=== PATIENT | female | born 1960 | race Caucasian/White ===

== ENCOUNTER 2018-01-04 03:57 | Inpatient (IN) | payer MEDICARE ==
[2018-01-04] MEDS ORDERED: Cefepime 2 GM VIAL ONE (05:24)
[2018-01-04] MEDS ORDERED: Acetaminophen 325 MG TAB ONE (05:35)
[2018-01-04 05:46] LABS: Actual Bicarbonate (HCO3a) 20.8 mEq/L (22-26); Base Excess (BEa) 2.3 mEq/L (0 (+/-) 2.5); CO2 Tension 30.5 mmHg (35.0-45.0); Hematocrit-ABG 38.6 % (36.0-47.0); Hemoglobin (Hb) 12.5 g/dL (12.0-16.0); O2 Tension (PaO2) 59.6 mmHg (80.0-100.0); pH, Arterial 7.45 (7.35-7.45)
[2018-01-04 05:47] LABS: Analyzer IN Cardio ER; Calcium, Ionized 1.1 mmol/L (1.12-1.30); Puncture Site RRA
[2018-01-04 05:48] LABS: ALV-art Gradient 99.395 (0-20)
[2018-01-04] MEDS ORDERED: Acetaminophen 325 MG TAB PO PRN (07:31)
[2018-01-04] MEDS ORDERED: Artificial Tears 18 DROP/0.9 ML EA EYE PRN (07:31)
[2018-01-04] MEDS ORDERED: Zolpidem Tartrate 5 MG TAB PO PRN (07:31)
[2018-01-04] MEDS ORDERED: Senokot 8.6 MG TAB PO PRN (07:31)
[2018-01-04] MEDS ORDERED: Sodium Chloride 0.65% Nasal 44 ML BOT EA NARE PRN (07:31)
[2018-01-04] MEDS ORDERED: hydrALAZINE 20 MG/ML VIAL SLOW IVP PRN (07:31)
[2018-01-04] MEDS ORDERED: Diabetic Tussin 200 MG/10 ML UDCUP PO PRN (07:31)
[2018-01-04] MEDS ORDERED: Loratadine 10 MG TAB PO PRN (07:31)
[2018-01-04] MEDS ORDERED: Mag-Al 1200 mg/1200 mg/30 ML UDCUP PO PRN (07:31)
[2018-01-04] MEDS ORDERED: Milk Of Magnesia 30 ML UDCUP PO PRN (07:31)
[2018-01-04] MEDS ORDERED: Chloraseptic Spray 180 ml Bottle PO PRN (07:31)
[2018-01-04] MEDS ORDERED: Eucerin (Mineral Oil/Petrolatum,White) 30 gm Jar TOP PRN (07:31)
[2018-01-04] MEDS ORDERED: Loperamide HCl 2 MG CAP PO PRN (07:31)
[2018-01-04 07:47] VITALS: BMI 2885.1
[2018-01-04] MEDS: Saccharomyces boulardii 250 MG CAP PO SCH (08:23)
[2018-01-04] MEDS: Enoxaparin Sodium 40 MG/0.4 ML SYRINGE SC SCH (08:24)
--- NOTE | 2018-01-04 09:27 | ULT ---
PRELIMINARY REPORT/[facility]/EMERGENTY AFTER-HOURS PROCEDURE US Abdomen Limited, Right Upper Quadrant EXAM DATE/TIME: Exam ordered 01/04/2018 5:22 AM CLINICAL HISTORY: 57 years old, female; Pain; Abdominal pain; Epigastric TECHNIQUE: Real-time ultrasound of the right upper quadrant with image documentation. COMPARISON: No relevant prior studies available. FINDINGS: Liver: Normal. No mass. No intrahepatic bile duct dilation. Gallbladder: There is no gallbladder wall thickening. A negative sonographic Marie sign is reported. Nonspecific gallbladder distention is present. Common bile duct: CBD measures approximate 4 mm in diameter. No stones. No dilation. Pancreas: Unremarkable as visualized. Right kidney: RIGHT kidney measures 10.4 x 4.5 x 4.5 cm. No stones. No hydronephrosis. IMPRESSION: Unremarkable RIGHT upper quadrant ultrasound. Thank you for allowing us to participate in the care of your patient. Dictated and Authenticated by: Jabier Hand MD 01/04/2018 5:54 AM Central Time ([place] & [place]) FINAL REPORT EMERGENCY AFTER HOURS RIGHT UPPER QUADRANT ULTRASOUND: Date: 01/04/18 Time: 0528 hours FINDINGS: No gallstones or ductal dilatation, or other acute process. IMPRESSION: Unremarkable right upper quadrant ultrasound. Report in agreement with preliminary report given on-call by [facility]. POS: OFF
[2018-01-04] MEDS: HYDROcodone/Acetaminophen 5/325 mg Tablet PO PRN ×3 (11:05→23:27)
[2018-01-04] MEDS: NS 0.9% w/ 20 MEQ KCL 1,000 ML/1,000 ML BAG IV SCH ×2 (11:41→18:44)
--- NOTE | 2018-01-04 11:57 | HP ---
PRIMARY CARE PHYSICIAN: Jo Ann Hamilton M.D. REASON FOR ADMISSION: Sepsis, pneumonia. HISTORY OF PRESENT ILLNESS: A 57-year-old female who has underlying history of COPD who initially went to [facility] for evaluation of nausea , vomiting and abdominal pain on the left side. She was also having high grade fever with chills. All symptoms started yesterday afternoon. Patient was feeling very weak. She was also having cough productive of greenish sputum with tinged amount of blood. She denies any recent travel or sick exposures. She denies any flu-like illness. She denies any upper respiratory infection. Patient also started feeling shortness of breath and she was having increasing amount of fever and that is why she decided to go to local emergency room in [place]. At [facility], patient had CT of the abdomen and pelvis which showed left lower lobe consolidation as well as gallbladder distention. Subsequently, patient had right upper quadrant ultrasound which was normal. The patient was afebrile with temperature of 102. She was tachycardic and hypotensive. She was meeting sepsis criteria. At [facility], patient was given levofloxacin, azithromycin, DuoNeb therapy, morphine, Toradol , and Phenergan. Subsequently, patient was transferred to our hospital for further evaluation and treatment. In our emergency room, patient has received cefepime without any side effect. The patient was persistently tachycardic and that is why she was admitted to telemetry floor. When I saw this patient, at that time, patient was afebrile, but tachycardic. Subsequently, patient had fever up to 100.5. Her pulse was also going to 140s whenever she was exerting herself. The patient reports that she does have home oxygen, but she is not using oxygen all the time. She continued to smoke about 1 pack per day. She denies any other alcohol abuse. PAST MEDICAL HISTORY: COPD and tobacco abuse disorder. PAST PSYCHIATRIC HISTORY: Anxiety and depression. PAST SURGICAL HISTORY: . SOCIAL HISTORY: Patient is smoking about 1 pack per day. She lives at home with her family. No history of alcohol abuse. She denies any other illicit drug abuse. EMERGENCY ROOM COURSE: Patient is given morphine 4 mg, Toradol 30 mg, Phenergan 25 mg, IV fluids, DuoNeb therapy, azithromycin and levofloxacin. The patient has received cefepime in our emergency room. ALLERGY: Penicillin CURRENT HOME MEDICATION: Prozac, Breo Ellipta, celebrex FAMILY HISTORY: No strong family history of premature coronary artery disease, stroke or cancer. REVIEW OF SYSTEMS: The following complete review of systems was negative, unless otherwise mentioned in the HPI or below: Constitutional: Weight loss or gain, ability to conduct usual activities. Skin: Rash, itching. Eyes: Double vision, pain. ENT/Mouth: Nose bleeding, neck stiffness, pain, tenderness. Cardiovascular: Palpitations, dyspnea on exertion, orthopnea. Respiratory: Shortness of breath, wheezing, cough, hemoptysis, fever or night sweats. Gastrointestinal: Poor appetite, abdominal pain, heartburn, nausea, vomiting, constipation, or diarrhea. Genitourinary: Urgency, frequency, dysuria, nocturia. Musculoskeletal: Pain, swelling. Neurologic/Psychiatric: Anxiety, depression. Allergy/Immunologic: Skin rash, bleeding tendency. Please see my HPI for pertinent positive and negative. All other review of systems reviewed and negative except as mentioned in the HPI. PHYSICAL EXAMINATION: VITAL SIGNS: On arrival, temperature 100.5, pulse 114, respiratory rate 20, saturation 96% on 2 liters nasal cannula, blood pressure 116/58, weight 102 pounds. GENERAL: Patient is currently alert, awake, febrile, tachycardic. No obvious acute distress. HEAD: Normocephalic, atraumatic. EYES: Pupils round, reactive to light. Extraocular muscle intact. ENT: Oropharynx within normal limits. Moist mucous membranes. No oral lesions , no pharyngeal erythema, no exudate. NECK: Supple, no JVD, no thyromegaly, no carotid bruit. LUNGS: Bibasilar rales noted predominantly on the left side. End expiratory wheezing heard. No accessory muscles of respiration in use. CARDIAC: S1 and S2 regular, tachycardia, no murmur, no gallop, no rub. ABDOMEN: Soft, bowel sounds present, nontender, nondistended. No organomegaly , no mass, no suprapubic tenderness, no Marie sign, no organomegaly. BACK: Examination unremarkable, no CVA tenderness. EXTREMITIES: Upper extremity, passive movement of all joints are normal. Lower extremities, no edema. Good peripheral pulsation, no calf tenderness. SKIN: No skin rash. HEMATOLOGICAL SYSTEM: No lymphadenopathy. PSYCHIATRIC: Normal affect. NEUROLOGIC: The patient is alert and oriented x3. Cranial nerves II-XII intact. Grossly nonfocal examination. She moves all 4 limbs. IMAGING DATA AND SIGNIFICANT LABORATORY DATA: EKG showing sinus tachycardia. Right upper quadrant ultrasound is normal. CT abdomen and pelvis showing dense consolidation in left lower lobe with pleural fluid. Moderate distention of gallbladder with intrahepatic biliary ductal dilatation. CBC: WBC 8.4, hemoglobin 14.3, platelet 311 with bandemia. ABG: PH 7.45, CO2 30.5, bicarbonate 20.8, oxygen 59.6, saturation 93.5 on oxygen. BMP: Sodium 134, potassium 3.4, chloride 98, carbon dioxide 23, anion gap 16, BUN 12, creatinine 0.72, glucose 107, calcium 9.1, lactic acid 2.6. LFT: AST 21, ALT 15, alkaline phosphatase 86, albumin 4.1, BNP 97.9 and lipase 5. ASSESSMENT AND PLAN/IMPRESSION: 1. Sepsis secondary to community-acquired pneumonia. Patient will be treated with cefepime and levofloxacin. We will follow up on culture result. We will continue with IV fluid. We will monitor closely on telemetry floor. This patient has high-grade fever, tachycardia, bandemia and lactic acidosis and she also has associated hypoxemia secondary to pneumonia. 2. Community-acquired pneumonia, left basilar consolidation with hypoxemia. The patient is treated with cefepime 2 grams IV q.12 hourly, levofloxacin 750 mg IV daily, DuoNeb q.6 hourly, Mucinex 600 mg twice daily. The patient will be given IV fluid and we will monitor on telemetry floor. We will monitor her oxygen saturation daily basis. 3. Lactic acidosis, likely due to sepsis and repeat lactic acid level is normal. 4. Hyponatremia, hypokalemia. Patient will be given NS with potassium chloride 825 mL per hour and we will repeat BMP tomorrow. 5. Chronic obstructive pulmonary disease exacerbation, likely due to underlying pneumonia. She will be treated with DuoNeb therapy every 6 hourly and as needed basis along with Dulera 2 puffs inhalation b.i.d. 6. Tobacco abuse disorder. Smoking cessation counseling given. We will offer nicotine patch if needed. 7. Gastroesophageal reflux disease. We will treat with Protonix 40 mg p.o. daily. 8. Deep venous thrombosis prophylaxis, Lovenox 40 mg subcu daily. 9. Gastrointestinal prophylaxis, Protonix 40 mg p.o. daily. CODE STATUS: The patient is FULL CODE. The patient is making her decision by herself. She does not have any surrogate decision maker. Disposition plan based on clinical course. We are expecting patient's stay in hospital more than 2 midnights. Plan of care discussed with the patient in detail. LUISA
[2018-01-04] MEDS: Promethazine HCl 25 MG/ML VIAL IM/IV PRN (13:42)
[2018-01-04] MEDS: Cefepime 2 GM in Sodium Chloride 0.9% 100 ML IVPB SCH (18:45)
[2018-01-04] MEDS: Mometasone/Formoterol 120 PUFF INHALER INH SCH ×2 (18:59→19:00)
[2018-01-04] MEDS: Montelukast Sodium 10 mg Tablet PO SCH (19:50)
[2018-01-04] MEDS: guaiFENesin ER 600 MG TAB PO SCH (19:50)
[2018-01-04 23:46] LABS: Bilirubin Negative (Negative); Blood, Urine Negative (Negative); Clarity CLEAR (Clear); Glucose, Urine (Dipstick) Negative (Negative); Leukocyte Negative (Negative); Nitrite Negative (Negative); Protein, Urine (Dipstick) Negative (Neg-Trace); Specific Gravity, Urine 1.013 (1.002-1.036); Urobilinogen 0.2 mg/dL (0.2-1.0); pH, Urine 5.5 (5.0-9.0)
[2018-01-04 23:49] LABS: Bacteria/HPF None Seen HPF (None Seen); Hyaline Casts/LPF 0-3 HYALINE CAST LPF (0-3 Hyaline); Pathc Cast-AUWi Flag 0.29 (0-2.49); RBC/HPF 0-3 HPF (0-3); Squamous Epithelial 0-3 HPF (0-3); WBC/HPF 0-3 HPF (0-3)
[2018-01-05] MEDS: Ipratropium Bromide 2.5 ml Neb NEB SCH ×4 (00:57→19:29)
[2018-01-05] MEDS: Cefepime 2 GM in Sodium Chloride 0.9% 100 ML IVPB SCH ×2 (05:05→17:35)
[2018-01-05] MEDS: NS 0.9% w/ 20 MEQ KCL 1,000 ML/1,000 ML BAG IV SCH ×3 (05:05→17:35)
[2018-01-05] MEDS: HYDROcodone/Acetaminophen 5/325 mg Tablet PO PRN ×5 (05:06→23:46)
[2018-01-05 05:23] LABS: ALT (SGPT) 10 U/L (8-55); AST (SGOT) 16 U/L (5-34); Alkaline Phosphatase 63 U/L (40-150); Anion Gap 9 mmol/L (10-20); BUN (Urea Nitrogen) 12 mg/dL (9.8-20.1); Bilirubin, Total 0.5 mg/dL (0.2-1.2); Calc. Creatinine Clearance 72 mL/min (70-130); Calcium 8.2 mg/dL (7.8-10.44); Carbon Dioxide 18 mmol/L (22-29); Chloride 110 mmol/L (98-107); Estimated GFR-MDRD Greater than 90; Glucose 61 mg/dL (70-105); Potassium 3.7 mmol/L (3.5-5.1); Sodium 133 mmol/L (136-145)
[2018-01-05 05:33] LABS: Band 38 % (5-11); Hemoglobin 13.3 g/dL (12.0-16.0); Lymphocytes 18 % (21-51); MDiff Complete? YES; Mean Corpuscular Hemoglobin 32.7 pg (27.0-31.0); Mean Corpuscular Volume 96.2 fl (81.0-99.0); Mean Platelet Volume 6.5 fL (7.4-10.4); Metamyelocyte 3 % (0-0); Monocytes 3 % (0-10); Neutrophil 38 % (42-75); Platelet Count 203 thou/uL (130-400); RBC Distribution Width 11.4 % (11.5-14.5); Red Blood Cell (RBC) Count 4.06 mill/uL (4.20-5.40); Toxic Granulation SLIGHT; Vacuoles SLIGHT; White Blood Cell (WBC) Count 7.3 thou/uL (4.8-10.8)
[2018-01-05] MEDS: Mometasone/Formoterol 120 PUFF INHALER INH SCH ×4 (07:28→19:32)
[2018-01-05] MEDS: Enoxaparin Sodium 40 MG/0.4 ML SYRINGE SC SCH (08:58)
[2018-01-05] MEDS: Saccharomyces boulardii 250 MG CAP PO SCH (08:59)
[2018-01-05] MEDS: DULoxetine 60 MG CAP PO SCH (08:59)
[2018-01-05] MEDS: CeleCOXIB 100 MG CAP PO SCH (08:59)
[2018-01-05] MEDS: guaiFENesin ER 600 MG TAB PO SCH ×2 (08:59→19:37)
[2018-01-05] MEDS: PARoxetine 20 MG TAB PO SCH (08:59)
[2018-01-05] MEDS ORDERED: Prevnar 13-Val Conj/PF 0.5 ML SYRINGE IM ONE (09:00)
--- NOTE | 2018-01-05 10:23 | PDOC.PN ---
- Subjective Encounter Start Date: 01/05/18 Encounter Start Time: 07:20 -: old records requested/rev Patient seen and examined. No new complaints. No overnight events no fever today, feels better, has pleuritic chest pain - Objective Resuscitation Status: Resuscitation Status FULL:Full Resuscitation MAR Reviewed: Yes Vital Signs & Weight: Vital Signs (12 hours) Temp Pulse Resp BP BP Pulse Ox 01/05/18 07:26 102 H 18 92 L 01/05/18 07:09 98.3 F 104 H 16 117/55 L 92 L 01/05/18 04:00 98.3 F 101 H 17 120/56 L 94 L 01/05/18 00:57 100 16 95 01/04/18 23:34 99.8 F H 118 H 18 129/63 93 L Weight Weight 107 lb I&O: 01/04/18 01/05/18 01/06/18 06:59 06:59 06:59 Intake Total 1670 Output Total 100 Balance 1570 Result Diagrams: 01/05/18 04:54 01/05/18 04:54 EKG Reviewed by me: Yes (nsr) Phys Exam - Physical Examination Constitutional: NAD HEENT: PERRLA, moist MMs, sclera anicteric Neck: no JVD, supple Respiratory: no wheezing, no rhonchi left base rales Cardiovascular: RRR, no significant murmur, no rub Gastrointestinal: soft, non-tender, no distention, positive bowel sounds Musculoskeletal: no edema, pulses present Neurological: non-focal, normal sensation, moves all 4 limbs Lymphatic: no nodes Psychiatric: normal affect, A&O x 3 Skin: no rash, normal turgor Dx/Plan (1) COPD exacerbation Code(s): J44.1 - CHRONIC OBSTRUCTIVE PULMONARY DISEASE W (ACUTE) EXACERBATION Status: Acute (2) Community acquired bacterial pneumonia Code(s): J15.9 - UNSPECIFIED BACTERIAL PNEUMONIA Status: Acute (3) Hypoxia Code(s): R09.02 - HYPOXEMIA Status: Acute (4) Lactic acidosis Code(s): E87.2 - ACIDOSIS Status: Acute (5) Sepsis Code(s): A41.9 - SEPSIS, UNSPECIFIED ORGANISM Status: Acute (6) Anxiety and depression Code(s): F41.9 - ANXIETY DISORDER, UNSPECIFIED; F32.9 - MAJOR DEPRESSIVE DISORDER, SINGLE EPISODE, UNSPECIFIED Status: Chronic (7) GERD (gastroesophageal reflux disease) Code(s): K21.9 - GASTRO-ESOPHAGEAL REFLUX DISEASE WITHOUT ESOPHAGITIS Status: Chronic (8) Tobacco abuse Code(s): Z72.0 - TOBACCO USE Status: Chronic - Plan cont current plan of care, plan discussed w/ family, continue antibiotics, respiratory therapy * continue cefepime and levaquin * continue respiratory therapy * pt is improving * will dc tele * transfer to medical * expecting discharge on wednesday * medication reviewed as below * symptomatic treatment * discussed with * counselled to avoid smoking. Review of Systems - Review of Systems Constitutional: negative: fever, chills, sweats, weakness, malaise, other Eyes: negative: Pain, Vision Change, Conjunctivae Inflammation, Eyelid Inflammation, Redness, Other ENT: negative: Ear Pain, Ear Discharge, Nose Pain, Nose Discharge, Nose Congestion, Mouth Pain, Mouth Swelling, Throat Pain, Throat Swelling, Other Respiratory: Cough, Hemoptysis, SOB with Excertion, Pleuritic Pain, Sputum. negative: Dry, Shortness of Breath, Wheezing Cardiovascular: negative: chest pain, palpitations, orthopnea, paroxysmal nocturnal dyspnea, edema, light headedness, other Gastrointestinal: negative: Nausea, Vomiting, Abdominal Pain, Diarrhea, Constipation, Melena, Hematochezia, Other Genitourinary: negative: Dysuria, Frequency, Incontinence, Hematuria, Retention , Other Musculoskeletal: negative: Neck Pain, Shoulder Pain, Arm Pain, Back Pain, Hand Pain, Leg Pain, Foot Pain, Other Skin: negative: Rash, Lesions, Jace, Bruising, Other - Medications/Allergies Allergies/Adverse Reactions: Allergies Allergy/AdvReac Type Severity Reaction Status Date / Time methylprednisolone sodium Allergy Verified 06/06/13 17:03 succinate [From Solu-Medrol] ondansetron HCl [From Zofran] Allergy Verified 06/06/13 17:03 Penicillins Allergy Verified 06/06/13 17:02 Medications: Current Medications Acetaminophen (Tylenol) 650 mg PO Q4H PRN PRN Reason: Headache/Fever or Pain Last Admin: 01/04/18 23:28 Dose: 650 mg Hydrocodone Bitart/Acetaminophen ([place] 5/325) 1 tab PO Q4H PRN PRN Reason: Moderate Pain (4-6) Last Admin: 01/05/18 09:17 Dose: 1 tab Al Hydroxide/Mg Hydroxide (Maalox) 30 ml PO Q6H PRN PRN Reason: Heartburn or Indigestion Albuterol/Ipratropium (Duoneb) 3 ml NEB [id number] PRN PRN Reason: SOB &/or Wheezing Last Admin: 01/04/18 18:56 Dose: 3 ml Artificial Tears (Tears Naturale) 0 drop EA EYE PRN PRN PRN Reason: Dry Eyes Celecoxib (Celebrex) 200 mg PO DAILY [facility] Last Admin: 01/05/18 08:59 Dose: Not Given Duloxetine HCl (Cymbalta) 60 mg PO DAILY [facility] Last Admin: 01/05/18 08:59 Dose: 60 mg Enoxaparin Sodium (Lovenox) 40 mg SC 0900 [facility] Last Admin: 01/05/18 08:58 Dose: 40 mg Guaifenesin (Robitussin Sf) 200 mg PO Q4H PRN PRN Reason: Cough Guaifenesin (Mucinex) 600 mg PO Q12HR [facility] Last Admin: 01/05/18 08:59 Dose: 600 mg Hydralazine HCl (Apresoline) 10 mg SLOW IVP Q4H PRN PRN Reason: Systolic BP > 180 Cefepime HCl 2 gm/ Sodium (Chloride) 100 mls @ 200 mls/hr IVPB 0600,1800 [facility] Last Admin: 01/05/18 05:05 Dose: 100 mls Levofloxacin 750 mg/ Device 150 mls @ 100 mls/hr IVPB Q24HR [facility] Last Admin: 01/05/18 08:58 Dose: 150 mls Potassium Chloride/Sodium Chloride (Ns 0.9% W/ 20 Meq Kcl) 1,000 ml in 1,000 mls @ 125 mls/hr IV .Q8H [facility] Last Admin: 01/05/18 05:05 Dose: 1,000 mls Ipratropium [place] (Atrovent) 3 ml NEB [id number] [facility] Last Admin: 01/05/18 07:26 Dose: 3 ml Loperamide HCl (Imodium) 2 mg PO PRN PRN PRN Reason: Diarrhea/Loose Stools Loratadine (Claritin) 10 mg PO DAILYPRN PRN PRN Reason: Sinus Symptoms Magnesium Hydroxide (Milk Of Magnesium) 30 ml PO DAILYPRN PRN PRN Reason: Constipation Mineral Oil/White Petrolatum (Eucerin Cream) 0 gm TOP BIDPRN PRN PRN Reason: Dry Skin Mometasone Furoate/Formoterol Fumar (Dulera 200 Mcg/5 Mcg Inhaler) 2 puff INH BID-RT [facility] Last Admin: 01/05/18 07:29 Dose: Not Given Mometasone Furoate/Formoterol Fumar (Dulera 200 Mcg/5 Mcg Inhaler) 2 puff INH BID-RT [facility] Last Admin: 01/05/18 07:28 Dose: 2 puff Montelukast Sodium (Singulair) 10 mg PO HS [facility] Last Admin: 01/04/18 19:50 Dose: 10 mg Pantoprazole Sodium (Protonix) 40 mg PO DAILY [facility] Last Admin: 01/05/18 08:59 Dose: 40 mg Paroxetine HCl (Paxil) 40 mg PO DAILY [facility] Last Admin: 01/05/18 08:59 Dose: Not Given Phenol (Chloraseptic [place] 180 Ml Bot) 0 ml PO PRN PRN PRN Reason: Sore Throat Promethazine HCl (Phenergan) 12.5 mg IM/IV Q6H PRN PRN Reason: Nausea/Vomiting Last Admin: 01/04/18 13:42 Dose: 12.5 mg Saccharomyces Boulardii (Florastor) 250 mg PO DAILY [facility] Last Admin: 01/05/18 08:59 Dose: 250 mg Senna (Senokot) 2 tab PO HSPRN PRN PRN Reason: Constipation Sodium Chloride ([place] Nasal [place] 0.65%) 0 ml EA NARE QIDPRN PRN PRN Reason: Nasal Congestion Sodium Chloride (Flush - Normal Saline) 10 ml IVF Q12HR [facility] Last Admin: 01/05/18 08:57 Dose: 10 ml Sodium Chloride (Flush - Normal Saline) 10 ml IVF PRN PRN PRN Reason: Saline Flush Zolpidem Tartrate (Ambien) 5 mg PO HSPRN PRN PRN Reason: Insomnia
[2018-01-05] MEDS: Montelukast Sodium 10 mg Tablet PO SCH (19:37)
[2018-01-06] MEDS: Ipratropium Bromide 2.5 ml Neb NEB SCH ×4 (00:31→19:05)
[2018-01-06] MEDS: NS 0.9% w/ 20 MEQ KCL 1,000 ML/1,000 ML BAG IV SCH ×3 (02:01→19:04)
[2018-01-06] MEDS: Cefepime 2 GM in Sodium Chloride 0.9% 100 ML IVPB SCH ×2 (06:57→18:20)
[2018-01-06] MEDS: HYDROcodone/Acetaminophen 5/325 mg Tablet PO PRN ×2 (06:57→11:46)
[2018-01-06] MEDS: Mometasone/Formoterol 120 PUFF INHALER INH SCH ×2 (07:14→20:09)
[2018-01-06] MEDS: guaiFENesin ER 600 MG TAB PO SCH ×2 (08:18→20:04)
[2018-01-06] MEDS: Saccharomyces boulardii 250 MG CAP PO SCH (08:18)
[2018-01-06] MEDS: DULoxetine 60 MG CAP PO SCH (08:18)
[2018-01-06] MEDS: CeleCOXIB 100 MG CAP PO SCH (08:18)
[2018-01-06] MEDS: PARoxetine 20 MG TAB PO SCH ×2 (08:19→08:22)
[2018-01-06] MEDS: Enoxaparin Sodium 40 MG/0.4 ML SYRINGE SC SCH (08:19)
--- NOTE | 2018-01-06 10:53 | PDOC.PN ---
- Subjective Encounter Start Date: 01/06/18 Encounter Start Time: 09:10 Patient seen and examined. No new complaints. No overnight events - Objective Resuscitation Status: Resuscitation Status FULL:Full Resuscitation MAR Reviewed: Yes Vital Signs & Weight: Vital Signs (12 hours) Temp Pulse Resp BP BP Pulse Ox 01/06/18 07:28 97.9 F 106 H 20 103/48 L 91 L 01/06/18 07:23 98.6 F 93 16 01/06/18 07:14 93 16 01/06/18 07:09 93 L 01/06/18 07:04 93 16 01/06/18 05:57 98.6 F 95 16 106/66 93 L 01/06/18 01:40 98.3 F 94 18 93/60 92 L 01/06/18 00:31 91 16 93 L 01/06/18 00:15 97.9 F 83 18 99/63 93 L Weight Weight 107 lb I&O: 01/05/18 01/06/18 01/07/18 06:59 06:59 06:59 Intake Total 1670 2600 Output Total 100 Balance 1570 2600 Result Diagrams: 01/05/18 04:54 01/05/18 04:54 Phys Exam - Physical Examination Constitutional: NAD HEENT: PERRLA, moist MMs, sclera anicteric Neck: no JVD, supple Respiratory: no wheezing, no rales, no rhonchi Cardiovascular: RRR, no significant murmur, no rub Gastrointestinal: soft, non-tender, no distention, positive bowel sounds Musculoskeletal: no edema, pulses present Neurological: non-focal, normal sensation, moves all 4 limbs Psychiatric: normal affect, A&O x 3 Skin: no rash, normal turgor Dx/Plan (1) COPD exacerbation Code(s): J44.1 - CHRONIC OBSTRUCTIVE PULMONARY DISEASE W (ACUTE) EXACERBATION Status: Acute (2) Community acquired bacterial pneumonia Code(s): J15.9 - UNSPECIFIED BACTERIAL PNEUMONIA Status: Acute (3) Hypoxia Code(s): R09.02 - HYPOXEMIA Status: Acute (4) Lactic acidosis Code(s): E87.2 - ACIDOSIS Status: Acute (5) Sepsis Code(s): A41.9 - SEPSIS, UNSPECIFIED ORGANISM Status: Acute (6) Anxiety and depression Code(s): F41.9 - ANXIETY DISORDER, UNSPECIFIED; F32.9 - MAJOR DEPRESSIVE DISORDER, SINGLE EPISODE, UNSPECIFIED Status: Chronic (7) GERD (gastroesophageal reflux disease) Code(s): K21.9 - GASTRO-ESOPHAGEAL REFLUX DISEASE WITHOUT ESOPHAGITIS Status: Chronic (8) Tobacco abuse Code(s): Z72.0 - TOBACCO USE Status: Chronic - Plan cont current plan of care, continue antibiotics, respiratory therapy * continue cefepime and levaquin today * expecting discharge tomorrow * medication reviewed as below * symptomatic treatment * improving. Review of Systems - Review of Systems Constitutional: negative: fever, chills, sweats, weakness, malaise, other Eyes: negative: Pain, Vision Change, Conjunctivae Inflammation, Eyelid Inflammation, Redness, Other ENT: negative: Ear Pain, Ear Discharge, Nose Pain, Nose Discharge, Nose Congestion, Mouth Pain, Mouth Swelling, Throat Pain, Throat Swelling, Other Respiratory: Cough, Pleuritic Pain, Sputum. negative: Dry, Shortness of Breath , Hemoptysis, SOB with Excertion, Wheezing Cardiovascular: negative: chest pain, palpitations, orthopnea, paroxysmal nocturnal dyspnea, edema, light headedness, other Gastrointestinal: negative: Nausea, Vomiting, Abdominal Pain, Diarrhea, Constipation, Melena, Hematochezia, Other Genitourinary: negative: Dysuria, Frequency, Incontinence, Hematuria, Retention , Other Musculoskeletal: negative: Neck Pain, Shoulder Pain, Arm Pain, Back Pain, Hand Pain, Leg Pain, Foot Pain, Other Skin: negative: Rash, Lesions, Jace, Bruising, Other - Medications/Allergies Allergies/Adverse Reactions: Allergies Allergy/AdvReac Type Severity Reaction Status Date / Time methylprednisolone sodium Allergy Verified 06/06/13 17:03 succinate [From Solu-Medrol] ondansetron HCl [From Zofran] Allergy Verified 06/06/13 17:03 Penicillins Allergy Verified 06/06/13 17:02 Medications: Current Medications Acetaminophen (Tylenol) 650 mg PO Q4H PRN PRN Reason: Headache/Fever or Pain Last Admin: 01/04/18 23:28 Dose: 650 mg Hydrocodone Bitart/Acetaminophen ([place] 5/325) 1 tab PO Q4H PRN PRN Reason: Moderate Pain (4-6) Last Admin: 01/06/18 06:57 Dose: 1 tab Al Hydroxide/Mg Hydroxide (Maalox) 30 ml PO Q6H PRN PRN Reason: Heartburn or Indigestion Albuterol/Ipratropium (Duoneb) 3 ml NEB [id number] PRN PRN Reason: SOB &/or Wheezing Last Admin: 01/05/18 13:21 Dose: 3 ml Artificial Tears (Tears Naturale) 0 drop EA EYE PRN PRN PRN Reason: Dry Eyes Celecoxib (Celebrex) 200 mg PO DAILY [facility] Last Admin: 01/06/18 08:18 Dose: Not Given Duloxetine HCl (Cymbalta) 60 mg PO DAILY [facility] Last Admin: 01/06/18 08:18 Dose: 60 mg Enoxaparin Sodium (Lovenox) 40 mg SC 0900 [facility] Last Admin: 01/06/18 08:19 Dose: 40 mg Guaifenesin (Robitussin Sf) 200 mg PO Q4H PRN PRN Reason: Cough Guaifenesin (Mucinex) 600 mg PO Q12HR [facility] Last Admin: 01/06/18 08:18 Dose: 600 mg Hydralazine HCl (Apresoline) 10 mg SLOW IVP Q4H PRN PRN Reason: Systolic BP > 180 Cefepime HCl 2 gm/ Sodium (Chloride) 100 mls @ 200 mls/hr IVPB 0600,1800 [facility] Last Admin: 01/06/18 06:57 Dose: 100 mls Levofloxacin 750 mg/ Device 150 mls @ 100 mls/hr IVPB Q24HR [facility] Last Admin: 01/06/18 08:26 Dose: 150 mls Potassium Chloride/Sodium Chloride (Ns 0.9% W/ 20 Meq Kcl) 1,000 ml in 1,000 mls @ 125 mls/hr IV .Q8H [facility] Last Admin: 01/06/18 02:01 Dose: 1,000 mls Ipratropium [place] (Atrovent) 3 ml NEB [id number] [facility] Last Admin: 01/06/18 07:04 Dose: 2.5 ml Loperamide HCl (Imodium) 2 mg PO PRN PRN PRN Reason: Diarrhea/Loose Stools Loratadine (Claritin) 10 mg PO DAILYPRN PRN PRN Reason: Sinus Symptoms Magnesium Hydroxide (Milk Of Magnesium) 30 ml PO DAILYPRN PRN PRN Reason: Constipation Mineral Oil/White Petrolatum (Eucerin Cream) 0 gm TOP BIDPRN PRN PRN Reason: Dry Skin Mometasone Furoate/Formoterol Fumar (Dulera 200 Mcg/5 Mcg Inhaler) 2 puff INH BID-RT [facility] Last Admin: 01/06/18 07:14 Dose: 2 puff Montelukast Sodium (Singulair) 10 mg PO HS [facility] Last Admin: 01/05/18 19:37 Dose: 10 mg Pantoprazole Sodium (Protonix) 40 mg PO DAILY [facility] Last Admin: 01/06/18 08:19 Dose: 40 mg Paroxetine HCl (Paxil) 40 mg PO DAILY [facility] Last Admin: 01/06/18 08:22 Dose: Not Given Phenol (Chloraseptic [place] 180 Ml Bot) 0 ml PO PRN PRN PRN Reason: Sore Throat Promethazine HCl (Phenergan) 12.5 mg IM/IV Q6H PRN PRN Reason: Nausea/Vomiting Last Admin: 01/04/18 13:42 Dose: 12.5 mg Saccharomyces Boulardii (Florastor) 250 mg PO DAILY [facility] Last Admin: 01/06/18 08:18 Dose: 250 mg Senna (Senokot) 2 tab PO HSPRN PRN PRN Reason: Constipation Sodium Chloride ([place] Nasal [place] 0.65%) 0 ml EA NARE QIDPRN PRN PRN Reason: Nasal Congestion Sodium Chloride (Flush - Normal Saline) 10 ml IVF Q12HR [facility] Last Admin: 01/06/18 08:20 Dose: Not Given Sodium Chloride (Flush - Normal Saline) 10 ml IVF PRN PRN PRN Reason: Saline Flush Zolpidem Tartrate (Ambien) 5 mg PO HSPRN PRN PRN Reason: Insomnia
[2018-01-06] MEDS: Promethazine HCl 25 MG/ML VIAL IM/IV PRN (19:04)
[2018-01-06] MEDS: Montelukast Sodium 10 mg Tablet PO SCH (20:04)
[2018-01-07] MEDS: Ipratropium Bromide 2.5 ml Neb NEB SCH ×2 (00:11→07:01)
[2018-01-07] MEDS: Promethazine HCl 25 MG/ML VIAL IM/IV PRN ×2 (00:28→08:29)
[2018-01-07] MEDS: Cefepime 2 GM in Sodium Chloride 0.9% 100 ML IVPB SCH (05:30)
[2018-01-07] MEDS: NS 0.9% w/ 20 MEQ KCL 1,000 ML/1,000 ML BAG IV SCH ×2 (05:30→11:31)
[2018-01-07] MEDS: Mometasone/Formoterol 120 PUFF INHALER INH SCH (06:44)
[2018-01-07] MEDS: PARoxetine 20 MG TAB PO SCH (08:14)
[2018-01-07] MEDS: CeleCOXIB 100 MG CAP PO SCH (08:14)
[2018-01-07] MEDS: DULoxetine 60 MG CAP PO SCH (08:15)
[2018-01-07] MEDS: Enoxaparin Sodium 40 MG/0.4 ML SYRINGE SC SCH ×2 (08:15→08:22)
[2018-01-07] MEDS: guaiFENesin ER 600 MG TAB PO SCH (08:15)
[2018-01-07] MEDS: Saccharomyces boulardii 250 MG CAP PO SCH (08:15)
--- NOTE | 2018-01-07 10:31 | PDOC.PN ---
- Subjective Encounter Start Date: 01/07/18 Encounter Start Time: 07:50 Patient seen and examined pneumonia, today she has nausea and does not feel normal, is not ready to take discharge. No overnight events - Objective Resuscitation Status: Resuscitation Status FULL:Full Resuscitation MAR Reviewed: Yes Vital Signs & Weight: Vital Signs (12 hours) Temp Pulse Resp BP BP Pulse Ox 01/07/18 08:00 98.0 F 105 H 16 01/07/18 07:00 98.0 F 105 H 16 122/74 97 01/07/18 06:45 110 H 18 01/07/18 04:26 98.3 F 103 H 20 125/82 97 01/07/18 00:00 98.0 F 106 H 18 134/83 98 Weight Weight 107 lb I&O: 01/06/18 01/07/18 01/08/18 06:59 06:59 06:59 Intake Total 2600 3520 Balance 2600 3520 Result Diagrams: 01/05/18 04:54 01/05/18 04:54 Phys Exam - Physical Examination Constitutional: NAD HEENT: PERRLA, moist MMs, sclera anicteric Neck: no JVD, supple Respiratory: no wheezing, no rales, no rhonchi reduced air entry Cardiovascular: RRR, no significant murmur, no rub Gastrointestinal: soft, non-tender, no distention, positive bowel sounds Musculoskeletal: no edema, pulses present Neurological: non-focal, normal sensation, moves all 4 limbs Lymphatic: no nodes Psychiatric: normal affect, A&O x 3 Skin: no rash, normal turgor Dx/Plan (1) COPD exacerbation Code(s): J44.1 - CHRONIC OBSTRUCTIVE PULMONARY DISEASE W (ACUTE) EXACERBATION Status: Acute (2) Community acquired bacterial pneumonia Code(s): J15.9 - UNSPECIFIED BACTERIAL PNEUMONIA Status: Acute (3) Hypoxia Code(s): R09.02 - HYPOXEMIA Status: Acute (4) Lactic acidosis Code(s): E87.2 - ACIDOSIS Status: Acute (5) Sepsis Code(s): A41.9 - SEPSIS, UNSPECIFIED ORGANISM Status: Acute (6) Anxiety and depression Code(s): F41.9 - ANXIETY DISORDER, UNSPECIFIED; F32.9 - MAJOR DEPRESSIVE DISORDER, SINGLE EPISODE, UNSPECIFIED Status: Chronic (7) GERD (gastroesophageal reflux disease) Code(s): K21.9 - GASTRO-ESOPHAGEAL REFLUX DISEASE WITHOUT ESOPHAGITIS Status: Chronic (8) Tobacco abuse Code(s): Z72.0 - TOBACCO USE Status: Chronic - Plan cont current plan of care, continue antibiotics, respiratory therapy * continue cefepime and levaquin * medication reviewed as below * symptomatic treatment * will monitor one more day per pt and family request. Review of Systems - Review of Systems Constitutional: negative: fever, chills, sweats, weakness, malaise, other Eyes: negative: Pain, Vision Change, Conjunctivae Inflammation, Eyelid Inflammation, Redness, Other ENT: negative: Ear Pain, Ear Discharge, Nose Pain, Nose Discharge, Nose Congestion, Mouth Pain, Mouth Swelling, Throat Pain, Throat Swelling, Other Respiratory: Cough, Sputum. negative: Dry, Shortness of Breath, Hemoptysis, SOB with Excertion, Pleuritic Pain, Wheezing Cardiovascular: negative: chest pain, palpitations, orthopnea, paroxysmal nocturnal dyspnea, edema, light headedness, other Gastrointestinal: Nausea, Vomiting. negative: Abdominal Pain, Diarrhea, Constipation, Melena, Hematochezia, Other Genitourinary: negative: Dysuria, Frequency, Incontinence, Hematuria, Retention , Other Musculoskeletal: negative: Neck Pain, Shoulder Pain, Arm Pain, Back Pain, Hand Pain, Leg Pain, Foot Pain, Other Skin: negative: Rash, Lesions, Jace, Bruising, Other - Medications/Allergies Allergies/Adverse Reactions: Allergies Allergy/AdvReac Type Severity Reaction Status Date / Time methylprednisolone sodium Allergy Verified 06/06/13 17:03 succinate [From Solu-Medrol] ondansetron HCl [From Zofran] Allergy Verified 06/06/13 17:03 Penicillins Allergy Verified 06/06/13 17:02 Medications: Current Medications Acetaminophen (Tylenol) 650 mg PO Q4H PRN PRN Reason: Headache/Fever or Pain Last Admin: 01/04/18 23:28 Dose: 650 mg Hydrocodone Bitart/Acetaminophen ([place] 5/325) 1 tab PO Q4H PRN PRN Reason: Moderate Pain (4-6) Last Admin: 01/06/18 11:46 Dose: 1 tab Al Hydroxide/Mg Hydroxide (Maalox) 30 ml PO Q6H PRN PRN Reason: Heartburn or Indigestion Albuterol/Ipratropium (Duoneb) 3 ml NEB [id number] PRN PRN Reason: SOB &/or Wheezing Last Admin: 01/07/18 06:45 Dose: 3 ml Artificial Tears (Tears Naturale) 0 drop EA EYE PRN PRN PRN Reason: Dry Eyes Celecoxib (Celebrex) 200 mg PO DAILY [facility] Last Admin: 01/07/18 08:14 Dose: Not Given Duloxetine HCl (Cymbalta) 60 mg PO DAILY [facility] Last Admin: 01/07/18 08:15 Dose: 60 mg Enoxaparin Sodium (Lovenox) 40 mg SC 0900 [facility] Last Admin: 01/07/18 08:22 Dose: Not Given Guaifenesin (Robitussin Sf) 200 mg PO Q4H PRN PRN Reason: Cough Last Admin: 01/06/18 20:06 Dose: 200 mg Guaifenesin (Mucinex) 600 mg PO Q12HR [facility] Last Admin: 01/07/18 08:15 Dose: 600 mg Hydralazine HCl (Apresoline) 10 mg SLOW IVP Q4H PRN PRN Reason: Systolic BP > 180 Cefepime HCl 2 gm/ Sodium (Chloride) 100 mls @ 200 mls/hr IVPB 0600,1800 [facility] Last Admin: 01/07/18 05:30 Dose: 100 mls Potassium Chloride/Sodium Chloride (Ns 0.9% W/ 20 Meq Kcl) 1,000 ml in 1,000 mls @ 125 mls/hr IV .Q8H [facility] Last Admin: 01/07/18 05:30 Dose: 1,000 mls Ipratropium [place] (Atrovent) 3 ml NEB [id number] [facility] Last Admin: 01/07/18 07:01 Dose: Not Given Levofloxacin (Levaquin) 750 mg PO 0600 [facility] Last Admin: 01/07/18 05:30 Dose: 750 mg Loperamide HCl (Imodium) 2 mg PO PRN PRN PRN Reason: Diarrhea/Loose Stools Loratadine (Claritin) 10 mg PO DAILYPRN PRN PRN Reason: Sinus Symptoms Magnesium Hydroxide (Milk Of Magnesium) 30 ml PO DAILYPRN PRN PRN Reason: Constipation Mineral Oil/White Petrolatum (Eucerin Cream) 0 gm TOP BIDPRN PRN PRN Reason: Dry Skin Mometasone Furoate/Formoterol Fumar (Dulera 200 Mcg/5 Mcg Inhaler) 2 puff INH BID-RT [facility] Last Admin: 01/07/18 06:44 Dose: 2 puff Montelukast Sodium (Singulair) 10 mg PO HS [facility] Last Admin: 01/06/18 20:04 Dose: 10 mg Pantoprazole Sodium (Protonix) 40 mg PO DAILY [facility] Last Admin: 01/07/18 08:15 Dose: 40 mg Paroxetine HCl (Paxil) 40 mg PO DAILY [facility] Last Admin: 01/07/18 08:14 Dose: Not Given Phenol (Chloraseptic [place] 180 Ml Bot) 0 ml PO PRN PRN PRN Reason: Sore Throat Promethazine HCl (Phenergan) 12.5 mg IM/IV Q6H PRN PRN Reason: Nausea/Vomiting Last Admin: 01/07/18 08:29 Dose: 12.5 mg Saccharomyces Boulardii (Florastor) 250 mg PO DAILY [facility] Last Admin: 01/07/18 08:15 Dose: 250 mg Senna (Senokot) 2 tab PO HSPRN PRN PRN Reason: Constipation Sodium Chloride ([place] Nasal [place] 0.65%) 0 ml EA NARE QIDPRN PRN PRN Reason: Nasal Congestion Sodium Chloride (Flush - Normal Saline) 10 ml IVF Q12HR [facility] Last Admin: 01/07/18 08:16 Dose: Not Given Sodium Chloride (Flush - Normal Saline) 10 ml IVF PRN PRN PRN Reason: Saline Flush Zolpidem Tartrate (Ambien) 5 mg PO HSPRN PRN PRN Reason: Insomnia
[2018-01-07 11:00] VITALS: BP 127/84; TEMP 98.3
--- NOTE | 2018-01-07 11:12 | DIS ---
DATE OF ADMISSION: 01/04/2018 DATE OF DISCHARGE: 01/07/2018 PRIMARY CARE PHYSICIAN: Jo Ann Hamilton M.D. DISCHARGE DISPOSITION: Home. PRIMARY DISCHARGE DIAGNOSES: 1. Sepsis. 2. Community-acquired bacterial pneumonia. 3. Chronic obstructive pulmonary disease exacerbation. 4. Hypoxia. 5. Lactic acidosis. SECONDARY DISCHARGE DIAGNOSES: Chronic obstructive pulmonary disease, anxiety and depression, chroni c respiratory failure, gastroesophageal reflux disease, tobacco abuse disorder. PRIMARY PROCEDURE/OPERATION: None. RADIOLOGICAL INVESTIGATION: Abdominal ultrasound was unremarkable. Chest x-ray showed left lower lo be pneumonia. Abdomen and pelvis CT scan was unremarkable. SIGNIFICANT LABORATORY DATA: WBC 7.3, hemoglobin 13.3, and platelet 203. Sodium 133, potassium 3.7, BUN 12, creatinine 0.63. LFT normal. Urinalysis normal. Blood culture negative. DISCHARGE MEDICATIONS: Celebrex 200 mg p.o. daily, Cymbalta 60 mg p.o. daily, Breo Ellipta one inhal ation daily, Mucinex 600 mg twice daily for 7 days, Levaquin 750 mg p.o. daily for 7 days, Singulair 10 mg p.o. at bedtime, Paxil 40 mg p.o. daily, ranitidine 150 mg p.o. b.i.d., Florastor 250 mg p.o. d aily for 7 days, Incruse Ellipta 1 inhalation daily. CONTRAINDICATIONS: None. CODE STATUS: FULL CODE. INPATIENT CONSULTANTS: None. ALLERGIES: SOLU-MEDROL, ZOFRAN and PENICILLIN. DISCHARGE PLAN: Post hospital, patient will follow up with primary care physician in 1 week. HOSPITAL COURSE: A 57-year-old female who was admitted by mo on 01/04/2018. Please see my HPI for f urther details. This patient initially went to [facility] for left lower quadrant p ain and cough, shortness of breath, fever which was started 1 or 2-day prior to admission. Patient w as diagnosed with left basilar consolidation. She was transferred to our hospital for admission. We treated her with cefepime and levofloxacin while in hospital. Initially, she was meeting sepsis cri teria and that is why she was observed on telemetry floor, but subsequently upon improvement, we andrade sferred her to medical floor. Patient was treated with cefepime and Levaquin while in hospital. Upon discharge, we changed to Leva chucho for another 7 days. We continued the patient's home medication while in hospital. Discharge me dication reconciliation done. Earlier today, she was complaining of nausea and vomiting and she expressed her wish to stay in [facility], but after that she changed her mind and she decided to go home, especially she has graduation ce remony for her kids. All new medication prescription sent to her pharmacy. The patient is seen and examined at bedside to day. Please see my progress note from today for further details.
== END 2018-01-07 11:53 | disposition home or self-care (01) | DRG 871 ==
LOC: ERS 03:57 → 2NO 06:01 → T4-A 01-05 13:05
PROVIDERS: ADMIT Internal Medicine; ATTEND Internal Medicine
DX: A41.9 Sepsis, unspecified organism (principal); J18.9 Pneumonia, unspecified organism; E87.2 Acidosis; J44.1 Chronic obstructive pulmonary disease with (acute) exacerbation; E87.6 Hypokalemia; F17.210 Nicotine dependence, cigarettes, uncomplicated; F32.9 Major depressive disorder, single episode, unspecified; F41.9 Anxiety disorder, unspecified; Z88.0 Allergy status to penicillin; Z79.899 Other long term (current) drug therapy; K21.9 Gastro-esophageal reflux disease without esophagitis; R09.02 Hypoxemia; Z88.8 Allergy status to other drugs, medicaments and biological substances
CPT/HCPCS: 36415; 76705; 80053; 81001; 82805; 85025; 94640; 94760; 96360; 96365; A4216; J0692; J1650; J1956; J2550; J7050; J7620; J7644

== ENCOUNTER 2018-01-08 10:02 | Inpatient (IN) | payer MEDICARE ==
--- NOTE | 2018-01-08 10:52 | RAD ---
CHEST UPRIGHT PORTABLE: Date: 01/08/18 HISTORY: 57-year-old female with history of follow-up pneumonia, increasing lethargy, blood-tinged sputum, and diarrhea. COMPARISON: 01/03/18. FINDINGS: Monitor leads overlie the chest. Heart size within normal limits. There appear to be some progressive bilateral pleural effusions, as well as some bilateral vascular congestion, with some linear and int erstitial parenchymal changes, more prominent in the left lung, evidence for associated left lower lo be pneumonia. IMPRESSION: Progressive bilateral pleural effusions. Persistent left lower lobe pneumonia. Stable heart size. POS: [facility]
[2018-01-08 11:01] LABS: ALT (SGPT) 19 U/L (8-55); AST (SGOT) 49 U/L (5-34); Albumin 3.3 g/dL (3.5-5.0); Alkaline Phosphatase 90 U/L (40-150); Anion Gap 15 mmol/L (10-20); BUN (Urea Nitrogen) Less than 4 mg/dL (9.8-20.1); Bilirubin, Total 0.6 mg/dL (0.2-1.2); Calc. Creatinine Clearance 0 mL/min (70-130); Calcium 8.5 mg/dL (7.8-10.44); Carbon Dioxide 24 mmol/L (22-29); Chloride 98 mmol/L (98-107); Estimated GFR-MDRD Greater than 90; Glucose 98 mg/dL (70-105); Potassium 3.4 mmol/L (3.5-5.1); Protein, Total 6.3 g/dL (6.0-8.3); Sodium 134 mmol/L (136-145)
[2018-01-08 11:24] LABS: Band 4 % (5-11); Eosinophils 1 % (0-10); Hemoglobin 12.9 g/dL (12.0-16.0); Lymphocytes 14 % (21-51); MDiff Complete? YES; Mean Corpuscular HGB CONC 33.2 g/dL (32.0-36.0); Mean Corpuscular Hemoglobin 31.3 pg (27.0-31.0); Mean Corpuscular Volume 94.1 fl (81.0-99.0); Mean Platelet Volume 6.7 fL (7.4-10.4); Metamyelocyte 2 % (0-0); Monocytes 10 % (0-10); Myelocyte 1 % (0-0); Neutrophil 66 % (42-75); PLT Morphology Comment Appears Adequate; Platelet Count 291 thou/uL (130-400); RBC Distribution Width 11.9 % (11.5-14.5); RBC Morphology Normal; Reactive Lymphocytes 2 % (0-10); Red Blood Cell (RBC) Count 4.13 mill/uL (4.20-5.40); White Blood Cell (WBC) Count 9.7 thou/uL (4.8-10.8)
[2018-01-08] MEDS ORDERED: Ondansetron ODT 4 MG TAB PO PRN ×2 (12:17→14:07)
[2018-01-08 12:25] LABS: CKMB 18.3 ng/mL (0-6.6); Troponin I 8.396 ng/mL (< 0.028)
[2018-01-08] MEDS ORDERED: Ondansetron ODT 8 MG TAB ONE (12:51)
[2018-01-08] MEDS ORDERED: Enoxaparin Sodium 60 MG/0.6 ML SYRINGE ONE (12:51)
[2018-01-08] MEDS ORDERED: Diabetic Tussin 200 MG/10 ML UDCUP PO PRN (14:07)
[2018-01-08] MEDS ORDERED: VANCOMYCIN IVPB PRN (14:07)
[2018-01-08] MEDS ORDERED: Mag-Al 1200 mg/1200 mg/30 ML UDCUP PO PRN (14:07)
[2018-01-08] MEDS ORDERED: hydrALAZINE 20 MG/ML VIAL SLOW IVP PRN (14:07)
[2018-01-08] MEDS ORDERED: Artificial Tears 18 DROP/0.9 ML EA EYE PRN (14:07)
[2018-01-08] MEDS ORDERED: Senokot 8.6 MG TAB PO PRN (14:07)
[2018-01-08] MEDS ORDERED: Milk Of Magnesia 30 ML UDCUP PO PRN (14:07)
[2018-01-08] MEDS ORDERED: Eucerin (Mineral Oil/Petrolatum,White) 30 gm Jar TOP PRN (14:07)
[2018-01-08] MEDS ORDERED: Loratadine 10 MG TAB PO PRN (14:07)
[2018-01-08] MEDS ORDERED: Sodium Chloride 0.65% Nasal 44 ML BOT EA NARE PRN (14:07)
[2018-01-08] MEDS ORDERED: Chloraseptic Spray 180 ml Bottle PO PRN (14:07)
[2018-01-08] MEDS ORDERED: Nitroglycerin 0.4 MG TAB (25 Tab Bottle) PO PRN (14:07)
[2018-01-08] MEDS ORDERED: Acetaminophen 325 MG TAB PO PRN (14:07)
[2018-01-08] MEDS ORDERED: Loperamide HCl 2 MG CAP PO PRN (14:07)
--- NOTE | 2018-01-08 14:33 | HP ---
PRIMARY CARE PHYSICIAN: Jo Ann Hamilton MD REASON FOR ADMISSION: [id number] myocardial infarction. HISTORY OF PRESENT ILLNESS: This is a 57-year-old female, who was recently admitted in our hospital on 01/04/2018. At that time, the patient was having increasing shortness of breath, increasing cough with sputum, and she started having high-grade fever at home. All these symptoms started day before admission on 01/04/2018, though she was not feeling well about a week before. She went to [facility] where they did a CT of the abdomen and pelvis, because she was also complaining of abdominal discomfort, which showed left lower lobe consolidation as well as gallbladder distention. Subsequently, patient had right upper quadrant ultrasound, which was normal. In the emergency room, the patient was febrile with a temperature of 102 and she was tachycardic and relatively hypotensive . She was meeting sepsis criteria. She received azithromycin and levofloxacin at [facility], and subsequently, she was transferred to our emergency room and patient was admitted to te lemetry floor. We kept in telemetry floor for 24-48 hours, because initially she was tachycardic and relatively hypo tensive. Patient was treated with cefepime and Levaquin during that admission, and upon improvement, we transferred her to the medical floor where we continued a total of 3 days of IV antibiotic therap y. Patient was clinically feeling better. She was "coughing yellowish green sputum with a tinge amount of blood dose, though she did not have any further fever while in hospital. The patient expressed he r wish to go home yesterday, because she wanted to attend graduation ceremony. Afterward, the patien t was complaining of left arm pain and she had nausea and vomiting. We decided to keep her here in h ospital, but patient changed her mind and she wanted to go home. She has extensive history of smoking and she has chronic respiratory failure and she is using oxygen at home. Patient never had any chest pain at home. She did not smoke after discharge and patient wa s also having some diarrhea today. Patient is feeling weak. She reports that she is not feeling bet ter for many days. Today, in the emergency room, she was afebrile, tachycardic, hypertensive, and sa turating 91% on 2 liter oxygen. Her EKG was showing nonspecific ST-T changes, but when they did her cardiac enzyme, active cardiac enzyme was significantly abnormal. The patient does report that she still gets a tinge amount of blood in the sputum and she also notice d some blood in stool. She denies any vomiting of blood. She denies any palpitation, dizziness, or syncope. ALLERGIES: PENICILLIN, SOLU-MEDROL, ZOFRAN. PAST MEDICAL HISTORY: COPD, chronic respiratory failure, tobacco abuse disorder, recent admission fo r left lower lobe consolidation. PAST PSYCHIATRIC HISTORY: Anxiety and depression. PAST SURGICAL HISTORY: . SOCIAL HISTORY: Patient is smoking about 1 pack per day. She is and lives with her . No history of alcohol abuse. She denies any other illicit drug abuse. CURRENT HOME MEDICATIONS: Ranitidine 150 mg p.o. twice daily, Cymbalta 60 mg daily, Singulair 10 mg p.o. daily, Incruse Ellipta inhalation daily, Breo Ellipta inhalation daily. Patient was given a pre scription for levofloxacin 750 mg p.o. daily during previous admission, Florastor 250 mg was also pre scribed during previous admission, the patient is taking Celebrex 200 mg p.o. daily, Mucinex 600 mg t wice daily, Paxil 40 mg p.o. daily. EMERGENCY ROOM COURSE: The patient has received Lovenox 1 mg per kg, aspirin 325 mg given, Zofran 4 mg given, IV fluid given, DuoNeb therapy given. FAMILY HISTORY: No strong family history of premature coronary artery disease, stroke, or cancer. REVIEW OF SYSTEMS: The following complete review of systems was negative, unless otherwise mentioned in the HPI or below: Constitutional: Weight loss or gain, ability to conduct usual activities. Sk in: Rash, itching. Eyes: Double vision, pain. ENT/Mouth: Nose bleeding, neck stiffness, pain, te nderness. Cardiovascular: Palpitations, dyspnea on exertion, orthopnea. Respiratory: Shortness of breath, wheezing, cough, hemoptysis, fever, or night sweats. Gastrointestinal: Poor appetite, abdo liz pain, heartburn, nausea, vomiting, constipation, or diarrhea. Genitourinary: Urgency, frequen cy, dysuria, nocturia. Musculoskeletal: Pain, swelling. Neurologic/Psychiatric: Anxiety, depressi on. Allergy/Immunologic: Skin rash, bleeding tendency. Please see my HPI for pertinent positive an d negative. All other review of system reviewed and negative except as mentioned in the HPI. PHYSICAL EXAMINATION: VITAL SIGNS: Currently, blood pressure 151/85, pulse 117, respiratory rate 18, temperature 98.5, sat uration 91% on 2 liter oxygen, weight 45.3 kilograms. GENERAL: Patient is currently in pain, lethargic, ill appearing. HEENT: Head: Normocephalic, atraumatic. Eyes: Pupils round and reactive to light. Extraocular mu scle intact. ENT: Oropharynx within normal limits. Moist mucous membranes. No oral lesion, no pha ryngeal erythema, no exudate. NECK: Supple, no JVD, no thyromegaly, no carotid bruit. LUNGS: Bilateral reduced air entry at bases, few scattered rales noted. CARDIAC: S1 and S2, regular, tachycardia, no murmur, no gallop, no rub. ABDOMEN: Patient does have generalized discomfort on palpation, but no peritoneal sign, though whene gretel I am touching her abdomen she reports pain all over. BACK EXAMINATION: Unremarkable, no CVA tenderness. EXTREMITIES: Upper extremities, passive movement of all joints are normal. Lower extremities, no ed maría. Good peripheral pulsation. SKIN: No skin rash. HEMATOLOGICAL SYSTEM: No lymphadenopathy. PSYCHIATRIC: Normal affect. NEUROLOGIC: The patient is alert and oriented x3. Cranial nerves II-XII intact. Motor and sensatio n within normal limits. No focal neurological deficit noted. SIGNIFICANT LABORATORY DATA: EKG showing sinus tachycardia, nonspecific ST-T changes in anterior malou ds. Repeat EKG also showing nonspecific ST-T changes in anterior leads. Chest x-ray showing progres sive bilateral pleural effusion, persistent left lower lobe pneumonia. CBC: WBC 9.7, hemoglobin 12. 9, platelet 291 with bandemia. BMP: Sodium 134, potassium 3.4, chloride 98, carbon dioxide 24, anio n gap 15, BUN less than 4, creatinine 0.54, glucose 98, calcium 8.5. Lactic acid 1.3. LFT: AST 49, ALT 19, alkaline phosphatase 90, albumin 3.3, CK-MB 18.3, troponin 8.396. ASSESSMENT AND PLAN: 1. Acute on chronic respiratory failure with hypoxia. We will check BNP. Patient has bilateral ple ural effusion. She has persistent left lower lobe pneumonia. We will consult tax compliance manager. We apurva l continue oxygen to keep saturation above 92%. 2. Ice-MC-htaclsnwp myocardial infarction. The patient does not have any chest pain, but she has no nspecific ST-T changes on EKG. Cardiology will be consulted. The patient has already received Loven ox 1 mg per kg in the emergency room. Aspirin already received. We will continue aspirin on a daily basis. Lovenox 1 mg per kg subcutaneously twice daily. Echocardiography will be obtained. We will check lipid profile for risk stratification and start Lipitor 40 mg p.o. at bedtime. If blood press ure permits, then we will consider doing nitroglycerin patch. Otherwise, nitroglycerin on p.r.n. bas is. We will do serial cardiac enzymes x3 to see the trend of troponin. 3. Left lower lobe consolidation and pneumonia, persistent. The patient was given cefepime and Leva chucho during previous admission, but at this point the pneumonia has not responded very well. Pulmona ry will be consulted. We will continue Mucinex 600 mg twice daily and we will treat with vancomycin and levofloxacin, DuoNeb therapy q.6 hourly. 4. Protein-calorie malnutrition, moderate. Patient will be given nutritional supplement with Ensure t.i.d. 5. Mild hyponatremia and hypokalemia. Patient will be given potassium chloride 40 mEq p.o. one-time dose and we will check magnesium and phosphorus level tomorrow. 6. Tobacco abuse disorder. Smoking cessation counseling given. Healthy lifestyle measures discusse d with the patient. 7. Bandemia, likely related with a [id number] myocardial infarction and pneumonia. We will re peat CBC tomorrow. 8. Hypoalbuminemia, related with protein-calorie malnutrition. The patient will be given nutritiona l supplementation while in hospital. 9. Deep venous thrombosis prophylaxis. Patient is already on full dose of Lovenox therapy. 10. Gastrointestinal prophylaxis. Pepcid 20 mg IV b.i.d. 11. Code status: The patient is FULL CODE. Patient's is surrogate decision maker. Disposition plan based on clinical course. We are expecting patient's stay in hospital more than 2 m idnights. Plan of care discussed with the patient in detail.
[2018-01-08] MEDS: Vancomycin HCl 1 GM in Premix Bag 1 BAG IVPB SCH (15:27)
[2018-01-08] MEDS: guaiFENesin ER 600 MG TAB PO SCH ×2 (15:28→20:51)
[2018-01-08 16:32] LABS: Magnesium 1.1 mg/dL (1.6-2.6); Phosphorus 2.6 mg/dL (2.3-4.7)
[2018-01-08 16:37] LABS: Bilirubin Negative (Negative); Blood, Urine Trace (Negative); Clarity CLEAR (Clear); Glucose, Urine (Dipstick) Negative (Negative); Leukocyte Negative (Negative); Nitrite Negative (Negative); Protein, Urine (Dipstick) Negative (Neg-Trace); Specific Gravity, Urine 1.009 (1.002-1.036); Urobilinogen 0.2 mg/dL (0.2-1.0); pH, Urine 6.5 (5.0-9.0)
[2018-01-08 16:40] LABS: Bacteria/HPF None Seen HPF (None Seen); Hyaline Casts/LPF 0-3 HYALINE CAST LPF (0-3 Hyaline); Pathc Cast-AUWi Flag 0.14 (0-2.49); RBC/HPF 0-3 HPF (0-3); Squamous Epithelial 0-3 HPF (0-3); WBC/HPF 0-3 HPF (0-3)
[2018-01-08 16:45] LABS: Critical Call Chem Troponin I RESULT DECREASING; Troponin I 8.092 ng/mL (< 0.028)
[2018-01-08] MEDS: Mometasone/Formoterol 120 PUFF INHALER INH SCH (18:33)
--- NOTE | 2018-01-08 19:34 | CON ---
DATE OF CONSULTATION: 01/08/2018 REASON FOR CONSULTATION: Non-STEMI. HISTORY OF PRESENT ILLNESS: Mrs. Villalpando is a pleasant 57-year-old white female who comes to the [facility] for increased shortness of breath. She was admitted to the hospital just a few days ago. She wa s diagnosed with a fever and left lower lobe pneumonia. Her temperature was up to 102. She was star reinaldo on antibiotics and she felt better. She eventually was discharged home as she had her son's grad uation from high school Wednesday evening. She had to come back and she started to develop worsening shortness of breath and was brought in. She had troponins drawn, which were not drawn in her last ad mission and they were elevated at 8, so Cardiology has been consulted for this. She denies any chest pain, tightness or pressures, just shortness of breath. PAST MEDICAL HISTORY: 1. COPD. 2. Chronic respiratory insufficiency. 3. Tobacco abuse. 4. Recent left lower lobe pneumonia. 5. Anxiety depression. PAST SURGICAL HISTORY: . SOCIAL HISTORY: Smokes a pack a day. , lives with her . No alcohol or drug use. OUTPATIENT MEDICATIONS: Include, 1. Ranitidine. 2. Cymbalta. 3. Singulair. 4. Breo Ellipta. 5. Levofloxacin for recent pneumonia. 6. Florastor. 7. Celebrex. 8. Mucinex. 9. Paxil. FAMILY HISTORY: Noncontributory. REVIEW OF SYSTEMS: A 12-point review of systems was done and is all negative unless stated in the hi story of present illness. ALLERGIES: METHYLPREDNISOLONE, ONDANSETRON, PENICILLIN. PHYSICAL EXAMINATION: VITAL SIGNS: Temperature 98.7, pulse 100, respiration rate 19, satting 93% on 2 liters nasal cannula , blood pressure 116/63. GENERAL: Awake, alert, oriented x3, in no distress. HEENT: Normocephalic, atraumatic. NECK: Supple with JVD at about 14 cm of water. LUNGS: Have reduced breath sounds bilaterally with mild crackles bilateral. CARDIOVASCULAR: S1, S2, no S3, distant heart sounds. ABDOMEN: Soft, positive bowel sounds. EXTREMITIES: No edema. SKIN: Warm and dry. LABORATORY WORK: Reviewed. CBC: Normal white count, normal hemoglobin and platelet count. Manager Progressive Care ry with a sodium 134, potassium was 3.4, chloride 98, carbon dioxide 25, anion gap of 15, BUN of less than 4, creatinine 0.54, GFR greater than 90. Lactic acid was 1. Magnesium was 1.1, AST was 49. T roponin initially was 8.3, up to 9.4 and down to 8.0. BNP was 1436. Albumin of 3.3. EKG was reviewed. Chest x-ray reviewed showed bilateral pleural effusions and left lower lobe pneumo riaz. ASSESSMENT AND PLAN: 1. Non-ST elevation myocardial infarction: Most likely the troponin elevation that were seen is a r emnant of whatever troponin elevation had happened during her recent pneumonia admission. I would fa vor this being demand ischemia; however, the level was so high that it be whose us to check for coron kaleb disease. She does have significant risk factors for coronary disease and her smoking history. Lamonte rodriguez will plan on doing a heart catheterization Wednesday. We spoke at length about the risks and benefits of the procedure. Risks including, but not limited to stroke, [place], , bleeding, need for blood t ransfusion, limb loss, organ loss, need for emergency vascular repair and she verbalized understandin g of this and agrees to proceed. Further recommendations results of a heart catheterization. 2. Elevated BNP: Most likely, she is in congestive heart failure. I would not be surprised if her EF is reduced. Echocardiogram is pending. I would continue IV Lasix for now. 3. Left lower lobe pneumonia, on antibiotics. Thank you for allowing us to participate in the care of your patent. We will follow.
[2018-01-08] MEDS: Enoxaparin Sodium 60 MG/0.6 ML SYRINGE SC SCH (20:50)
[2018-01-08] MEDS: Atorvastatin Calcium 40 MG TAB PO SCH (20:50)
[2018-01-08] MEDS: Montelukast Sodium 10 mg Tablet PO SCH (20:50)
[2018-01-08] MEDS: Famotidine/PF 20 mg/2ml Vial SLOW IVP SCH (20:51)
[2018-01-08] MEDS ORDERED: Melatonin 3 MG TAB PO SCH (21:30)
[2018-01-09] MEDS: Vancomycin HCl 1 GM in Premix Bag 1 BAG IVPB SCH ×2 (03:33→15:01)
[2018-01-09 04:54] LABS: ALT (SGPT) 15 U/L (8-55); AST (SGOT) 24 U/L (5-34); Albumin 2.9 g/dL (3.5-5.0); Alkaline Phosphatase 73 U/L (40-150); Anion Gap 13 mmol/L (10-20); BUN (Urea Nitrogen) 4 mg/dL (9.8-20.1); Bilirubin, Total 0.6 mg/dL (0.2-1.2); Calc. Creatinine Clearance 93 mL/min (70-130); Calcium 8.2 mg/dL (7.8-10.44); Carbon Dioxide 28 mmol/L (22-29); Cardiac Risk 7.5 (Less than 4.5); Chloride 99 mmol/L (98-107); Cholesterol 157 mg/dl (< 200 Desired); Estimated GFR-MDRD Greater than 90; Globulin 2.4 g/dL (2.4-3.5); Glucose 104 mg/dL (70-105); HDL Cholesterol 21 mg/dL (>60 Neg Risk); LDL Cholesterol, Calculated 109 mg/dL; Protein, Total 5.3 g/dL (6.0-8.3); Sodium 137 mmol/L (136-145); Triglycerides 134 mg/dL (Less than 150)
[2018-01-09 05:00] LABS: Potassium 2.6 mmol/L (3.5-5.1)
[2018-01-09 06:04] LABS: Band 3 % (5-11); Eosinophils 1 % (0-10); Hemoglobin 11.7 g/dL (12.0-16.0); Lymphocytes 20 % (21-51); MDiff Complete? YES; Mean Corpuscular HGB CONC 34.2 g/dL (32.0-36.0); Mean Corpuscular Hemoglobin 32.7 pg (27.0-31.0); Mean Corpuscular Volume 95.8 fl (81.0-99.0); Mean Platelet Volume 6.8 fL (7.4-10.4); Metamyelocyte 1 % (0-0); Monocytes 21 % (0-10); Myelocyte 1 % (0-0); Neutrophil 47 % (42-75); PLT Morphology Comment Appears Adequate; Platelet Count 292 thou/uL (130-400); RBC Distribution Width 11.8 % (11.5-14.5); RBC Morphology Normal; Reactive Lymphocytes 6 % (0-10); Red Blood Cell (RBC) Count 3.57 mill/uL (4.20-5.40); White Blood Cell (WBC) Count 8.4 thou/uL (4.8-10.8)
[2018-01-09] MEDS: Potassium Chloride 20 MEQ TAB PO SCH ×6 (06:11→20:59)
[2018-01-09] MEDS: Mometasone/Formoterol 120 PUFF INHALER INH SCH ×2 (07:45→18:43)
[2018-01-09] MEDS ORDERED: Non-Formulary Item 1 EACH (Umeclidinium Bromide [Incruse Ellipta] 1 PUFF) IH SCH (09:00)
[2018-01-09] MEDS: Saccharomyces boulardii 250 MG CAP PO SCH (09:10)
[2018-01-09] MEDS: guaiFENesin ER 600 MG TAB PO SCH ×3 (09:10→20:59)
[2018-01-09] MEDS: PARoxetine 20 MG TAB PO SCH ×2 (09:10→09:13)
[2018-01-09] MEDS: DULoxetine 60 MG CAP PO SCH (09:10)
[2018-01-09] MEDS: Aspirin 325 MG TAB PO SCH (09:10)
[2018-01-09] MEDS: Enoxaparin Sodium 60 MG/0.6 ML SYRINGE SC SCH ×2 (09:11→21:00)
[2018-01-09] MEDS ORDERED: Magnesium Sulfate 4 GM in Sodium Chloride 0.9% 250 ML 250 ML IVPB SCH (10:00)
--- NOTE | 2018-01-09 12:47 | PDOC.CTH ---
Cardiology Progress Note - Subjective DOing well. No chest pain. Cough persists. - Objective Vital Signs Temp Pulse Resp BP Pulse Ox 01/09/18 11:19 98.7 F 100 18 129/67 99 01/09/18 10:40 101 H 21 H 93 L 01/09/18 08:01 98.4 F 93 16 100 01/09/18 07:47 97 01/09/18 07:43 95 15 98 01/09/18 07:20 98.4 F 93 16 124/61 100 01/09/18 03:53 98.0 F 84 18 121/68 99 Weight 101 lb 14.4 oz 01/08/18 01/09/18 01/10/18 06:59 06:59 06:59 Intake Total 985 Output Total 1260 300 Balance -275 -300 - Physical Examination General/Neuro: alert & oriented x3, NAD Neck: no JVD present Lungs: unlabored respirations Heart: RRR Abdomen: NT/ND Extremities: other: (no edema.) - Telemetry Telemetry Rhythm: NSR - Labs Result Diagrams: 01/09/18 03:43 01/09/18 03:43 Troponin/CKMB CK-MB (CK-2) 18.3 ng/mL (0-6.6) H* 01/08/18 10:12 Troponin I 8.092 ng/mL (< 0.028) H* 01/08/18 16:11 - Assessment/Plan 1. NSTEMI 2. Pnuemonia 3. New onset ZCM EF at 40-45% with septal hypokineiss. 4. Tobacco use 5. COPD 6. Hypokalemia PLAN: - Will plan on doing [facility] tomorrow. - Replace Niurka
[2018-01-09] MEDS: ALPRAZolam 0.25 MG TAB PO PRN ×2 (13:44→20:59)
[2018-01-09 14:13] LABS: Potassium 3.9 mmol/L (3.5-5.1)
[2018-01-09] MEDS: Famotidine/PF 20 mg/2ml Vial SLOW IVP SCH ×2 (17:44→21:00)
[2018-01-09] MEDS: Budesonide 0.5 MG/2 ML NEB INH SCH (18:43)
[2018-01-09] MEDS ORDERED: Communication Order-Pharmacy FS SCH (18:45)
[2018-01-09] MEDS: Atorvastatin Calcium 40 MG TAB PO SCH (20:59)
[2018-01-09] MEDS: Montelukast Sodium 10 mg Tablet PO SCH (20:59)
[2018-01-10 02:18] LABS: Prothrombin Time 13.4 SEC (12.0-14.7)
[2018-01-10 02:30] LABS: Vancomycin, Trough 8.9 ug/mL
[2018-01-10] MEDS: Vancomycin HCl 1.5 GM in Sodium Chloride 0.9% 250 ML 300 ML IVPB SCH ×2 (03:11→14:59)
--- NOTE | 2018-01-10 03:26 | CON ---
DATE OF CONSULTATION: 01/09/2018 HISTORY OF PRESENT ILLNESS: Ms. Villalpando is a 57-year-old female who recently was hospitalized with tila moore. She was readmitted basically with complaints of just "feeling bad all over." She had an abnormal troponin and has been admitted to the Intermediate Care Unit. I reviewed her chest radiograph, she has a right pleural effusion and improvement of the infiltrate t hat she has. She also has borderline cardiomegaly. She has been readmitted for workup of her above complaints. PAST MEDICAL HISTORY: Remarkable for, 1. COPD. She sees Dr. Silva at the [facility]. 2. History of pneumonia, hospitalized here recently. 3. History of anxiety and depression. 4. History of . 5. Ongoing tobacco use, a pack a day. She is not a drinker. She does not use drugs. FAMILY HISTORY: Negative for lung disease in early age. MEDICATIONS PRIOR TO ADMISSION: She is on Zantac, Cymbalta, Singulair, , Mucinex, Celebrex and Paxil. REVIEW OF SYSTEMS: Ten points otherwise negative. PHYSICAL EXAMINATION: GENERAL: She is in no distress. She is lying flat in bed. VITAL SIGNS: She is afebrile, heart rate is 100, respiratory rate is 18, oximetry is 99, blood press ure 129/67. HEENT: Pupils equal. Sclerae is anicteric. NECK: Supple. LUNGS: Clear. HEART: Regular rhythm. S1 and S2 are normal. ABDOMEN: Soft and nontender. EXTREMITIES: No clubbing, cyanosis, or edema. LABORATORY DATA: White count 8.4, hemoglobin 11.7, platelets 292. Sodium 137, potassium 2.6, chlori de 99, bicarbonate 28, BUN 4, creatinine 0.49, glucose 104. Troponin was 9 yesterday, 8 today. BNP is 1436. IMPRESSION: I suspect coronary artery disease with cardiomyopathy. She is tentatively on the schedule for heart catheterization tomorrow. Her chronic obstructive pulmo nary disease should be quantitated at some point. the formulary here, so she will be treated with nebulizer treatments during the day and budeson vaibhav twice a day. This is a 50-minute consult and greater than 50% of the time was spent in the unit coordinating care.
[2018-01-10] MEDS: PARoxetine 20 MG TAB PO SCH (05:57)
[2018-01-10] MEDS: Famotidine/PF 20 mg/2ml Vial SLOW IVP SCH ×2 (05:58→20:18)
[2018-01-10] MEDS: guaiFENesin ER 600 MG TAB PO SCH ×3 (05:58→20:17)
[2018-01-10] MEDS: Aspirin 325 MG TAB PO SCH (05:58)
[2018-01-10] MEDS: DULoxetine 60 MG CAP PO SCH (05:58)
[2018-01-10] MEDS: Saccharomyces boulardii 250 MG CAP PO SCH (05:58)
[2018-01-10] MEDS ORDERED: Sodium Chloride 0.9% 1,000 ML IV SCH ×2 (06:00→12:00)
[2018-01-10] MEDS: Budesonide 0.5 MG/2 ML NEB INH SCH ×2 (07:12→21:03)
[2018-01-10] MEDS: Mometasone/Formoterol 120 PUFF INHALER INH SCH ×2 (07:12→21:01)
[2018-01-10] MEDS ORDERED: Iopamidol 370 76% 100 ML VIAL ONE (07:26)
[2018-01-10] MEDS ORDERED: Lidocaine 1% (PF) 30 ML VIAL ONE (08:59)
[2018-01-10] MEDS ORDERED: Midazolam HCl 2 mg/2 ml Vial ONE (09:17)
[2018-01-10] MEDS ORDERED: Fentanyl 100 MCG/2 ML VIAL ONE (09:17)
--- NOTE | 2018-01-10 11:30 | PRG ---
DATE OF SERVICE: 01/10/2018 Ms. Villalpando underwent cardiac catheterization today. I am told that she had clean coronaries. PHYSICAL EXAMINATION: VITAL SIGNS: Vital signs are stable. Heart rate is 88 this morning. She is afebrile, respiratory r ate is 18, oximetry is 96. Blood pressure 107/70. LUNGS: Clear. HEART: Regular rhythm. ABDOMEN: Soft. IMPRESSION: 1. Recent pneumonia. 2. Chronic obstructive pulmonary disease, clinically stable with ongoing tobacco use up until this a dmission. 3. Anxiety and depression. 4. Systolic cardiomyopathy. She can be transferred out of the Intermediate Care Unit once she is cleared from cardiac catheteriza tion standpoint. She will resume her home obstructive lung disease meds. She was given counseling a bout smoking cessation. We will sign off.
[2018-01-10] MEDS ORDERED: traMADol HCl 50 MG TAB PO PRN (11:52)
[2018-01-10] MEDS ORDERED: Acetaminophen/Codeine 30-300mg Tablet PO PRN (11:52)
[2018-01-10] MEDS: ALPRAZolam 0.25 MG TAB PO PRN (20:17)
[2018-01-10] MEDS: Montelukast Sodium 10 mg Tablet PO SCH (20:17)
[2018-01-10] MEDS: Atorvastatin Calcium 40 MG TAB PO SCH (20:17)
[2018-01-11] MEDS: Vancomycin HCl 1.5 GM in Sodium Chloride 0.9% 250 ML 300 ML IVPB SCH (02:33)
[2018-01-11] MEDS: Mometasone/Formoterol 120 PUFF INHALER INH SCH (06:23)
[2018-01-11] MEDS: Budesonide 0.5 MG/2 ML NEB INH SCH (06:23)
[2018-01-11 08:05] VITALS: TEMP 98.9
[2018-01-11] MEDS: ALPRAZolam 0.25 MG TAB PO PRN (08:38)
[2018-01-11] MEDS: Aspirin 325 MG TAB PO SCH (08:40)
[2018-01-11] MEDS: PARoxetine 20 MG TAB PO SCH (08:40)
[2018-01-11] MEDS: guaiFENesin ER 600 MG TAB PO SCH (08:40)
[2018-01-11] MEDS: Saccharomyces boulardii 250 MG CAP PO SCH (08:40)
[2018-01-11] MEDS: DULoxetine 60 MG CAP PO SCH (08:40)
[2018-01-11] MEDS: Famotidine/PF 20 mg/2ml Vial SLOW IVP SCH (08:43)
[2018-01-11 12:33] VITALS: BP 101/54
--- NOTE | 2018-01-11 13:06 | PDOC.CTH ---
Cardiology Progress Note - Subjective She is doing well. Feels much better. - Objective Vital Signs Temp Pulse Pulse Pulse Resp BP BP 01/11/18 11:00 98.9 F 98 16 01/11/18 08:59 103 H 109 H 99/55 L 103/52 L 01/11/18 08:00 98.9 F 94 24 H 01/11/18 07:15 98.9 F 94 24 H 01/11/18 06:25 100 14 01/11/18 05:39 01/11/18 03:52 98.7 F 108 H 16 BP Pulse Ox 01/11/18 11:00 101/54 L 97 01/11/18 08:59 01/11/18 08:00 94 L 01/11/18 07:15 102/54 L 94 L 01/11/18 06:25 01/11/18 05:39 95 01/11/18 03:52 112/55 L 93 L Weight 100 lb 1.6 oz 01/10/18 01/11/18 01/12/18 06:59 06:59 06:59 Intake Total 800 540 Output Total 750 700 Balance 50 -160 - Physical Examination General/Neuro: alert & oriented x3, NAD Neck: no JVD present Lungs: CTA, unlabored respirations Heart: RRR Abdomen: NT/ND Extremities: other: (no edema) - Telemetry Telemetry Rhythm: NSR - Labs Result Diagrams: 01/09/18 03:43 01/09/18 13:52 Troponin/CKMB CK-MB (CK-2) 18.3 ng/mL (0-6.6) H* 01/08/18 10:12 Troponin I 8.092 ng/mL (< 0.028) H* 01/08/18 16:11 - Assessment/Plan 1. NSTEMI, demand ischemia, normal cors. 2. Pnuemonia 3. Normal EF on LHC. 4. Tobacco use 5. COPD 6. Hypokalemia PLAN: - Normal coronaries. troponin elevation from demand ischemia. - No new recs form cardiac perspective.
--- NOTE | 2018-01-11 14:07 | PDOC.PN ---
- Subjective Encounter Start Date: 01/09/18 Encounter Start Time: 10:05 -: old records requested/rev Pt seen and examined, chart reviewed in its entirety, this is my first visit with this patient Admitted for fever, recent CAP, NSTEMI with trop of 8 peaked at 9 overnight, back to 8. no CP. no increased IRIS, persistent cough. no N/V/D/C, no hemoptysis all systems reveiwed and neg x as above - Objective Resuscitation Status: Resuscitation Status FULL:Full Resuscitation MAR Reviewed: Yes Vital Signs & Weight: Vital Signs (12 hours) Temp Pulse Pulse Pulse Resp BP BP 01/11/18 11:00 98.9 F 98 16 01/11/18 08:59 103 H 109 H 99/55 L 103/52 L 01/11/18 08:00 98.9 F 94 24 H 01/11/18 07:15 98.9 F 94 24 H 01/11/18 06:25 100 14 01/11/18 05:39 01/11/18 03:52 98.7 F 108 H 16 BP Pulse Ox 01/11/18 11:00 101/54 L 97 01/11/18 08:59 01/11/18 08:00 94 L 01/11/18 07:15 102/54 L 94 L 01/11/18 06:25 01/11/18 05:39 95 01/11/18 03:52 112/55 L 93 L Weight Weight 100 lb 1.6 oz I&O: 01/10/18 01/11/18 01/12/18 06:59 06:59 06:59 Intake Total 800 540 Output Total 750 700 Balance 50 -160 Result Diagrams: 01/09/18 03:43 01/09/18 13:52 Radiology Reviewed by me: Yes EKG Reviewed by me: Yes Phys Exam - Physical Examination Constitutional: NAD HEENT: PERRLA, moist MMs, sclera anicteric, oral pharynx no lesions Neck: no nodes, no JVD Respiratory: no wheezing bibasilar rales, L>R, no prolonged expiration Cardiovascular: RRR, no significant murmur, no rub Gastrointestinal: soft, non-tender, no distention, positive bowel sounds Musculoskeletal: no edema, pulses present Neurological: non-focal, normal sensation, moves all 4 limbs Lymphatic: no nodes Psychiatric: normal affect, A&O x 3 Skin: no rash, normal turgor, cap refill <2 seconds Dx/Plan (1) COPD exacerbation Code(s): J44.1 - CHRONIC OBSTRUCTIVE PULMONARY DISEASE W (ACUTE) EXACERBATION Status: Acute Comment: Nebs and steroids to continue. (2) Community acquired bacterial pneumonia Code(s): J15.9 - UNSPECIFIED BACTERIAL PNEUMONIA Status: Acute Comment: CAP , present on admit, levoflox (3) Demand ischemia Code(s): I24.8 - OTHER FORMS OF ACUTE ISCHEMIC HEART DISEASE Status: Acute Comment: dount NSTEMI, but echo showeed EF of 40-50 with septal and I-L hypokinesis. Cath in AM (4) Hypoxia Code(s): R09.02 - HYPOXEMIA Status: Acute (5) Sepsis Code(s): A41.9 - SEPSIS, UNSPECIFIED ORGANISM Status: Acute Qualifiers: Sepsis type: sepsis due to unspecified organism Qualified Code(s): A41.9 - Sepsis, unspecified organism (6) Anxiety and depression Code(s): F41.9 - ANXIETY DISORDER, UNSPECIFIED; F32.9 - MAJOR DEPRESSIVE DISORDER, SINGLE EPISODE, UNSPECIFIED Status: Chronic (7) GERD (gastroesophageal reflux disease) Code(s): K21.9 - GASTRO-ESOPHAGEAL REFLUX DISEASE WITHOUT ESOPHAGITIS Status: Chronic Qualifiers: Esophagitis presence: without esophagitis Qualified Code(s): K21.9 - Gastro -esophageal reflux disease without esophagitis (8) Tobacco abuse Code(s): Z72.0 - TOBACCO USE Status: Chronic - Plan cont current plan of care, plan discussed w/ family, continue antibiotics, respiratory therapy * .
--- NOTE | 2018-01-11 14:12 | PDOC.PN ---
- Subjective Encounter Start Date: 01/10/18 Encounter Start Time: 14:10 Pt to [facility], no CAD, normal LVEF and function. Discussed with Dr albrecht, agrees its demand ischemia form pna. No F/C, breathing better,ariadna abx and nebs Transfer to floor all systems reviewed and neg as above - Objective Resuscitation Status: Resuscitation Status FULL:Full Resuscitation MAR Reviewed: Yes Vital Signs & Weight: Vital Signs (12 hours) Temp Pulse Pulse Pulse Resp BP BP 01/11/18 11:00 98.9 F 98 16 01/11/18 08:59 103 H 109 H 99/55 L 103/52 L 01/11/18 08:00 98.9 F 94 24 H 01/11/18 07:15 98.9 F 94 24 H 01/11/18 06:25 100 14 01/11/18 05:39 01/11/18 03:52 98.7 F 108 H 16 BP Pulse Ox 01/11/18 11:00 101/54 L 97 01/11/18 08:59 01/11/18 08:00 94 L 01/11/18 07:15 102/54 L 94 L 01/11/18 06:25 01/11/18 05:39 95 01/11/18 03:52 112/55 L 93 L Weight Weight 100 lb 1.6 oz I&O: 01/10/18 01/11/18 01/12/18 06:59 06:59 06:59 Intake Total 800 540 Output Total 750 700 Balance 50 -160 Result Diagrams: 01/09/18 03:43 01/09/18 13:52 Radiology Reviewed by me: Yes EKG Reviewed by me: Yes Phys Exam - Physical Examination Constitutional: NAD HEENT: PERRLA, moist MMs, sclera anicteric, oral pharynx no lesions Neck: no nodes, no JVD, supple, full ROM Respiratory: no wheezing, no rales, no rhonchi, clear to auscultation bilateral Cardiovascular: RRR, no significant murmur, no rub Gastrointestinal: soft, non-tender, no distention, positive bowel sounds Musculoskeletal: no edema, pulses present Neurological: non-focal, normal sensation, moves all 4 limbs Lymphatic: no nodes Psychiatric: normal affect, A&O x 3 Skin: no rash, normal turgor, cap refill <2 seconds Dx/Plan (1) COPD exacerbation Code(s): J44.1 - CHRONIC OBSTRUCTIVE PULMONARY DISEASE W (ACUTE) EXACERBATION Status: Acute Comment: Nebs and steroids to continue. (2) Community acquired bacterial pneumonia Code(s): J15.9 - UNSPECIFIED BACTERIAL PNEUMONIA Status: Acute Comment: CAP , present on admit, levoflox (3) Demand ischemia Code(s): I24.8 - OTHER FORMS OF ACUTE ISCHEMIC HEART DISEASE Status: Acute Comment: Cath normal, no CAD. demand ischemia confirmed (4) Hypoxia Code(s): R09.02 - HYPOXEMIA Status: Resolved (5) Sepsis Code(s): A41.9 - SEPSIS, UNSPECIFIED ORGANISM Status: Acute Qualifiers: Sepsis type: sepsis due to unspecified organism Qualified Code(s): A41.9 - Sepsis, unspecified organism (6) Anxiety and depression Code(s): F41.9 - ANXIETY DISORDER, UNSPECIFIED; F32.9 - MAJOR DEPRESSIVE DISORDER, SINGLE EPISODE, UNSPECIFIED Status: Chronic (7) GERD (gastroesophageal reflux disease) Code(s): K21.9 - GASTRO-ESOPHAGEAL REFLUX DISEASE WITHOUT ESOPHAGITIS Status: Chronic Qualifiers: Esophagitis presence: without esophagitis Qualified Code(s): K21.9 - Gastro -esophageal reflux disease without esophagitis (8) Tobacco abuse Code(s): Z72.0 - TOBACCO USE Status: Chronic - Plan cont current plan of care, plan discussed w/ family, continue antibiotics, PT/OT , respiratory therapy, out of bed/ambulate * .
--- NOTE | 2018-01-11 14:42 | DIS ---
DATE OF ADMISSION: 01/08/2018 DATE OF DISCHARGE: 01/11/2018 PRIMARY CARE PHYSICIAN: Listed as Jo Ann Hamilton MD DISCHARGE DIAGNOSES: 1. Community-acquired pneumonia. 2. Demand ischemia, non-ST elevation myocardial infarction has been ruled out. 3. Normal cardiac function, no evidence of congestive heart failure, systolic or diastolic. 4. Tobacco abuse, ongoing. 5. Chronic obstructive pulmonary disease with acute exacerbation. 6. Chronic hypercapnic respiratory failure. CONSULTATIONS: 1. Cardiology, Dr. Ck Mike. 2. Pulmonary Critical Care, Dr. Bill Giron. PROCEDURES: 1. Echocardiogram 01/08/2018 showed EF of 40%-45% and septal and inferior lateral wall hypokinesis a nd grade 1-3 diastolic dysfunction. 2. Left heart catheterization 01/08/2018 showed EF normal at 50%, no regional wall abnormalities and no coronary artery disease. No evidence of diastolic dysfunction. HISTORY AND PHYSICAL: Ms. Villalpando is a 57-year-old female, recently admitted here for left lower lobe community-acquired pneumonia. She was admitted 01/04/2018 with temperature of 102 and was subsequent ly treated for community-acquired pneumonia and discharged on Levaquin. She was on telemetry for 24- 48 hours because of tachycardic and relative hypotension, improved and was sent home after 3 days of antibiotics. She returned back to the emergency department on the day of admission and was clinicall y feeling better. She was continuing to cough up yellowish and green sputum at home with a small juan m unt of blood tinging. No further fevers. She presented back to Emergency Department the day after h er discharge for weakness. She was also having some diarrhea, satting 91%, but requiring [address]-T changes. Workup further in the Emergency Department revealed a troponin of 8 and we were subsequently called f or admit. HOSPITAL COURSE: The patient was seen and examined by Dr. Garcia. BNP was ordered and she was note d to have a persistent left lower lobe pneumonia on chest x-ray. Pulmonary was consulted. Due to th e elevated troponin, Cardiology was consulted, though the patient had no other symptoms. Overnight 01/08/2018 to 01/09/2018, the patient was clinically starting to improve. She was still tadeo ving quite a bit of cough, but had no chest pain. Echocardiogram was done that showed septal and inf erior lateral wall hypokinesis and EF of 40%-45%. I also was concerned for the coronary artery disea se, so the patient was prepped for heart catheterization in the morning. She was continued on antibi otics. Labs have normalized. She was starting to feel somewhat better. By 01/10/2018, she was feeling better. She underwent left heart catheterization that showed 0% coron kaleb artery disease. She had normal LV function including systolic and diastolic function and normal valves. Discussed today at length with Dr. Mike. He felt she did not have a non-ST elevation LA, but instead was due to demand ischemia. He recommended we watch her overnight and if she was stable in the morning, could go home. The patient did well overnight until 01/11/2018. No fevers or chills. No cough or sputum production . No chest pain and no difficulty breathing. She had no arrhythmias and was stable for discharge. PHYSICAL EXAMINATION: The patient was seen and examined on the day of discharge. Discharge plan and disposition were discussed with the patient and her family [id number] at the bedside. DISCHARGE MEDICATIONS: 1. Celebrex 200 mg p.o. daily. 2. Cymbalta 60 mg daily. 3. Fluticasone/vilanterol 1 blister inhaled daily. 4. Guaifenesin ER 600 mg p.o. b.i.d. 5. DuoNeb 3 mL q.6 hours scheduled and q.2 hours p.r.n. 6. Levaquin 750 mg p.o. daily for 5 more days. 7. Singulair 10 mg p.o. at bedtime. 8. Paxil 40 mg daily. 9. Zantac 150 mg p.o. b.i.d. 10. Florastor 250 mg daily. 11. Incruse Ellipta 62.5 mg blister inhaled daily. FOLLOWUP APPOINTMENTS: 1. Primary care physician in a week. 2. Pulmonary as scheduled. 3. Dr. Mike in 2-3 weeks. DISCHARGE CONDITION: Stable. DISPOSITION: Will be discharged via private vehicle. DISCHARGE DIET: Heart healthy recommended. DISCHARGE ACTIVITY: Per cardiopulmonary limits.
[2018-01-11] MEDS ORDERED: Famotidine 20 MG TAB PO SCH (21:00)
== END 2018-01-11 13:17 | disposition home or self-care (01) | DRG 286 ==
LOC: ERS 10:02 → IMCU/EMU 13:43 → 2NO 01-10 17:50
PROVIDERS: ADMIT Internal Medicine; ATTEND Internal Medicine
PROC: 4A023N7 Measurement of Cardiac Sampling and Pressure, Left Heart, Percutaneous Approach (ICD-10-PCS; principal; 2018-01-09)
PROC: B2111ZZ Fluoroscopy of Multiple Coronary Arteries using Low Osmolar Contrast (ICD-10-PCS; 2018-01-09)
DX: I24.8 Other forms of acute ischemic heart disease (principal); J18.9 Pneumonia, unspecified organism; J96.21 Acute and chronic respiratory failure with hypoxia; J44.1 Chronic obstructive pulmonary disease with (acute) exacerbation; J96.12 Chronic respiratory failure with hypercapnia; I42.8 Other cardiomyopathies; E44.0 Moderate protein-calorie malnutrition; E87.1 Hypo-osmolality and hyponatremia; E87.6 Hypokalemia; F41.9 Anxiety disorder, unspecified; F32.9 Major depressive disorder, single episode, unspecified; K21.9 Gastro-esophageal reflux disease without esophagitis; Z71.6 Tobacco abuse counseling; D72.825 Bandemia; E88.09 Other disorders of plasma-protein metabolism, not elsewhere classified; F17.210 Nicotine dependence, cigarettes, uncomplicated
CPT/HCPCS: 36415; 71045; 80053; 80061; 80202; 81001; 82553; 83605; 83735; 83880; 84100; 84484; 85025; 85610; 87040; 87045; 87046; 87081; 87086; 87324; 87449; 87899; 93005; 93306; 93458; 94640; 94664; 94760; 96360; 96361; 96372; 99152; A4216; C1769; G8978-GP-CJ; G8979-GP-CJ; G8980-GP-CJ; G8987-GO-CI; G8988-GO-CI; G8989-GO-CI; J1644; J1650; J1956; J2001; J2250; J3010; J3370; J3475; J7050; J7620; J7626; Q0162; S0028

== ENCOUNTER 2018-01-14 12:46 | Inpatient (IN) | payer MEDICARE ==
[2018-01-14 13:38] LABS: #Basophils 0.1 thou/uL (0.0-0.2); #Eosinphils 0.1 thou/uL (0.0-0.7); #Lymphocytes 2.4 thou/uL (1.20-3.40); #Neutrophils 9.8 thou/uL (1.40-6.50); %Basophils 0.7 % (0.0-1.0); %Eosinophils 1.1 % (0.0-10.0); %Lymphocytes 17.6 % (21.0-51.0); %Monocytes 7.4 % (0.0-10.0); %Neutrophils 73.1 % (42.0-75.0); Hemoglobin 11.4 g/dL (12.0-16.0); Mean Corpuscular HGB CONC 32.9 g/dL (32.0-36.0); Mean Corpuscular Hemoglobin 31.8 pg (27.0-31.0); Mean Corpuscular Volume 96.5 fl (81.0-99.0); Mean Platelet Volume 6.4 fL (7.4-10.4); Platelet Count 643 thou/uL (130-400); RBC Distribution Width 12.1 % (11.5-14.5); Red Blood Cell (RBC) Count 3.59 mill/uL (4.20-5.40); White Blood Cell (WBC) Count 13.4 thou/uL (4.8-10.8)
--- NOTE | 2018-01-14 13:54 | RAD ---
PA AND LATERAL VIEWS CHEST: Date: 01/14/18 HISTORY: Dyspnea. FINDINGS: Comparison made with earlier exam on same date at 0938 hours. There is stable left-sided pleural parenchymal change. The heart size is stable. The right lung is cl ear. IMPRESSION: Stable exam. POS: VITOR
[2018-01-14 14:01] LABS: ALT (SGPT) 17 U/L (8-55); AST (SGOT) 26 U/L (5-34); Albumin 3.5 g/dL (3.5-5.0); Alkaline Phosphatase 72 U/L (40-150); Anion Gap 15 mmol/L (10-20); BUN (Urea Nitrogen) 9 mg/dL (9.8-20.1); Bilirubin, Total 0.4 mg/dL (0.2-1.2); Calc. Creatinine Clearance 0 mL/min (70-130); Calcium 9.4 mg/dL (7.8-10.44); Carbon Dioxide 24 mmol/L (22-29); Chloride 95 mmol/L (98-107); Estimated GFR-MDRD Greater than 90; Globulin 3.8 g/dL (2.4-3.5); Glucose 101 mg/dL (70-105); Potassium 4.7 mmol/L (3.5-5.1); Protein, Total 7.3 g/dL (6.0-8.3); Sodium 129 mmol/L (136-145)
[2018-01-14] MEDS ORDERED: Ondansetron ODT 4 MG TAB ONE (15:12)
--- NOTE | 2018-01-14 15:23 | CT ---
CT THORAX WITH IV CONTRAST: Date: 01/14/18 HISTORY: Chest pain, pleural effusion. COMPARISON: CT abdomen on 01/04/[address] thorax on 10/15/11. FINDINGS: There is a large area of consolidation at the left lung base on the prior CT abdomen. While consolida tion persists at the left lung base, there is now a moderate size loculated pleural fluid collection present. No air is seen within this collection, but empyema is a possibility. The persistent consolid ation is probably related to a combination of atelectasis and residual pneumonia at the left lung bas e. Emphysematous changes are again seen within the upper lobes bilaterally, greater in the region of the lung apices, also present on study in 2012. There is atelectasis at the right lung base, but the right lung is otherwise clear. There are filling defects seen within left lower lobe bronchi. There is a small pericardial effusion, which is larger in size compared to the CT abdomen on 01/04/18 . A 1.8 cm low density nodule is seen in the left lobe of the thyroid gland. This nodule is larger in s ize compared to CT thorax in 2012. Nonspecific, nonenlarged mediastinal lymph nodes are seen. The upper abdomen demonstrates a grossly normal CT appearance. Vascular calcifications are seen in th e thoracic, as well as upper abdominal aorta. IMPRESSION: 1. Decrease in consolidation at the left lung base, but consolidation does persist at the left lung base and may be related to postobstructive pneumonitis and/or atelectasis. There are filling defects seen within the left lower lobe bronchi, which may be related to debris/mucus plugging. 2. Interval development of a moderate sized left pleural fluid collection. No gas is seen within thi s collection to definitely suggest empyema, although this is a differential consideration. 3. Small pericardial effusion, which has enlarged from the CT abdomen on 01/04/18. 4. Small, subcentimeter, difficult to characterize hypodense lesions in the left kidney, better visu alized on CT abdomen on 01/04/18, statistically likely representing cysts. 5. Hypodense nodule left lobe of thyroid gland. This has enlarged since the study in 2011. Nonemerge nt thyroid ultrasound is recommended. 6. COPD. POS: VITOR
[2018-01-14] MEDS ORDERED: ISOVUE-370 76%-LOCM 1 ML ONE (16:32)
[2018-01-14] MEDS ORDERED: Cefepime 2 GM in Sodium Chloride 0.9% 100 ML IVPB ONE (17:30)
[2018-01-14 18:33] VITALS: BMI 19.0
[2018-01-14] MEDS ORDERED: Ondansetron ODT 4 MG TAB PO PRN (19:21)
[2018-01-14] MEDS ORDERED: Lorazepam 2 MG/ML VIAL SLOW IVP PRN (19:21)
[2018-01-14] MEDS ORDERED: Temazepam 15 MG CAP PO PRN (19:21)
[2018-01-14] MEDS ORDERED: Lorazepam 0.5 MG TAB PO PRN (19:21)
[2018-01-14] MEDS ORDERED: Mag-Al 1200 mg/1200 mg/30 ML UDCUP PO PRN (19:21)
[2018-01-14] MEDS ORDERED: Benzonatate 100 MG CAP PO PRN (19:21)
[2018-01-14] MEDS: Sodium Chloride 0.9% 1,000 ML IV SCH (20:17)
[2018-01-14] MEDS ORDERED: Non-Formulary Item 1 EACH (Ranitidine Hcl [Ranitidine Hcl] 150 MG) PO SCH (21:00)
[2018-01-14] MEDS: Montelukast Sodium 10 mg Tablet PO SCH (21:42)
[2018-01-14] MEDS: Docusate 100 MG CAP PO SCH (21:43)
[2018-01-14] MEDS: Famotidine 20 MG TAB PO SCH (21:43)
[2018-01-14] MEDS: Clindamycin/D5W 600 MG in Premix Bag 1 BAG IVPB SCH (21:44)
[2018-01-14] MEDS: HYDROcodone/Acetaminophen 5/325 mg Tablet PO PRN (23:36)
--- NOTE | 2018-01-15 01:54 | HP ---
PRIMARY CARE PHYSICIAN: Dr. Jo Ann Hamilton. CHIEF COMPLAINT: Left-sided pain. HISTORY OF PRESENT ILLNESS: Ms. Villalpando is a very pleasant 57-year-old female who has a history of chr onic respiratory failure secondary to chronic obstructive pulmonary disease. She was recently discha rged from the hospital on 01/11 as a result of community-acquired pneumonia. She also was found to h ave a very small pericardial effusion, which required no specific treatment. She says that she was d oing fine until later that evening after discharge, she began having some pain in the left side of he r rib cage. She says it was hurting "really bad." On that night, she went to the emergency room for evaluation. She says that in the ER, they did some lab work and a chest x-ray and gave her some med ication for pain and changed her antibiotics some. She was given a prescription for clindamycin, add s the Levaquin. She says then the following day, she went to see her primary care physician for foll owup where she did some lab work as well as a chest x-ray and told that she needs to go to the emerge ncy room for a CT scan because she possibly had some "fluid buildup." The patient says she continues to have pain, which she describes it is constant and it is much worse when she coughs and it radiate s around the left side and into her shoulder. She says that she has also been having cough which is productive of clear sputum. She says there has been no blood in it. She also complains of decreased appetite and 8-pound weight loss in the past month. Otherwise, no significant other complaints. REVIEW OF SYSTEMS: Constitutional: She denies any fevers or chills, no night. She has had an 8-yun nd weight loss. HEENT: No headache or dizziness, no visual changes. She did complain of some thrus h earlier. No adenopathy. Pulmonary: As the history of present illness. Cardiovascular: She has the pain on the left side as previously mentioned, but no PND, no orthopnea. No lower extremity louis a. Gastrointestinal: She complains of some nausea, but no vomiting, no change in bowels, no melena or hematemesis. Genitourinary: No urinary frequency, hematuria, no hesitancy. Neurologic: No foca l weakness, numbness, no seizures. Psychiatric: No symptoms of anxiety or depression. Skin and Int egument: No skin changes. No rash. PAST MEDICAL HISTORY: Significant for chronic respiratory failure secondary to COPD as well as chron ic tobacco use and anxiety and depression. PAST SURGICAL HISTORY: She has had a in 1998 as well as eye surgery. She has had one of h er ovaries removed. ALLERGIES: PENICILLIN, SOLU-MEDROL, and ZOFRAN. FAMILY HISTORY: Significant for heart disease and cancer. SOCIAL HISTORY: She is a current smoker. She is a smoker of 1 pack a day for 30 years. She is vadim ied and she has one child and she denies any alcohol use. MEDICATIONS: Include clindamycin 300 mg q.i.d., ranitidine 50 mg twice a day, montelukast 10 mg at b edtime, duloxetine 60 mg daily, albuterol inhaler, Breo Ellipta 200 mcg daily, Incruse 62.5 inhaled d aily as well as Levaquin. PHYSICAL EXAMINATION: GENERAL: She is alert and oriented. She appears to be in no acute distress. She is a bit chronical ly ill appearing and she is thin. VITAL SIGNS: Her blood pressure was 123/69, heart rate was 97, respiratory rate of 15, and she is af ebrile. HEENT: Pupils are equal, round, and reactive. Extraocular muscles are intact. Her sclerae are anic teric. Throat: There is no erythema, no exudates. NECK: No adenopathy, no bruits. LUNGS: Clear to auscultation. However, she does have some decreased breath sounds at the bases. Th ere was no wheezing or rhonchi. CARDIOVASCULAR: She has a normal S1, S2. I did not appreciate an S3 or S4. No murmurs, clicks, or rubs. ABDOMEN: Soft, it is nontender, nondistended. Positive for bowel sounds. No rebound or guarding. EXTREMITIES: There is no clubbing, cyanosis, no edema. NEUROLOGIC: The exam is nonfocal. LABORATORY RESULTS: White blood cell count was 13.4, hemoglobin 11.4, hematocrit is 34.6, and platel et count was 643,000. Sodium 129, potassium 4.7, chloride is 95, CO2 is 24, BUN of 9, creatinine 0.6 , glucose is 101. Her natriuretic peptide was 320. ASSESSMENT AND PLAN: 1. This is a very pleasant 57-year-old female who presents with left-sided pleuritic pain. This is likely related who presents with a pleuritic chest pain. She likely has a parapneumonic effusion sec ondary to her recent pneumonia. Due to the persistence of her symptoms, we will consult Pulmonology to see whether or not this requires thoracentesis. In the meantime, we will continue clindamycin and Levaquin and we will treat her with these intravenously. 2. For her chronic obstructive pulmonary disease, this appears to be stable at this time, we will co ntinue her usual medications. She says that she has had difficulty getting controlled and her medica tions, the Breo Ellipta and Incruse have worked well. Therefore, she can use her own if these are no t carried here in the hospital. We will also have DuoNebs if needed. She will be placed on deep jasmin ous thrombosis and gastrointestinal prophylaxis and also she will get an echo to assess for potential increasing a pericardial effusion and further treatment will based on recommendations by Pulmonology .
[2018-01-15] MEDS: Clindamycin/D5W 600 MG in Premix Bag 1 BAG IVPB SCH ×4 (02:44→21:57)
[2018-01-15 05:07] LABS: #Basophils 0.1 thou/uL (0.0-0.2); #Eosinphils 0.2 thou/uL (0.0-0.7); #Lymphocytes 4.2 thou/uL (1.20-3.40); #Monocytes 1.5 thou/uL (0.11-0.59); #Neutrophils 8.8 thou/uL (1.40-6.50); %Basophils 0.7 % (0.0-1.0); %Eosinophils 1.6 % (0.0-10.0); %Lymphocytes 28.2 % (21.0-51.0); %Monocytes 10.3 % (0.0-10.0); %Neutrophils 59.1 % (42.0-75.0); Hemoglobin 11.3 g/dL (12.0-16.0); Mean Corpuscular HGB CONC 33.4 g/dL (32.0-36.0); Mean Corpuscular Hemoglobin 31.9 pg (27.0-31.0); Mean Corpuscular Volume 95.6 fl (81.0-99.0); Mean Platelet Volume 6.2 fL (7.4-10.4); Platelet Count 689 thou/uL (130-400); RBC Distribution Width 11.8 % (11.5-14.5); Red Blood Cell (RBC) Count 3.54 mill/uL (4.20-5.40); White Blood Cell (WBC) Count 14.9 thou/uL (4.8-10.8)
[2018-01-15 05:28] LABS: Anion Gap 13 mmol/L (10-20); BUN (Urea Nitrogen) 7 mg/dL (9.8-20.1); Calc. Creatinine Clearance 71 mL/min (70-130); Calcium 8.9 mg/dL (7.8-10.44); Carbon Dioxide 24 mmol/L (22-29); Chloride 96 mmol/L (98-107); Estimated GFR-MDRD Greater than 90; Glucose 93 mg/dL (70-105); Potassium 4.3 mmol/L (3.5-5.1); Sodium 129 mmol/L (136-145)
[2018-01-15] MEDS: Mometasone/Formoterol 120 PUFF INHALER INH SCH ×2 (07:28→19:05)
[2018-01-15] MEDS: DULoxetine 60 MG CAP PO SCH (08:12)
[2018-01-15] MEDS: Famotidine 20 MG TAB PO SCH ×2 (08:12→20:10)
[2018-01-15] MEDS: Docusate 100 MG CAP PO SCH ×2 (08:12→20:10)
[2018-01-15] MEDS: Enoxaparin Sodium 40 MG/0.4 ML SYRINGE SC SCH (08:12)
[2018-01-15] MEDS: Saccharomyces boulardii 250 MG CAP PO SCH (08:12)
[2018-01-15] MEDS: PARoxetine 20 MG TAB PO SCH (08:15)
[2018-01-15] MEDS ORDERED: Non-Formulary Item 1 EACH (Umeclidinium Bromide [Incruse Ellipta] 1 PUFF) IH SCH (09:00)
--- NOTE | 2018-01-15 10:16 | PDOC.PN ---
- Subjective Encounter Start Date: 01/15/18 Encounter Start Time: 10:14 Ms. Villalpando was seen today in follow-up of Pleural effusion and left sided chest pain. She says the pain is a bit better today. She denies feeling short of breath. - Objective Resuscitation Status: Resuscitation Status FULL:Full Resuscitation MAR Reviewed: Yes Vital Signs & Weight: Vital Signs (12 hours) Temp Pulse Resp BP BP Pulse Ox 01/15/18 08:20 97.5 F L 99 20 121/56 L 91 L 01/15/18 07:28 95 12 01/15/18 07:21 94 L 01/15/18 07:14 95 12 01/15/18 03:20 97.5 F L 91 17 105/53 L 94 L 01/15/18 00:00 98.3 F 111 H 20 130/60 93 L I&O: 01/14/18 01/15/18 01/16/18 06:59 06:59 06:59 Intake Total 1785 Output Total 800 Balance 985 Result Diagrams: 01/15/18 04:49 01/15/18 04:49 Phys Exam - Physical Examination HEENT: PERRLA Respiratory: no wheezing, no rales, no rhonchi decreased breath sounds on the left base Cardiovascular: RRR, no significant murmur, no rub Gastrointestinal: soft, non-tender, positive bowel sounds Musculoskeletal: no edema Dx/Plan (1) Pleural effusion Code(s): J90 - PLEURAL EFFUSION, NOT ELSEWHERE CLASSIFIED Status: Acute (2) Pneumonia, community acquired Code(s): J18.9 - PNEUMONIA, UNSPECIFIED ORGANISM Status: Acute (3) Anxiety and depression Code(s): F41.9 - ANXIETY DISORDER, UNSPECIFIED; F32.9 - MAJOR DEPRESSIVE DISORDER, SINGLE EPISODE, UNSPECIFIED Status: Chronic (4) Tobacco abuse Code(s): Z72.0 - TOBACCO USE Status: Chronic - Plan * Left Pleural Effusion- suspect this is a parapneumonic effusion- await Pulmonary Consultation * Pericardial effusion- this is small, and likely not clinically significant- will hold off on Cardiology Consult * COPD- stable * Anxiety and depression- stable .
[2018-01-15] MEDS ORDERED: Lidocaine 1% (PF) 30 ML VIAL ONE (11:21)
[2018-01-15 11:58] LABS: Body Fluid Source THORACENTESIS FLD
[2018-01-15 11:59] LABS: BF Color Yellow; Clarity Clear (Clear); Tube # 2
[2018-01-15 12:01] LABS: WBC/NonHematic-Auto 903 /cumm
[2018-01-15 12:07] LABS: Pleural Fluid, Protein 4.1 g/dL
[2018-01-15] MEDS: Sodium Chloride 0.9% 1,000 ML IV SCH (12:11)
[2018-01-15] MEDS: Acetaminophen 325 MG TAB PO PRN (12:14)
--- NOTE | 2018-01-15 12:26 | RAD ---
CHEST 1 VIEW: HISTORY: Thoracentesis. COMPARISON: 01/14/18. FINDINGS: Cardiac silhouette is magnified, enlarged, and partially obscured by left pleural fluid that has decr eased slightly since the previous exam. Loculated gas along the left lower hemithorax is consistent with recent thoracentesis and vacuum phenomenon. No pneumothorax is apparent at the apex. Slight le ftward shift of the mediastinum is consistent with atelectasis seen on recent CT. Pulmonary vasculat ure upper limits of normal. Calcification in the arterial structures. quality assurance monitor body leads overlie the chest. IMPRESSION: Interval left thoracentesis without significant pneumothorax. Other findings are stable. POS: [facility]
[2018-01-15 12:28] LABS: BF Segmented Neutrophils 81 %; Cell Count Non Hematic 9 %; Lymphocytes 10 %
[2018-01-15] MEDS: HYDROcodone/Acetaminophen 5/325 mg Tablet PO PRN ×2 (15:08→20:12)
--- NOTE | 2018-01-15 15:40 | CON ---
DATE OF CONSULTATION: 01/15/2018 HISTORY OF PRESENT ILLNESS: A 57-year-old female who was recently discharged from the hospital. She went to see her primary care physician who told her to order a chest x-ray, showed pleural effusion. CAT scan shows what appears to be maybe a loculated pleural effusion. She is having chest pain, but no fever or chills about a month ago when she was in the hospital. She did have fever. She is a smoker of pack a day for almost 30 years. Previous history of pneumonia, asthma, COPD. She is presently unemployed. PAST MEDICAL HISTORY: Pertinent for anxiety, COPD, history of abnormal ST segment elevation. PAST SURGICAL HISTORY: None recently. HOME MEDICATIONS: Include Ellipta, one puff a day, Singulair 10 a day, DuoNeb, Breo 1 puff a d ay, Cymbalta 60, and albuterol inhaler. ALLERGIES: PENICILLIN and METHYLPREDNISONE. REVIEW OF SYSTEMS: Otherwise, 10-point negative. PHYSICAL EXAMINATION: GENERAL: She appears to be in no acute distress. VITAL SIGNS: Blood pressure is 120/56. Sats are 93%, temperature 98. CHEST: Decreased breath sounds in left lung. CARDIAC: Normal S1, S2, no gallops. ABDOMEN: Soft, no mass. LABORATORY DATA: Shows white count of 14,000, H&H 11 and 33, platelet count 698. Sodium 129. BNP 3 20. IMPRESSION: 1. 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 2. Left pleural effusion, parapneumonic. 3. anxiety. performed. Otherwise, agree with present antibiotic coverage. Further recommendation after re viewing the pleural effusion. It is a consultation note of 70 minutes, 50% in direct patient care.
[2018-01-15] MEDS: Montelukast Sodium 10 mg Tablet PO SCH (20:10)
--- NOTE | 2018-01-15 20:15 | OP ---
PROCEDURE: Thoracentesis. INDICATIONS: Pleural effusion. DESCRIPTION OF PROCEDURE: After an informed consent, the left posterior thorax was cleaned with chlo rhexidine, 1% Xylocaine infiltrated into the left ninth intercostal space in the midscapular line. T he pleural cavity was entered in and initially 20 mL of turbid yellow fluid was removed. Thereafter, using an 8-Sami catheter and additional at 300 mL was removed without difficulty. The pH of the f luid was 7.33. The patient tolerated procedure well. Additional 300 mL fluid was removed and the fl uid was sent for appropriate studies including Gram stain and culture.
[2018-01-16] MEDS: Clindamycin/D5W 600 MG in Premix Bag 1 BAG IVPB SCH ×4 (02:33→22:46)
[2018-01-16] MEDS: Sodium Chloride 0.9% 1,000 ML IV SCH (05:19)
[2018-01-16] MEDS: Mometasone/Formoterol 120 PUFF INHALER INH SCH ×2 (06:51→18:59)
[2018-01-16] MEDS: PARoxetine 20 MG TAB PO SCH (09:38)
[2018-01-16] MEDS: Saccharomyces boulardii 250 MG CAP PO SCH (09:38)
[2018-01-16] MEDS: Famotidine 20 MG TAB PO SCH ×2 (09:38→21:06)
[2018-01-16] MEDS: DULoxetine 60 MG CAP PO SCH (09:38)
[2018-01-16] MEDS: Docusate 100 MG CAP PO SCH ×2 (09:38→21:07)
[2018-01-16] MEDS: HYDROcodone/Acetaminophen 5/325 mg Tablet PO PRN ×4 (09:38→21:10)
[2018-01-16] MEDS: Enoxaparin Sodium 40 MG/0.4 ML SYRINGE SC SCH (09:40)
--- NOTE | 2018-01-16 13:13 | PRG ---
DATE OF SERVICE: 01/16/2018 SUBJECTIVE: This morning, she is still having left-sided chest pain and some shortness of breath. OBJECTIVE: VITAL SIGNS: Sats are 98% on 3 liters, pulse 106, temperature 98. CHEST: Decreased breath sounds without any wheezing. CARDIAC: Normal S1, S2, no gallops. ABDOMEN: Soft. No masses. LABORATORY DATA: Protein of 4.1, LDH of 630. IMPRESSION: Right pleural effusion, parapneumonic, exudate. PLAN: Continue antibiotics, supportive care. Follow up chest x-ray. I am concerned even though the pH was normal, the fluid appears to be loculated. We will see if she gets significant pain. We will follow.
--- NOTE | 2018-01-16 16:33 | PDOC.PN ---
- Subjective Encounter Start Date: 01/16/18 Encounter Start Time: 09:15 Subjective: pt up in bed has some pain to her left chest wall - Objective Resuscitation Status: Resuscitation Status FULL:Full Resuscitation Vital Signs & Weight: Vital Signs (12 hours) Temp Pulse Resp BP Pulse Ox 01/16/18 14:00 76 16 01/16/18 12:00 98.7 F 90 20 119/56 L 96 01/16/18 08:40 98.7 F 76 16 93 L 01/16/18 08:00 99.0 F 98 22 H 130/60 93 L 01/16/18 06:51 106 H 16 01/16/18 06:47 93 L 01/16/18 06:43 106 H 16 Weight Weight 98 lb 4 oz I&O: 01/15/18 01/16/18 01/17/18 06:59 06:59 06:59 Intake Total 1785 2225 Output Total 800 2400 Balance 985 -175 Result Diagrams: 01/15/18 04:49 01/15/18 04:49 Phys Exam - Physical Examination HEENT: PERRLA, moist MMs, sclera anicteric, TM's clear, oral pharynx no lesions , 2+ tonsils Neck: no nodes, no JVD, supple, full ROM decreased breath sounds to left lower lobe Cardiovascular: RRR, no significant murmur, no rub, gallop, irregular Gastrointestinal: soft, non-tender, no distention, positive bowel sounds Dx/Plan (1) Pleural effusion Code(s): J90 - PLEURAL EFFUSION, NOT ELSEWHERE CLASSIFIED Status: Acute (2) Pneumonia, community acquired Code(s): J18.9 - PNEUMONIA, UNSPECIFIED ORGANISM Status: Acute (3) COPD exacerbation Code(s): J44.1 - CHRONIC OBSTRUCTIVE PULMONARY DISEASE W (ACUTE) EXACERBATION Status: Acute Comment: Nebs and steroids to continue. (4) Anxiety and depression Code(s): F41.9 - ANXIETY DISORDER, UNSPECIFIED; F32.9 - MAJOR DEPRESSIVE DISORDER, SINGLE EPISODE, UNSPECIFIED Status: Chronic (5) Thyroid nodule Code(s): E04.1 - NONTOXIC SINGLE THYROID NODULE Status: Acute (6) Hyponatremia Code(s): E87.1 - HYPO-OSMOLALITY AND HYPONATREMIA Status: Acute - Plan * . pt's unerwent thoracentesis on 01/15 drained 320ml. pleural fluid analysis per light's criteria is exudative. will continue clindamycin and Levaquin. will add ensure tid since she has not been eating much. tsh normal, thyroid nodule noted on ct scan. hyponatremia could be secondary to SIADH. pt states she does not take paxil which can cause hyponatrmeia. Also she can have volume overload. will check urine osmol and urine na. Review of Systems - Review of Systems ENT: negative: Ear Pain, Ear Discharge, Nose Pain, Nose Discharge, Nose Congestion, Mouth Pain, Mouth Swelling, Throat Pain, Throat Swelling, Other Respiratory: negative: Cough, Dry, Shortness of Breath, Hemoptysis, SOB with Excertion, Pleuritic Pain, Sputum, Wheezing Cardiovascular: negative: chest pain, palpitations, orthopnea, paroxysmal nocturnal dyspnea, edema, light headedness, other Gastrointestinal: negative: Nausea, Vomiting, Abdominal Pain, Diarrhea, Constipation, Melena, Hematochezia, Other Musculoskeletal: Other (left chest wall pain on palpation) - Medications/Allergies Allergies/Adverse Reactions: Allergies Allergy/AdvReac Type Severity Reaction Status Date / Time methylprednisolone sodium Allergy Verified 01/14/18 22:13 succinate [From Solu-Medrol] ondansetron HCl [From Zofran] Allergy Verified 01/14/18 23:43 Penicillins Allergy Verified 01/14/18 22:13 Medications: Current Medications Acetaminophen (Tylenol) 650 mg PO Q4H PRN PRN Reason: Headache/Fever or Pain Last Admin: 01/15/18 12:14 Dose: 650 mg Hydrocodone Bitart/Acetaminophen ([place] 5/325) 1 tab PO Q4H PRN PRN Reason: Moderate Pain (4-6) Last Admin: 01/15/18 15:08 Dose: 1 tab Hydrocodone Bitart/Acetaminophen ([place] 5/325) 2 tab PO Q4H PRN PRN Reason: Severe Pain (7-10) Last Admin: 01/16/18 14:09 Dose: 2 tab Al Hydroxide/Mg Hydroxide (Maalox) 30 ml PO Q6H PRN PRN Reason: Heartburn or Indigestion Albuterol/Ipratropium (Duoneb) 3 ml NEB [id number] PRN PRN Reason: SOB &/or Wheezing Albuterol/Ipratropium (Duoneb) 3 ml NEB [id number] [facility] Last Admin: 01/16/18 14:00 Dose: 3 ml Benzonatate (Tessalon) 100 mg PO Q4H PRN PRN Reason: Cough Docusate Sodium (Colace) 100 mg PO BID [facility] Last Admin: 01/16/18 09:38 Dose: 100 mg Duloxetine HCl (Cymbalta) 60 mg PO DAILY [facility] Last Admin: 01/16/18 09:38 Dose: 60 mg Enoxaparin Sodium (Lovenox) 40 mg SC 0900 [facility] Last Admin: 01/16/18 09:40 Dose: 40 mg Famotidine (Pepcid) 20 mg PO BID [facility] Last Admin: 01/16/18 09:38 Dose: 20 mg Clindamycin Phosphate/Dextrose (600 mg/ Device) 50 mls @ 100 mls/hr IVPB 0300, 0900,1500,2100 [facility] Last Admin: 01/16/18 14:09 Dose: 50 mls Levofloxacin 750 mg/ Device 150 mls @ 100 mls/hr IVPB Q24HR [facility] Last Admin: 01/15/18 20:10 Dose: 150 mls Lidocaine (Lidoderm 5% Patch) 1 patch TD DAILY [facility] Lorazepam (Ativan) 0.5 mg PO Q4H PRN PRN Reason: Anxiety/Agitation Last Admin: 01/14/18 21:42 Dose: 0.5 mg Lorazepam (Ativan) 0.5 mg SLOW IVP Q4H PRN PRN Reason: Anxiety/Agitation Miscellaneous Medication (Lidocaine Patch Removal) [address] [facility] Mometasone Furoate/Formoterol Fumar (Dulera 100 Mcg/5 Mcg Inhaler) 2 puff INH BID-RT [facility] Last Admin: 01/16/18 06:51 Dose: 2 puff Montelukast Sodium (Singulair) 10 mg PO HS [facility] Last Admin: 01/15/18 20:10 Dose: 10 mg Morphine Sulfate (Morphine) 2 mg SLOW IVP Q4H PRN PRN Reason: Pain 1ST LINE Morphine Sulfate (Morphine) 4 mg SLOW IVP Q4H PRN PRN Reason: Pain 2ND LINE Last Admin: 01/14/18 20:10 Dose: 4 mg Ondansetron HCl (Zofran Odt) 4 mg PO Q6H PRN PRN Reason: Nausea/Vomiting Saccharomyces Boulardii (Florastor) 250 mg PO DAILY [facility] Last Admin: 01/16/18 09:38 Dose: 250 mg Temazepam (Restoril) 15 mg PO HSPRN PRN PRN Reason: Insomnia
[2018-01-16 17:38] LABS: Osmolality, Urine 223 mOsm/kg (300-900)
[2018-01-16 17:56] LABS: Sodium, Urine 56 mmol/L (Not Available)
[2018-01-16] MEDS: Montelukast Sodium 10 mg Tablet PO SCH (21:07)
[2018-01-17] MEDS: Clindamycin/D5W 600 MG in Premix Bag 1 BAG IVPB SCH ×4 (04:04→21:31)
[2018-01-17] MEDS: HYDROcodone/Acetaminophen 5/325 mg Tablet PO PRN ×4 (04:05→18:51)
[2018-01-17] MEDS: Mometasone/Formoterol 120 PUFF INHALER INH SCH ×2 (08:09→18:50)
[2018-01-17] MEDS: Famotidine 20 MG TAB PO SCH ×2 (09:03→21:32)
[2018-01-17] MEDS: Saccharomyces boulardii 250 MG CAP PO SCH (09:03)
[2018-01-17] MEDS: Enoxaparin Sodium 40 MG/0.4 ML SYRINGE SC SCH (09:03)
[2018-01-17] MEDS: Docusate 100 MG CAP PO SCH ×2 (09:03→21:32)
[2018-01-17] MEDS: Lidocaine 5% Patch TD SCH (09:03)
[2018-01-17] MEDS: DULoxetine 60 MG CAP PO SCH (09:03)
[2018-01-17 10:12] LABS: Anion Gap 11 mmol/L (10-20); BUN (Urea Nitrogen) 5 mg/dL (9.8-20.1); Calc. Creatinine Clearance 83 mL/min (70-130); Calcium 9.2 mg/dL (7.8-10.44); Carbon Dioxide 31 mmol/L (22-29); Chloride 95 mmol/L (98-107); Estimated GFR-MDRD Greater than 90; Glucose 102 mg/dL (70-105); Sodium 133 mmol/L (136-145)
--- NOTE | 2018-01-17 10:22 | PRG ---
DATE OF SERVICE: 01/17/2018 SUBJECTIVE: The patient is still having significant left-sided chest pain, but no shortness of breat h. OBJECTIVE: VITAL SIGNS: Sats are 97% on 3 liters, temperature 99, blood pressure 119/65. CHEST: Decreased breath sounds in left base. Right lung unremarkable. CARDIAC: Normal S1, S2, no gallops. ABDOMEN: Soft, no masses. IMPRESSION: Left-sided pneumonia, parapneumonic effusion. Persistent chest pain. PLAN: Continue Levaquin, clindamycin. Follow up x-ray tomorrow. If she has significant effusion, s he may need decortication. We will follow.
[2018-01-17 11:12] LABS: Band 2 % (5-11); Eosinophils 2 % (0-10); Hemoglobin 10.3 g/dL (12.0-16.0); Lymphocytes 26 % (21-51); MDiff Complete? YES; Mean Corpuscular HGB CONC 33.4 g/dL (32.0-36.0); Mean Corpuscular Hemoglobin 32.4 pg (27.0-31.0); Mean Corpuscular Volume 96.7 fl (81.0-99.0); Mean Platelet Volume 5.8 fL (7.4-10.4); Monocytes 3 % (0-10); Neutrophil 61 % (42-75); PLT Morphology Comment Appears Increased; Platelet Count 799 thou/uL (130-400); Polychromasia SLIGHT = 2-3 cells (100X) (0-2/hpf); RBC Distribution Width 11.8 % (11.5-14.5); Reactive Lymphocytes 5 % (0-10); Red Blood Cell (RBC) Count 3.18 mill/uL (4.20-5.40); White Blood Cell (WBC) Count 9.1 thou/uL (4.8-10.8)
--- NOTE | 2018-01-17 18:19 | PDOC.PN ---
- Subjective Encounter Start Date: 01/17/18 Encounter Start Time: 11:30 Subjective: pt up in bed no complains - Objective Resuscitation Status: Resuscitation Status FULL:Full Resuscitation Vital Signs & Weight: Vital Signs (12 hours) Temp Pulse Pulse Pulse Resp BP BP 01/17/18 16:00 98.4 F 110 H 20 01/17/18 14:55 95 16 01/17/18 12:45 98.5 F 86 20 01/17/18 10:15 90 90 108/57 L 122/61 01/17/18 08:55 98.6 F 90 22 H 01/17/18 08:09 96 16 01/17/18 08:01 01/17/18 08:00 96 16 01/17/18 07:45 98.6 F 90 22 H BP Pulse Ox Pulse Ox Pulse Ox 01/17/18 16:00 133/66 90 L 01/17/18 14:55 01/17/18 12:45 114/55 L 96 01/17/18 10:15 92 L 94 L 01/17/18 08:55 120/62 92 L 01/17/18 08:09 01/17/18 08:01 97 01/17/18 08:00 01/17/18 07:45 92 L Weight Weight 98 lb 6.4 oz I&O: 01/16/18 01/17/18 01/18/18 06:59 06:59 06:59 Intake Total 2225 1625 1405 Output Total 2400 400 300 Balance -175 1225 1105 Result Diagrams: 01/17/18 09:39 01/17/18 09:39 Phys Exam - Physical Examination HEENT: PERRLA, moist MMs, sclera anicteric, TM's clear, oral pharynx no lesions , 2+ tonsils Neck: no nodes, no JVD, supple, full ROM decreased breath sound to bilateral lower lungs Cardiovascular: RRR, no significant murmur, no rub, gallop, irregular Gastrointestinal: soft, non-tender, no distention, positive bowel sounds Dx/Plan (1) Pleural effusion Code(s): J90 - PLEURAL EFFUSION, NOT ELSEWHERE CLASSIFIED Status: Acute (2) Pneumonia, community acquired Code(s): J18.9 - PNEUMONIA, UNSPECIFIED ORGANISM Status: Acute (3) COPD exacerbation Code(s): J44.1 - CHRONIC OBSTRUCTIVE PULMONARY DISEASE W (ACUTE) EXACERBATION Status: Acute Comment: Nebs and steroids to continue. (4) Anxiety and depression Code(s): F41.9 - ANXIETY DISORDER, UNSPECIFIED; F32.9 - MAJOR DEPRESSIVE DISORDER, SINGLE EPISODE, UNSPECIFIED Status: Chronic (5) Thyroid nodule Code(s): E04.1 - NONTOXIC SINGLE THYROID NODULE Status: Acute (6) Hyponatremia Code(s): E87.1 - HYPO-OSMOLALITY AND HYPONATREMIA Status: Acute - Plan * . will continue abx. xray ordered for am. Fluid indicated exudate. cx is still negative. Pt encouraged to ambulate. Review of Systems - Review of Systems ENT: negative: Ear Pain, Ear Discharge, Nose Pain, Nose Discharge, Nose Congestion, Mouth Pain, Mouth Swelling, Throat Pain, Throat Swelling, Other Respiratory: negative: Cough, Dry, Shortness of Breath, Hemoptysis, SOB with Excertion, Pleuritic Pain, Sputum, Wheezing Cardiovascular: negative: chest pain, palpitations, orthopnea, paroxysmal nocturnal dyspnea, edema, light headedness, other Gastrointestinal: negative: Nausea, Vomiting, Abdominal Pain, Diarrhea, Constipation, Melena, Hematochezia, Other - Medications/Allergies Allergies/Adverse Reactions: Allergies Allergy/AdvReac Type Severity Reaction Status Date / Time methylprednisolone sodium Allergy Verified 01/14/18 22:13 succinate [From Solu-Medrol] ondansetron HCl [From Zofran] Allergy Verified 01/14/18 23:43 Penicillins Allergy Verified 01/14/18 22:13 Medications: Current Medications Acetaminophen (Tylenol) 650 mg PO Q4H PRN PRN Reason: Headache/Fever or Pain Last Admin: 01/15/18 12:14 Dose: 650 mg Hydrocodone Bitart/Acetaminophen ([place] 5/325) 1 tab PO Q4H PRN PRN Reason: Moderate Pain (4-6) Last Admin: 01/16/18 21:10 Dose: 1 tab Hydrocodone Bitart/Acetaminophen ([place] 5/325) 2 tab PO Q4H PRN PRN Reason: Severe Pain (7-10) Last Admin: 01/17/18 14:10 Dose: 2 tab Al Hydroxide/Mg Hydroxide (Maalox) 30 ml PO Q6H PRN PRN Reason: Heartburn or Indigestion Albuterol/Ipratropium (Duoneb) 3 ml NEB [id number] PRN PRN Reason: SOB &/or Wheezing Albuterol/Ipratropium (Duoneb) 3 ml NEB [id number] [facility] Last Admin: 01/17/18 14:55 Dose: 3 ml Benzonatate (Tessalon) 100 mg PO Q4H PRN PRN Reason: Cough Docusate Sodium (Colace) 100 mg PO BID [facility] Last Admin: 01/17/18 09:03 Dose: 100 mg Duloxetine HCl (Cymbalta) 60 mg PO DAILY [facility] Last Admin: 01/17/18 09:03 Dose: 60 mg Enoxaparin Sodium (Lovenox) 40 mg SC 0900 [facility] Last Admin: 01/17/18 09:03 Dose: 40 mg Famotidine (Pepcid) 20 mg PO BID [facility] Last Admin: 01/17/18 09:03 Dose: 20 mg Clindamycin Phosphate/Dextrose (600 mg/ Device) 50 mls @ 100 mls/hr IVPB 0300, 0900,1500,2100 [facility] Last Admin: 01/17/18 14:06 Dose: 50 mls Levofloxacin 750 mg/ Device 150 mls @ 100 mls/hr IVPB Q24HR [facility] Last Admin: 01/16/18 21:05 Dose: 150 mls Lidocaine (Lidoderm 5% Patch) 1 patch TD DAILY [facility] Last Admin: 01/17/18 09:03 Dose: 1 patch Lorazepam (Ativan) 0.5 mg PO Q4H PRN PRN Reason: Anxiety/Agitation Last Admin: 01/14/18 21:42 Dose: 0.5 mg Lorazepam (Ativan) 0.5 mg SLOW IVP Q4H PRN PRN Reason: Anxiety/Agitation Miscellaneous Medication (Lidocaine Patch Removal) 1 each TOP HS [facility] Mometasone Furoate/Formoterol Fumar (Dulera 100 Mcg/5 Mcg Inhaler) 2 puff INH BID-RT [facility] Last Admin: 01/17/18 08:09 Dose: 2 puff Montelukast Sodium (Singulair) 10 mg PO HS [facility] Last Admin: 01/16/18 21:07 Dose: 10 mg Morphine Sulfate (Morphine) 2 mg SLOW IVP Q4H PRN PRN Reason: Pain 1ST LINE Morphine Sulfate (Morphine) 4 mg SLOW IVP Q4H PRN PRN Reason: Pain 2ND LINE Last Admin: 01/14/18 20:10 Dose: 4 mg Ondansetron HCl (Zofran Odt) 4 mg PO Q6H PRN PRN Reason: Nausea/Vomiting Saccharomyces Boulardii (Florastor) 250 mg PO DAILY [facility] Last Admin: 01/17/18 09:03 Dose: 250 mg Temazepam (Restoril) 15 mg PO HSPRN PRN PRN Reason: Insomnia
[2018-01-17] MEDS: Montelukast Sodium 10 mg Tablet PO SCH (21:32)
[2018-01-17] MEDS: Lidocaine Patch Removal TOP SCH (21:33)
[2018-01-18] MEDS: Clindamycin/D5W 600 MG in Premix Bag 1 BAG IVPB SCH ×4 (03:44→22:30)
[2018-01-18] MEDS: HYDROcodone/Acetaminophen 5/325 mg Tablet PO PRN ×4 (03:48→22:35)
[2018-01-18] MEDS: Mometasone/Formoterol 120 PUFF INHALER INH SCH ×2 (07:10→19:19)
--- NOTE | 2018-01-18 09:08 | RAD ---
PA AND LATERAL VIEWS CHEST: Date: 01/18/18 HISTORY: Pleural effusion. FINDINGS: Comparison made with exam of 01/15/18. The heart size is stable. Moderate size left pleural effusion is again seen. The right lung is unrema rkable. No pneumothoraces are seen. IMPRESSION: Moderate size left pleural effusion. POS: [facility]
[2018-01-18] MEDS: Enoxaparin Sodium 40 MG/0.4 ML SYRINGE SC SCH (10:15)
[2018-01-18] MEDS: DULoxetine 60 MG CAP PO SCH (10:15)
[2018-01-18] MEDS: Lidocaine 5% Patch TD SCH (10:15)
[2018-01-18] MEDS: Docusate 100 MG CAP PO SCH ×2 (10:15→20:51)
[2018-01-18] MEDS: Famotidine 20 MG TAB PO SCH ×2 (10:15→20:50)
[2018-01-18] MEDS: Saccharomyces boulardii 250 MG CAP PO SCH (10:15)
[2018-01-18] MEDS: Nystatin 500,000 UNITS/5 ML UDCUP SSW SCH ×2 (16:17→20:51)
--- NOTE | 2018-01-18 18:45 | PRG ---
DATE OF SERVICE: 01/18/2018 SUBJECTIVE: Irasema says she is feeling better. OBJECTIVE: VITAL SIGNS: On reviewing her temperature curve, she has been afebrile. LUNGS: Marked decreased breath sounds in left base. She still has intermittent pleurisy. HEART: Regular rhythm. ABDOMEN: Soft. LABORATORY DATA: Pleural fluid was reviewed. Protein was 4.1, LDH was 630, glucose was 730. PH 7.3 5. Pathology showed nothing suggestive of a malignant process, predominantly lymphocytes, and neutrophil s. Cultures of the pleural fluid preliminarily are negative. No gram negative organisms were seen on Gr am stain. IMPRESSION: Exudative pleural effusion is peripneumonic, but number criteria does not require chest tube placement or thoracoscopy. We will see what the final cultures show us and continue to follow h er. She is fairly strongly opposed to any type of surgical intervention, but will follow her on a da sukhdev basis.
[2018-01-18] MEDS: Montelukast Sodium 10 mg Tablet PO SCH (20:50)
[2018-01-18] MEDS: Lidocaine Patch Removal TOP SCH (20:52)
[2018-01-19] MEDS: Clindamycin/D5W 600 MG in Premix Bag 1 BAG IVPB SCH ×2 (03:34→10:33)
--- NOTE | 2018-01-19 06:49 | PDOC.PN ---
- Subjective Encounter Start Date: 01/18/18 Encounter Start Time: 09:15 Subjective: pt up in bed no complains - Objective Resuscitation Status: Resuscitation Status FULL:Full Resuscitation Vital Signs & Weight: Vital Signs (12 hours) Temp Pulse Resp BP Pulse Ox 01/19/18 03:44 98.1 F 93 14 110/58 L 95 01/19/18 03:37 93 L 01/19/18 00:23 92 16 01/18/18 20:40 98.1 F 97 18 123/60 92 L 01/18/18 19:06 94 16 97 Weight Weight 98 lb 8 oz I&O: 01/17/18 01/18/18 01/19/18 06:59 06:59 06:59 Intake Total 1625 2055 1980 Output Total 400 300 350 Balance 1225 1755 1630 Result Diagrams: 01/17/18 09:39 01/17/18 09:39 Phys Exam - Physical Examination mild oral thrush Neck: no nodes, no JVD, supple, full ROM decreased breath sound to LLL Cardiovascular: RRR, no significant murmur, no rub, gallop, irregular Gastrointestinal: soft, non-tender, no distention, positive bowel sounds Dx/Plan (1) Pleural effusion Code(s): J90 - PLEURAL EFFUSION, NOT ELSEWHERE CLASSIFIED Status: Acute (2) Pneumonia, community acquired Code(s): J18.9 - PNEUMONIA, UNSPECIFIED ORGANISM Status: Acute (3) COPD exacerbation Code(s): J44.1 - CHRONIC OBSTRUCTIVE PULMONARY DISEASE W (ACUTE) EXACERBATION Status: Acute Comment: Nebs and steroids to continue. (4) Anxiety and depression Code(s): F41.9 - ANXIETY DISORDER, UNSPECIFIED; F32.9 - MAJOR DEPRESSIVE DISORDER, SINGLE EPISODE, UNSPECIFIED Status: Chronic (5) Thyroid nodule Code(s): E04.1 - NONTOXIC SINGLE THYROID NODULE Status: Acute (6) Hyponatremia Code(s): E87.1 - HYPO-OSMOLALITY AND HYPONATREMIA Status: Acute - Plan * . will start pt on nystatin for thrush cxr pleural effusion appear minimal awaiting final cx Encouraged to ambulate will most likely need home oxygen Review of Systems - Review of Systems ENT: negative: Ear Pain, Ear Discharge, Nose Pain, Nose Discharge, Nose Congestion, Mouth Pain, Mouth Swelling, Throat Pain, Throat Swelling, Other Respiratory: negative: Cough, Dry, Shortness of Breath, Hemoptysis, SOB with Excertion, Pleuritic Pain, Sputum, Wheezing Cardiovascular: negative: chest pain, palpitations, orthopnea, paroxysmal nocturnal dyspnea, edema, light headedness, other Gastrointestinal: negative: Nausea, Vomiting, Abdominal Pain, Diarrhea, Constipation, Melena, Hematochezia, Other - Medications/Allergies Allergies/Adverse Reactions: Allergies Allergy/AdvReac Type Severity Reaction Status Date / Time methylprednisolone sodium Allergy Verified 01/14/18 22:13 succinate [From Solu-Medrol] ondansetron HCl [From Zofran] Allergy Verified 01/14/18 23:43 Penicillins Allergy Verified 01/14/18 22:13 Medications: Current Medications Acetaminophen (Tylenol) 650 mg PO Q4H PRN PRN Reason: Headache/Fever or Pain Last Admin: 01/15/18 12:14 Dose: 650 mg Hydrocodone Bitart/Acetaminophen ([place] 5/325) 1 tab PO Q4H PRN PRN Reason: Moderate Pain (4-6) Last Admin: 01/18/18 03:48 Dose: 1 tab Hydrocodone Bitart/Acetaminophen ([place] 5/325) 2 tab PO Q4H PRN PRN Reason: Severe Pain (7-10) Last Admin: 01/18/18 22:35 Dose: 2 tab Al Hydroxide/Mg Hydroxide (Maalox) 30 ml PO Q6H PRN PRN Reason: Heartburn or Indigestion Albuterol/Ipratropium (Duoneb) 3 ml NEB [id number] PRN PRN Reason: SOB &/or Wheezing Albuterol/Ipratropium (Duoneb) 3 ml NEB [id number] [facility] Last Admin: 01/19/18 00:23 Dose: 3 ml Benzonatate (Tessalon) 100 mg PO Q4H PRN PRN Reason: Cough Docusate Sodium (Colace) 100 mg PO BID [facility] Last Admin: 01/18/18 20:51 Dose: 100 mg Duloxetine HCl (Cymbalta) 60 mg PO DAILY [facility] Last Admin: 01/18/18 10:15 Dose: 60 mg Enoxaparin Sodium (Lovenox) 40 mg SC 0900 [facility] Last Admin: 01/18/18 10:15 Dose: 40 mg Famotidine (Pepcid) 20 mg PO BID [facility] Last Admin: 01/18/18 20:50 Dose: 20 mg Clindamycin Phosphate/Dextrose (600 mg/ Device) 50 mls @ 100 mls/hr IVPB 0300, 0900,1500,2100 [facility] Last Admin: 01/19/18 03:34 Dose: 50 mls Levofloxacin 750 mg/ Device 150 mls @ 100 mls/hr IVPB Q24HR [facility] Last Admin: 01/18/18 20:50 Dose: 150 mls Lidocaine (Lidoderm 5% Patch) 1 patch TD DAILY [facility] Last Admin: 01/18/18 10:15 Dose: 1 patch Lorazepam (Ativan) 0.5 mg PO Q4H PRN PRN Reason: Anxiety/Agitation Last Admin: 01/14/18 21:42 Dose: 0.5 mg Lorazepam (Ativan) 0.5 mg SLOW IVP Q4H PRN PRN Reason: Anxiety/Agitation Miscellaneous Medication (Lidocaine Patch Removal) 1 each TOP HS [facility] Last Admin: 01/18/18 20:52 Dose: 1 each Mometasone Furoate/Formoterol Fumar (Dulera 100 Mcg/5 Mcg Inhaler) 2 puff INH BID-RT [facility] Last Admin: 01/18/18 19:19 Dose: 2 puff Montelukast Sodium (Singulair) 10 mg PO HS [facility] Last Admin: 01/18/18 20:50 Dose: 10 mg Morphine Sulfate (Morphine) 2 mg SLOW IVP Q4H PRN PRN Reason: Pain 1ST LINE Morphine Sulfate (Morphine) 4 mg SLOW IVP Q4H PRN PRN Reason: Pain 2ND LINE Last Admin: 01/14/18 20:10 Dose: 4 mg Nystatin (Mycostatin) 500,000 units SSW QID [facility] Last Admin: 01/18/18 20:51 Dose: 500,000 units Ondansetron HCl (Zofran Odt) 4 mg PO Q6H PRN PRN Reason: Nausea/Vomiting Saccharomyces Boulardii (Florastor) 250 mg PO DAILY [facility] Last Admin: 01/18/18 10:15 Dose: 250 mg Temazepam (Restoril) 15 mg PO HSPRN PRN PRN Reason: Insomnia
[2018-01-19] MEDS: Mometasone/Formoterol 120 PUFF INHALER INH SCH ×2 (07:45→18:19)
[2018-01-19] MEDS: Docusate 100 MG CAP PO SCH ×2 (10:34→21:22)
[2018-01-19] MEDS: DULoxetine 60 MG CAP PO SCH (10:34)
[2018-01-19] MEDS: Enoxaparin Sodium 40 MG/0.4 ML SYRINGE SC SCH (10:34)
[2018-01-19] MEDS: Famotidine 20 MG TAB PO SCH ×2 (10:34→21:23)
[2018-01-19] MEDS: Lidocaine 5% Patch TD SCH (10:34)
[2018-01-19] MEDS: Saccharomyces boulardii 250 MG CAP PO SCH (10:34)
[2018-01-19] MEDS: Nystatin 500,000 UNITS/5 ML UDCUP SSW SCH ×4 (10:34→21:22)
[2018-01-19] MEDS: HYDROcodone/Acetaminophen 5/325 mg Tablet PO PRN ×2 (10:37→16:54)
--- NOTE | 2018-01-19 15:10 | PRG ---
DATE OF SERVICE: 01/19/2018 SUBJECTIVE: Ms. Villalpando is in no distress. She has had no fever. OBJECTIVE: VITAL SIGNS: Heart rate is 92, respiratory rate is 19, oximetry is 92% on 2 liters, blood pressure 1 07/64. LUNGS: Remarkable for decreased breath sounds at the left base. HEART: Regular rhythm. ABDOMEN: Soft. She is not wheezing. Pleural fluid cultures remain negative. Reviewed her CT and chest radiograph with cardiothoracic surgeons. We both feel that given the sever ity of her lung disease and given relatively benign pleural fluid characteristics, i.e., LDH, protein , glucose, pH and cultures that there is no clear indication for thoracoscopy at this point. I will follow this as an outpatient. We counseled her again about continuing to smoke and the risks associated with this. She does have s evere obstructive lung disease and is oxygen dependent. Hopefully, we will see gradual resolution this week and avoid a thoracotomy.
[2018-01-19] MEDS: Acetaminophen 325 MG TAB PO PRN (15:11)
[2018-01-19] MEDS: Cefdinir 300 MG CAP PO SCH (21:22)
[2018-01-19] MEDS: Montelukast Sodium 10 mg Tablet PO SCH (21:23)
[2018-01-19] MEDS: Lidocaine Patch Removal TOP SCH (21:25)
[2018-01-20] MEDS: HYDROcodone/Acetaminophen 5/325 mg Tablet PO PRN ×3 (02:23→11:37)
[2018-01-20] MEDS: Mometasone/Formoterol 120 PUFF INHALER INH SCH (07:29)
[2018-01-20] MEDS: Famotidine 20 MG TAB PO SCH (09:36)
[2018-01-20] MEDS: Saccharomyces boulardii 250 MG CAP PO SCH (09:36)
[2018-01-20] MEDS: Docusate 100 MG CAP PO SCH (09:36)
[2018-01-20] MEDS: DULoxetine 60 MG CAP PO SCH (09:36)
[2018-01-20] MEDS: Nystatin 500,000 UNITS/5 ML UDCUP SSW SCH ×2 (09:36→13:34)
[2018-01-20] MEDS: Cefdinir 300 MG CAP PO SCH (09:36)
[2018-01-20] MEDS: Enoxaparin Sodium 40 MG/0.4 ML SYRINGE SC SCH (09:37)
[2018-01-20] MEDS: Lidocaine 5% Patch TD SCH (09:38)
[2018-01-20 11:47] VITALS: BP 139/62; TEMP 98
--- NOTE | 2018-01-20 17:10 | PRG ---
DATE OF SERVICE: 01/20/2018 SUBJECTIVE: Ms. Villalpando has no complaints. OBJECTIVE: VITAL SINGS: She is afebrile, heart rate 71, respiratory rate 16, oximetry is 92, blood pressure 139 /62. LUNGS: She has no wheezes on chest exam. HEART: Regular rhythm, no S3. ABDOMEN: Soft and nontender. IMPRESSION: Pneumonia with parapneumonic effusion that is sterile and exudative. PLAN: 1. Prednisone 20 mg a day. She says she has no problem with p.o. steroids. 2. Omnicef 300 twice a day for 10 more days. 2. Follow up in 3 weeks with chest radiograph in my office.
--- NOTE | 2018-01-21 13:00 | DIS ---
DATE OF ADMISSION: 01/14/2018 DATE OF DISCHARGE: 01/20/2018 DISCHARGE DIAGNOSES: As of the followin. Parapneumonic process. 2. Pneumonia, community acquired. 3. Chronic obstructive pulmonary disease exacerbation. 4. Anxiety, depression. 5. Thyroid nodule. 6. Hyponatremia. HOSPITAL COURSE: Patient is a very pleasant 57-year-old female who presented on 01/14 with complaint s of left-sided pain. The patient has a history of chronic respiratory failure secondary to COPD. S he had just been discharged from the hospital on 01/11 for community-acquired pneumonia and a very sm all pericardial effusion. The patient was treated for her pneumonia and started having some left-myron ed chest pain. She initially had a chest x-ray, which indicated a left-sided pleural effusion, possi ble parapneumonic effusion secondary to her recent pneumonia. Due to a persistence of her symptoms, Pulmonary was consulted that for possible thoracentesis. The patient's fluid indicated from thoracen tesis calculating the Light's criteria indicated exudative process. At this time, patient was put on antibiotics, was watched in the hospital for a few more days and then was discharged home. Patient would follow up with Pulmonology as outpatient for a repeat chest x-ray in regard to this. The patie nt was discharged home with Tylenol with codeine q.6 hours p.r.n., Tessalon 100 mg q.4 hours p.r.n., cefdinir 300 mg b.i.d., diclofenac 2 grams p.o. q.i.d. She was also given Florastor 250 mg daily, pr ednisone 20 mg daily, Singulair 10 mg q.p.m., DuoNeb q.4 hours p.r.n., Cymbalta 60 mg daily, ranitidi ne 150 mg daily, and Ellipta 1 puff inhalation daily. PHYSICAL EXAMINATION: VITAL SIGNS: On discharge, temperature of 98.0, respirations were 16, 92% on nasal cannula, 139/62. GENERAL: She is awake, alert, and oriented x3. She does appear in distress. CARDIOVASCULAR: S1, S2 present. No murmurs, rubs, or gallops. ABDOMEN: Soft, nontender. Bowel sounds are present x2. LUNGS: She does have decreased breath sounds to left lower lung area. Again, the patient was seen and admitted on 01/14 for complicated parapneumonic effusion post, given her recent pneumonia. She did undergo a thoracentesis, which indicated exudative process per Light's criteria. She was put on oral antibiotics, initially was put on IV and then was transitioned to ora l and was discharged to home. She is to follow up with primary and with Pulmonology. The patient at that time required home oxygen given her decreased oxygen saturation on ambulation.
--- NOTE | 2018-01-29 18:24 | EKG ---
Test Reason : CP Blood Pressure : / mmHG Vent. Rate : 111 BPM Atrial Rate : 111 BPM P-R Int : 130 ms QRS Dur : 078 ms QT Int : 328 ms P-R-T Axes : 071 063 045 degrees QTc Int : 446 ms Sinus tachycardia Cannot rule out Anterior infarct , age undetermined Abnormal ECG Confirmed by SIMRAN SINGLETARY D.O. ([id number]), associate entertainment editor ERICK CUNHA ([id number]) on 01/29/2018 6:22:51 PM Referred By: Confirmed By:SIMRAN SINGLETARY D.O.
== END 2018-01-20 16:46 | disposition home or self-care (01) | DRG 190 ==
LOC: ERS 12:46 → 2NO 17:06
PROVIDERS: ADMIT Internal Medicine; ATTEND Internal Medicine
PROC: 0W9B3ZZ Drainage of Left Pleural Cavity, Percutaneous Approach (ICD-10-PCS; principal; 2018-01-15)
DX: J44.0 Chronic obstructive pulmonary disease with (acute) lower respiratory infection (principal); J18.9 Pneumonia, unspecified organism; J91.8 Pleural effusion in other conditions classified elsewhere; J96.10 Chronic respiratory failure, unspecified whether with hypoxia or hypercapnia; B37.0 Candidal stomatitis; E87.1 Hypo-osmolality and hyponatremia; J44.1 Chronic obstructive pulmonary disease with (acute) exacerbation; F17.210 Nicotine dependence, cigarettes, uncomplicated; F41.9 Anxiety disorder, unspecified; F32.9 Major depressive disorder, single episode, unspecified; E04.1 Nontoxic single thyroid nodule; Z88.0 Allergy status to penicillin; Z88.8 Allergy status to other drugs, medicaments and biological substances; Z79.899 Other long term (current) drug therapy
CPT/HCPCS: 32554; 36415; 71045; 71046; 71260; 80048; 82150; 82945; 83605; 83615; 83880; 83930; 83935; 83986; 84157; 84300; 84443; 84478; 85007; 85025; 85027; 85060; 87040; 87070; 87116; 87205; 87206; 88112; 88305; 89051; 93005; 93306; 94664; 96374; 96375; 99496; G8978-GP-CI; G8979-GP-CI; G8980-GP-CI; J0692; J1642; J1650; J1956; J2001; J2270; J3490; J7050; J7620; Q0162

== ENCOUNTER 2018-01-28 14:05 | Outpatient (CLI) | payer MEDICARE | END 2018-01-28 14:06 | disposition home or self-care (01) | LOC: BICULT 14:05 | PROVIDERS: ATTEND Internal Medicine | DX: E04.1 Nontoxic single thyroid nodule (principal); E04.2 Nontoxic multinodular goiter | CPT/HCPCS: 76536 ==

== ENCOUNTER 2018-05-09 15:51 | Emergency (ER) | payer MEDICARE ==
[2018-05-09 16:37] LABS: #Basophils 0.1 thou/uL (0.0-0.2); #Eosinphils 0.2 thou/uL (0.0-0.7); #Lymphocytes 3.7 thou/uL (1.20-3.40); #Monocytes 0.7 thou/uL (0.11-0.59); #Neutrophils 8.7 thou/uL (1.40-6.50); %Basophils 0.7 % (0.0-1.0); %Eosinophils 1.2 % (0.0-10.0); %Lymphocytes 27.9 % (21.0-51.0); %Monocytes 4.9 % (0.0-10.0); %Neutrophils 65.2 % (42.0-75.0); Hemoglobin 16.1 g/dL (12.0-16.0); Mean Corpuscular Hemoglobin 32.2 pg (27.0-31.0); Mean Corpuscular Volume 94.7 fL (78.0-98.0); Mean Platelet Volume 6.6 fL (7.4-10.4); Platelet Count 414 thou/uL (130-400); RBC Distribution Width 12.6 % (11.5-14.5); Red Blood Cell (RBC) Count 4.99 mill/uL (4.20-5.40); White Blood Cell (WBC) Count 13.4 thou/uL (4.8-10.8)
[2018-05-09 16:59] LABS: ALT (SGPT) 18 U/L (8-55); AST (SGOT) 18 U/L (5-34); Albumin 4.8 g/dL (3.5-5.0); Alkaline Phosphatase 77 U/L (40-150); Anion Gap 11 mmol/L (10-20); BUN (Urea Nitrogen) 10 mg/dL (9.8-20.1); Bilirubin, Total 0.3 mg/dL (0.2-1.2); Calc. Creatinine Clearance 0 mL/min (70-130); Calcium 9.9 mg/dL (7.8-10.44); Carbon Dioxide 26 mmol/L (22-29); Chloride 103 mmol/L (98-107); Estimated GFR-MDRD 82; Globulin 2.9 g/dL (2.4-3.5); Glucose 97 mg/dL (70-105); Lipase 33 U/L (8-78); Potassium 4.3 mmol/L (3.5-5.1); Protein, Total 7.7 g/dL (6.0-8.3); Sodium 136 mmol/L (136-145)
[2018-05-09] MEDS ORDERED: Morphine 4 MG/ML VIAL ONE (17:56)
--- NOTE | 2018-05-09 17:56 | ULT ---
ULTRASOUND ABDOMEN COMPLETE: INDICATIONS: Upper abdominal pain, right-sided, for four days. TECHNIQUE: Albert-scale ultrasound evaluation of the liver, gallbladder, spleen, pancreas, common bile duct, kidne ys, abdominal aorta, and inferior vena cava (IVC). FINDINGS: There is no focal hepatic lesion or acute gallbladder pathology. The common duct is normal, measurin g 4 mm. Marie sign is reported as negative. There is no evidence of a suspicious renal mass. Mild prominence of the right renal pelvis is seen. There is no acute abnormality of the visualized splee n. Imaged abdominal aorta is unremarkable. Otherwise, no significant abnormality. IMPRESSION: No acute abnormality identified within the abdomen, by sonographic evaluation. URINARY BLADDER ULTRASOUND WITH ALBERT SCALE AND DOPPLER COLORFLOW IMAGING: INDICATIONS: Pain. FINDINGS: The imaged urinary bladder is moderately distended. Jets are documented by Doppler assessment bilate rally. No intrinsic bladder mass is seen sonographically, within limitations. There is no perivesicular fluid. IMPRESSION: Moderately distended urinary bladder is grossly unremarkable sonographically. POS: [facility]
--- NOTE | 2018-05-09 18:24 | RAD ---
FRONTAL VIEW CHEST SERIES: INDICATIONS: Right upper quadrant pain. TECHNIQUE: Two views provided. FINDINGS: The lungs are hyperinflated with interstitial prominence bilaterally. There is a normal size of the cardiac silhouette. Vascular calcification is present. IMPRESSION: Chronic obstructive pulmonary disease. POS: [facility]
[2018-05-09] MEDS ORDERED: Ketorolac Tromethamine 30 MG/ML VIAL ONE (18:36)
[2018-05-09 18:40] LABS: Bilirubin Negative (Negative); Blood, Urine Negative (Negative); Clarity CLEAR (Clear); Glucose, Urine (Dipstick) Negative (Negative); Leukocyte Negative (Negative); Nitrite Negative (Negative); Protein, Urine (Dipstick) Negative (Neg-Trace); Specific Gravity, Urine 1.012 (1.002-1.036); Urobilinogen 0.2 mg/dL (0.2-1.0); pH, Urine 6.5 (5.0-9.0)
[2018-05-09 18:42] LABS: CKMB 2.9 ng/mL (0-6.6); Troponin I Less than 0.010 ng/mL (< 0.028)
== END 2018-05-09 17:21 | disposition home or self-care (01) ==
LOC: ERS 15:51
DX: M62.89 Other specified disorders of muscle (principal); J44.9 Chronic obstructive pulmonary disease, unspecified; F17.210 Nicotine dependence, cigarettes, uncomplicated; Z79.899 Other long term (current) drug therapy
CPT/HCPCS: 36415; 71045; 76700; 80053; 81003; 82553; 83690; 84484; 85025; 85379; 93005; 96361; 96374; 96375; J1885; J2270

== ENCOUNTER 2018-10-06 09:46 | Outpatient (CLI) | payer MEDICARE ==
[2018-10-06] MEDS ORDERED: ISOVUE-370 76%-LOCM 1 ML ONE (10:09)
--- NOTE | 2018-10-06 12:03 | ULT ---
THYROID ULTRASOUD: History: Thyroid nodule. Comparison: 01-28-18 FINDINGS: Real-time imaging of the right and left lobes of the thyroid were performed. The right lobe measures 1.3 x 1.8 x 5.2 cm. The left lobe 1.4 x 1.6 x 4.6 cm. Within the left lobe there are two more dominant areas, one is a 2 cm slightly oblong shaped complex cystic lesion without internal calcifications in the mid to upper pole region, this appears stable as compared to the prior examination. The second lesion is a more hypoechoic area measuring 1.1 cm in m aximum size. It appears to be a solid lesion. It is wider than tall. Margins are slightly ill-defined . No calcifications or other suspicious features. This lesion also appears stable as compared to the prior exam. IMPRESSION: Stable left lobe thyroid nodules. POS: [facility]
--- NOTE | 2018-10-06 13:01 | CT ---
CONTRAST ENHANCED CT IMAGES OF ABDOMEN AND PELVIS: HISTORY: Right upper quadrant pain. COMPARISON: Comparison is made to previous exam from 01/04/2019. FINDINGS: CT images demonstrate the lung bases to be unremarkable, except for some bibasilar scarring. Previou sly noted area of left lower lobe consolidation has resolved from the 2018 CT. Segment 2 left hepatic cyst is present unchanged since the previous exam. The rest of the liver is un remarkable. The spleen is unremarkable. Pancreas unremarkable. The gallbladder is unremarkable. Adrenal glands are unremarkable. The kidneys demonstrate no evidence of masses or lesions. No evidence of periaortic lymphadenopathy is seen. A calcification of the aorta and iliac artery is seen. The small bowel is unremarkable. No significant evidence of colonic distention seen. A moderate juan m unt of stool is seen in the colon. IMPRESSION: Unremarkable CT images of abdomen and pelvis. POS: [facility]
== END 2018-10-06 09:47 | disposition home or self-care (01) ==
LOC: BICULT 09:46
PROVIDERS: ATTEND Specialist
DX: E04.1 Nontoxic single thyroid nodule (principal); R10.11 Right upper quadrant pain; E04.2 Nontoxic multinodular goiter
CPT/HCPCS: 74177; 76536; Q9966

== ENCOUNTER 2019-01-31 11:05 | Outpatient (CLI) | payer MEDICARE ==
--- NOTE | 2019-01-31 11:51 | RAD ---
2 VIEWS CHEST: Date: 01/31/19 COMPARISON: 01/26/18 and 09/28/18. HISTORY: COPD exacerbation. Cough for a couple of days. FINDINGS: Normal cardiac silhouette. Pulmonary vessels and hilum are normal. Costophrenic angles are clear. Jocelyn gs are hyperinflated. Chronic changes, without consolidation or mass. No pneumothorax or acute osseou s abnormalities. IMPRESSION: COPD. Hyperinflation. Chronic changes. POS: [facility]
== END 2019-01-31 11:06 | disposition home or self-care (01) ==
LOC: BICRAD 11:05
PROVIDERS: ATTEND Internal Medicine
DX: J44.1 Chronic obstructive pulmonary disease with (acute) exacerbation (principal)
CPT/HCPCS: 71046

== ENCOUNTER 2019-03-17 10:45 | Outpatient (CLI) | payer MEDICARE ==
--- NOTE | 2019-03-17 11:30 | RAD ---
PA AND LATERAL VIEWS CHEST: Date: 03/17/19 HISTORY: COPD exacerbation, bronchitis. FINDINGS: Comparison made with exam of 01/31/19. The heart size is normal. Changes of COPD are seen. The aorta is tortuous. No lobar consolidation, pn eumothoraces, or pleural effusions are identified. IMPRESSION: No acute process. POS: [facility]
== END 2019-03-17 10:46 | disposition home or self-care (01) ==
LOC: BICRAD 10:45
PROVIDERS: ATTEND Internal Medicine
DX: J44.1 Chronic obstructive pulmonary disease with (acute) exacerbation (principal)
CPT/HCPCS: 71046

== ENCOUNTER 2019-03-27 15:44 | Outpatient (CLI) | payer MEDICARE ==
--- NOTE | 2019-03-27 16:46 | RAD ---
Frontal and lateral imaging of the left femur: 03/27/2019 COMPARISON: None HISTORY: Left leg pain, mid femur pain FINDINGS: No fracture or evidence of dislocation. No acute osseous abnormality. IMPRESSION: No acute osseous abnormality.
== END 2019-03-27 15:45 | disposition home or self-care (01) ==
LOC: BICRAD 15:44
PROVIDERS: ATTEND Internal Medicine
DX: M79.605 Pain in left leg (principal)

== ENCOUNTER 2019-03-29 09:14 | Outpatient (CLI) | payer MEDICARE ==
--- NOTE | 2019-03-29 10:19 | MMO ---
Bilateral MAMMO Bilat Screen [facility]. CLINICAL HISTORY: Patient is 58 years old and is seen for screening. The patient has no family history of breast cancer. The patient has a history of cervical cancer at age 26. VIEWS: The views performed were: bilateral craniocaudal with tomosynthesis and bilateral mediolateral oblique with tomosynthesis. MAMMOGRAM FINDINGS: The breasts are heterogeneously dense, which could obscure a lesion on mammography. Finding 1: There are benign appearing calcifications seen in both breasts. Finding 2: There are multiple nodules with circumscribed margins seen in both breasts. There are no suspicious masses, suspicious calcifications, or new areas of architectural distortion. IMPRESSION: THERE IS NO MAMMOGRAPHIC EVIDENCE OF MALIGNANCY. A ROUTINE FOLLOW-UP MAMMOGRAM IN 1 YEAR IS RECOMMENDED. THE RESULTS OF THIS EXAM WERE SENT TO THE PATIENT. ACR BI-RADS Category 2 - Benign finding MAMMOGRAPHY NOTE: 1. A negative mammogram report should not delay a biopsy if a dominant of clinically suspicious mass is present. 2. Approximately 10% to 15% of breast cancers are not detected by mammography. 3. Adenosis and dense breasts may obscure an underlying neoplasm. Reported by: FRANCISCO ESPINOZA MD Electonically Signed: [id number]
--- NOTE | 2019-03-29 12:25 | BD ---
DEXA BONE DENSITY STUDY: Date: 03/29/19 COMPARISON: 11/17/16. HISTORY: 58-year-old postmenopausal female for screening for osteoporosis. FINDINGS: Lumbar Spine: BMD (g/cm2) L1 0.742 T-Score: -2.3 L2 0.769 T-Score: -2.4 L3 0.806 T-Score: -2.5 L4 0.778 T-Score: -2.6 L1-L4 0.775 T-Score: -2.5 Left Femoral Neck: 0.578 T-Score: -2.4 Total Femur: 0.696 T-Score: -2.0 IMPRESSION: Osteoporosis. When compared to the prior examination, the bone density in the spine has decreased approximately 4% and the bone density in the hip has decreased approximately 7%. POS: [facility]
== END 2019-03-29 09:15 | disposition home or self-care (01) ==
LOC: BICMAMMO 09:14
PROVIDERS: ATTEND Internal Medicine
DX: Z12.31 Encounter for screening mammogram for malignant neoplasm of breast (principal); Z13.820 Encounter for screening for osteoporosis; Z78.0 Asymptomatic menopausal state; M81.0 Age-related osteoporosis without current pathological fracture; Z85.41 Personal history of malignant neoplasm of cervix uteri
CPT/HCPCS: 77063; 77067; 77080

== ENCOUNTER 2019-05-12 04:05 | Inpatient (IN) | payer MEDICARE ==
[2019-05-12] MEDS ORDERED: Morphine 4 MG/ML VIAL ONE (04:21)
[2019-05-12 05:22] LABS: #Basophils 0.1 thou/uL (0.0-0.2); #Eosinphils 0.2 thou/uL (0.0-0.7); #Lymphocytes 4.2 thou/uL (1.20-3.40); #Monocytes 1.4 thou/uL (0.11-0.59); #Neutrophils 12.7 thou/uL (1.40-6.50); %Basophils 0.6 % (0.0-1.0); %Eosinophils 1.2 % (0.0-10.0); %Lymphocytes 22.4 % (21.0-51.0); %Monocytes 7.5 % (0.0-10.0); %Neutrophils 68.3 % (42.0-75.0); Hemoglobin 13.6 g/dL (12.0-16.0); Mean Corpuscular HGB CONC 32.8 g/dL (32.0-36.0); Mean Corpuscular Hemoglobin 31.7 pg (27.0-31.0); Mean Corpuscular Volume 96.5 fL (78.0-98.0); Mean Platelet Volume 6.4 fL (7.4-10.4); Platelet Count 386 thou/uL (130-400); RBC Distribution Width 11.6 % (11.5-14.5); Red Blood Cell (RBC) Count 4.31 mill/uL (4.20-5.40); White Blood Cell (WBC) Count 18.6 thou/uL (4.8-10.8)
[2019-05-12 05:45] LABS: ALT (SGPT) 25 U/L (8-55); AST (SGOT) 49 U/L (5-34); Albumin 3.6 g/dL (3.5-5.0); Alkaline Phosphatase 78 U/L (40-110); Anion Gap 14 mmol/L (10-20); BUN (Urea Nitrogen) 9 mg/dL (9.8-20.1); Bilirubin, Total 0.3 mg/dL (0.2-1.2); Calc. Creatinine Clearance 0 mL/min (70-130); Calcium 8.1 mg/dL (7.8-10.44); Carbon Dioxide 21 mmol/L (22-29); Chloride 104 mmol/L (98-107); Estimated GFR-MDRD Greater than 90; Globulin 2.6 g/dL (2.4-3.5); Glucose 85 mg/dL (70-105); Lipase 17 U/L (8-78); Potassium 3.8 mmol/L (3.5-5.1); Protein, Total 6.2 g/dL (6.0-8.3); Sodium 135 mmol/L (136-145)
[2019-05-12] MEDS ORDERED: MEROPENEM 1 GM/50 ML 1 GM in Premix Bag 1 BAG IVPB SCH (06:45)
--- NOTE | 2019-05-12 07:31 | CT ---
CT OF THE ABDOMEN AND PELVIS WITH CONTRAST: HISTORY: Sudden onset of abdominal pain with nausea and vomiting. TECHNIQUE: Multiple contiguous axial images were obtained in a CT of the abdomen and pelvis with contrast. Senthil nal reformats were performed. COMPARISON: 10/06/2018. FINDINGS: The gallbladder is distended and has a small amount of fluid surrounding the gallbladder. The common bile duct is enlarged measuring 11 mm. There is mild enlargement of the pancreatic duct. There is hyperdensity in the region of the pancreatic head where the common bile duct becomes a more narrow ca liber. This may represent debris in the common bile duct. Mild intrahepatic biliary dilatation is s een. The biliary findings are new compared to the prior CT. A subcentimeter hypodensity in the left kidney likely represents a cyst. In the right kidneys, adren al glands, and spleen are unremarkable. The large and small bowel are unremarkable. The reproductive organs are unremarkable. No abdominal or pelvic lymphadenopathy are seen. Atherosclerotic calcifications are seen in the aorta. The osseous structures, visualized inferior thorax, and abdominal wall soft tissues are unremarkable. IMPRESSION: There is enlargement of the biliary tree with hyperdense material in the common bile duct. This cou ld represent sludge or small stones in the common bile duct. The gallbladder is also distended with surrounding fluid. A right upper quadrant ultrasound is recommended for further evaluation. Correla te with LFTs. POS: [facility]
--- NOTE | 2019-05-12 07:43 | ULT ---
RIGHT UPPER QUADRANT ABDOMINAL ULTRASOUND: HISTORY: Right upper quadrant abdominal pain with nausea and vomiting. COMPARISON: CT abdomen/pelvis 05/12/2019. TECHNIQUE: Multiplanar, ray scale, and color Doppler images were obtained in a right upper quadrant abdominal u ltrasound. FINDINGS: The gallbladder is distended and contains a few small shadowing stones. There is gallbladder wall th ickening and a small amount of pericholecystic fluid. The common bile duct is enlarged measuring 10 mm. No obvious shadowing stones are seen in the common bile duct. A positive sonographic Marie's s ign was reported by the technologist. The pancreatic duct is prominent. The visualized portions of the pancreas are otherwise unremarkable . The right kidney is normal in echogenicity without hydronephrosis or calculus and measures 9.9 cm in length. IMPRESSION: 1. Cholelithiasis with findings suggesting acute cholecystitis. 2. Dilated common bile duct. This may be secondary to choledocholithiasis. POS: [facility]
[2019-05-12] MEDS ORDERED: Morphine 4 MG/ML VIAL IV PRN (09:21)
[2019-05-12] MEDS ORDERED: Ondansetron PF 4 MG/2 ML Vial IVP PRN (09:22)
[2019-05-12] MEDS ORDERED: Ondansetron ODT 4 MG TAB PO PRN (09:22)
[2019-05-12] MEDS ORDERED: PROVENTIL INHALER 6.7 G (200 INHALATIONS) INH PRN (09:31)
[2019-05-12] MEDS ORDERED: Promethazine HCl 25 MG in Sodium Chloride 0.9% 50 ML IVPB PRN (09:37)
[2019-05-12] MEDS ORDERED: Acetaminophen 325 MG TAB PO PRN (09:38)
--- NOTE | 2019-05-12 11:18 | HP ---
PRIMARY CARE PHYSICIAN: Dr. Hamilton. CHIEF COMPLAINT: Right upper quadrant abdominal pain, nausea, and vomiting. HISTORY OF PRESENT ILLNESS: Ms. Villalpando is a 58-year-old female with a past medical history of chronic obstructive pulmonary disease, who had presented to the ED earlier this morning due to worsening right upper quadrant abdominal pain, nausea, and vomiting that had started late last night. She states that she has had about 5 episodes of nausea and vomiting since and has not had an appetite. She is currently on her home O2 and no further changes with that, she had denied any fever, chills, headache, blurred vision, dizziness, any chest pain, palpitations, shortness of breath other than her baseline, or any change in stool. Her workup showed an elevated white count of 18.6. CT and gallbladder ultrasound indicated cholelithiasis with findings suggestive of acute cholecystitis with a dilated common bile duct; therefore, Dr. Castro with General Surgery was contacted for further management. She was given IV meropenem 1 g along with 4 mg of morphine, she states that since this, her pain has slightly improved and currently no other complaints at this time. REVIEW OF SYSTEMS: All other systems reviewed and found to be negative unless mentioned in the HPI. PAST MEDICAL HISTORY: COPD, anxiety, and depression. PAST SURGICAL HISTORY: section and surgery on her eyes at age 2. SOCIAL HISTORY: The patient states she drinks socially roughly once every 1 to 2 weeks. Denies any illicit drug use. She states that she smokes about a half pack of cigarettes per day. KNOWN ALLERGIES: Penicillins, Solu-Medrol, and Zofran. CURRENT HOME MEDICATIONS: 1. Acetaminophen/codeine 300 mg/30 mg one tablet oral every 6 hours as needed for pain. 2. Ranitidine 150 mg oral twice daily. 3. Duloxetine 60 mg oral daily. 4. Montelukast 10 mg oral daily. 5. Albuterol 90 mcg inhaler as needed for wheezing or shortness of breath. 6. Prednisone 10 mg oral daily. 7. Buspirone 7.5 mg oral twice daily. 8. Buprenorphine 150 mcg oral 3 times daily. 9. Breo Ellipta 100/25 mcg one puff inhalation daily. 10. Ipratropium/albuterol (DuoNeb) every 4 hours. PHYSICAL EXAMINATION: VITAL SIGNS: Blood pressure 161/70, pulse 71, respirations 16, temperature 98.0, and O2 saturation 96% on 2 L of oxygen via nasal cannula. GENERAL: The patient is awake, alert, and oriented x3. She is currently lying comfortably in bed. She appears to be in mild acute distress due to her abdominal pain, otherwise unremarkable. She has 2 L of oxygen in place and her son is at bedside. HEENT: Atraumatic and normocephalic. Pupils are round and reactive to light. Extraocular muscles intact. Moist mucous membranes noted. CARDIOVASCULAR: Positive S1 and S2. Regular rate and rhythm. No murmur auscultated. RESPIRATORY: Clear to auscultation bilaterally. No wheezes, rales, or rhonchi. ABDOMEN: Soft. Tenderness to the right upper quadrant noted. Bowel sounds present. MUSCULOSKELETAL: Moves all extremities equal. Pedal and radial pulses 2+ bilaterally. No edema noted. NEUROLOGIC: Cranial nerves 2 through 12 grossly intact. No focal deficits noted. Speech intact and normal. Gait not assessed. SKIN: Warm, dry and intact. No rashes. No ulceration noted. PSYCHIATRIC: Good mood and affect. LABORATORY DATA: WBC 18.6, RBC 4.31, hemoglobin 13.6, hematocrit 41.6, platelet 386. Sodium 135, potassium 3.8, anion gap 14, BUN 9, creatinine 0.61, estimated GFR greater than 90, glucose 85. Total bilirubin 0.3, AST 49, ALT 25, alkaline phosphatase 78, and lipase 17. DIAGNOSTIC IMAGING: CT of abdomen and pelvis showed that there was enlargement in the biliary tree with hyperdense material in the common bile duct. Right upper quadrant ultrasound showed cholelithiasis with findings suggestive of acute cholecystitis with a dilated common bile duct. ASSESSMENT AND PLAN: 1. Acute cholecystitis. Dr. Castro with General Surgery was consulted for further management. She had received IV meropenem along with IV morphine for her pain control. 2. History of chronic obstructive pulmonary disease. We will resume her home regimen and consult Pulmonology for further evaluation and possible surgical clearance. 3. History of anxiety and depression. Continue home regimen when she is able to tolerate oral medications and intake. 4. Deep venous thrombosis and gastrointestinal prophylaxis. 5. Code status, full code. DISPOSITION: Pending further workup and clinical findings. Job ID: [id number]
[2019-05-12] MEDS ORDERED: ISOVUE-370 76%-LOCM 1 ML ONE (12:37)
[2019-05-12 14:30] VITALS: BMI 17.5
--- NOTE | 2019-05-12 15:15 | CON ---
DATE OF CONSULTATION: 05/12/2019 REQUESTING PHYSICIAN: Jason Rosales MD HISTORY OF PRESENT ILLNESS: Ms. Villalpando is a 58-year-old woman with history of severe COPD, on home O2. The patient presented to the emergency department with insidious onset severe right upper quadrant postprandial abdominal pain. Pain intensified to 10/10, approximately 0200 hours, associated with multiple episodes of nausea and nonbilious emesis. She denies any fevers or chills. She denies any abdominal bloating or diarrhea. She has not experienced similar pain in the past. PAST MEDICAL HISTORY: Significant for home O2 dependent COPD, chronic anxiety and depression. PAST SURGICAL HISTORY: Pertinent for via a low Pfannenstiel incision and some eye surgery at age 2. SOCIAL HISTORY: The patient smokes one pack of cigarettes per day and has done so for over 20 years. She admits to occasional intake of ethanol in moderate amount, but denies any illicit drug abuse. PRE-HOSPITAL MEDICATIONS: Include, 1. Ranitidine 150 mg p.o. b.i.d. 2. Acetaminophen with codeine 1 p.o. q.6 hours p.r.n. 3. Montelukast 10 mg p.o. daily. 4. Prednisone 10 mg p.o. daily. 5. Duloxetine 60 mg p.o. daily. 6. Albuterol inhalation therapy p.r.n. wheezing. 7. Buspirone 7.5 mg p.o. b.i.d. 8. Breo Ellipta 100/25 one puff daily. 9. Buprenorphine 150 mcg p.o. t.i.d. 10. DuoNebs every 4 hours. ALLERGIES: TO PENICILLIN AND ZOFRAN. REVIEW OF SYSTEMS: Significant for 10- to 20-pound weight loss over the last four months and that is unexplained. She also endorses early satiety and anorexia associated with chronic fatigue. Remainder of review of systems as stated in past medical history and chief complaint. PHYSICAL EXAMINATION: GENERAL: Reveals a 58-year-old cachectic-appearing woman, who is otherwise coherent, interactive, and appears stated age. The patient is alert and oriented x3, appears to be in no acute distress at the time of my evaluation. At the time of this evaluation frankly, she denies any abdominal pain. VITAL SIGNS: Currently include blood pressure 144/86, pulse 80, respiratory rate is 20, temperature 98.5 degrees Fahrenheit, and oxygen saturation is 95% on 2 L by nasal cannula oxygen. HEENT: Pupils are equal, round, and reactive to light and accommodation. She has no scleral icterus present. HEART: Reveals regular rate and rhythm. No murmurs or gallops auscultated. LUNGS: Clear to auscultation bilaterally. Her breathing is regular and nonlabored. ABDOMEN: Soft and scaphoid. She has no right upper quadrant tenderness to palpation. Liver and spleen are otherwise nonpalpable below costal margin. NEUROLOGIC: Reveals no focal deficits present. LABORATORY FINDINGS: Today include CBC with 18,600 white blood cells, hemoglobin and hematocrit are 13.6 and 41.6 respectively. Platelet count is 386,000. Metabolic profile; sodium 135, potassium is 3.8, chloride is 104, bicarb is 21, BUN 9, creatinine is 0.61, glucose 85, total bilirubin is 0.3, AST and ALT are 49 and 25 respectively. Alkaline phosphatase is normal at 78. Serum lipase is also normal at 17. I have personally reviewed the abdominal ultrasound, which was obtained this morning, remarkable for a slightly distended gallbladder, significant gallbladder wall thickening, and small pericholecystic fluid. There is also noted multiple small intraluminal gallstones and biliary sludge. Common bile duct is markedly dilated for this patient's age at 10 mm in diameter. I have also reviewed the CT scan of the abdomen and pelvis, which is remarkable for slightly distended gallbladder with pericholecystic fluid. Common bile duct is enlarged here at 11 mm. IMPRESSION: 1. Acute cholecystitis with cholelithiasis. 2. Enlarged common bile duct, etiology is unknown, this may be secondary to choledocholithiasis versus neoplastic process. RECOMMENDATIONS: The patient is currently asymptomatic. Therefore, no surgical intervention is warranted at this time. We will recommend antibiotic therapy and low-fat diet. The patient definitely requires upper and lower endoscopies to evaluate her recent weight loss that is unexplained. Consideration could be given also to ERCP at the discretion of Gastroenterology given the recent findings on the abdominal CT scan. If the patient becomes symptomatic prior to this workup, we will recommend cholecystostomy tube placement at that time. The patient ultimately will require cholecystectomy once other neoplastic process has been excluded. Above findings and recommendation has been discussed with the patient, who indicates understanding of information given. I have answered her questions. Job ID: [id number]
[2019-05-12] MEDS: MEROPENEM 1 GM/50 ML 1 GM in Premix Bag 1 BAG IVPB SCH (22:24)
--- NOTE | 2019-05-13 00:07 | CON ---
DATE OF CONSULTATION: 05/12/2019 HISTORY OF PRESENT ILLNESS: Ms. Villalpando is a 58-year-old female with COPD. She presented with complaints of abdominal discomfort that started within the last 24 hours. I was consulted because of her COPD. She has been followed by one of the piece worker in [place]. PAST MEDICAL HISTORY: Remarkable for anxiety, depression, , and eye surgery when she was young. SOCIAL HISTORY: She drinks occasionally. She smokes half-pack cigarettes a day. FAMILY HISTORY: Non contributory. ALLERGIES: SHE HAS ALLERGIES TO PENICILLIN, REPORTEDLY SOLU-MEDROL AND ZOFRAN. MEDICATIONS: Prior to admission, she is on; 1. Tylenol #3. 2. Zantac. 3. Duloxetine. 4. Singulair. 5. Albuterol. 6. Prednisone. 7. BuSpar. 8. Buprenorphine. 9. Breo. 10. Ipratropium. 11. Albuterol. REVIEW OF SYSTEMS: 10 point review of systems completed, otherwise negative. PHYSICAL EXAMINATION: GENERAL: Ms. Villalpando is a 58-year-old female with COPD. VITAL SIGNS: She is afebrile. Heart rate is 80, respiratory rate is 20, oximetry is 95%, blood pressure 151/91. HEENT: Pupils are equal. Sclerae are anicteric. NECK: Supple. No lymphadenopathy. LUNGS: Clear and distant. HEART: Regular rhythm. ABDOMEN: When I examined her abdomen, it is diffusely mildly tender. EXTREMITIES: Without clubbing, cyanosis, or edema. LABORATORY DATA: White count 18.6, hemoglobin 13.6, platelets 386. Sodium 135, potassium 3.8, chloride 104, bicarb 21, BUN 9, creatinine 0.6. IMAGING: CT of the abdomen and pelvis showed a distended gallbladder with pericholecystic fluid, and 11 mm common bile duct, pancreatic duct enlargement, narrowing of the common bile duct and pancreatic head with hyperdensity in the pancreatic head, the left renal cyst. Remainder of the CT is unremarkable other than atherosclerotic by calcification. IMPRESSION: 1. Chronic obstructive pulmonary disease, clinically not an issue. 2. Abdominal discomfort of unclear etiology. She is to be seen by General Surgery and Gastroenterology. We will follow. TIME SPENT: This is a 50-minute consult, with greater than 50% of the time spent on the unit coordinating care. Job ID: [id number] [facility]
--- NOTE | 2019-05-13 02:58 | PRG ---
DATE OF SERVICE: SUBJECTIVE: The patient is currently on the surgical floor. She was admitted today with acute cholecystitis with cholelithiasis. It is also noted that she had an enlarged common bile duct, etiology is unknown, this may be secondary to cholelithiasis versus neoplastic process. The patient was examined by Dr. Clarke today, who said that the patient was asymptomatic at the time of his exam and no surgical intervention was warranted at that time. He did recommend GI consultation for possible ERCP and probable upper and lower endoscopies to evaluate her recent weight loss. She is tolerating clear liquid diet. Her pain is controlled. PHYSICAL EXAMINATION: VITAL SIGNS: Stable. The patient is afebrile. GENERAL: The patient is resting comfortably in bed. She denies any significant pain at this time. She does have some nausea. The patient was asleep when I entered the room, but she awakened to gentle voice. ABDOMEN: Nontender with hypoactive bowel sounds. ASSESSMENT/PLAN: 1. Acute cholecystitis with cholelithiasis. 2. Enlarged common bile duct, etiology unknown, this may be secondary to cholelithiasis versus neoplastic process. Plan will be to continue supportive care. Await GI consultation per Dr. Clarke's note. If the patient becomes symptomatic, recommendation would be for cholecystostomy tube placement. Job ID: [id number]
[2019-05-13 04:43] LABS: #Basophils 0.1 thou/uL (0.0-0.2); #Eosinphils 0.4 thou/uL (0.0-0.7); #Lymphocytes 3.8 thou/uL (1.20-3.40); #Monocytes 0.8 thou/uL (0.11-0.59); %Eosinophils 3.8 % (0.0-10.0); %Monocytes 7.4 % (0.0-10.0); %Neutrophils 53.8 % (42.0-75.0); Mean Corpuscular HGB CONC 32.9 g/dL (32.0-36.0); Mean Corpuscular Hemoglobin 31.6 pg (27.0-31.0); Mean Corpuscular Volume 95.9 fL (78.0-98.0); Mean Platelet Volume 6.6 fL (7.4-10.4); Platelet Count 461 thou/uL (130-400); RBC Distribution Width 11.7 % (11.5-14.5); Red Blood Cell (RBC) Count 4.75 mill/uL (4.20-5.40); White Blood Cell (WBC) Count 11.1 thou/uL (4.8-10.8)
[2019-05-13 05:06] LABS: Anion Gap 13 mmol/L (10-20); BUN (Urea Nitrogen) 8 mg/dL (9.8-20.1); Calc. Creatinine Clearance 65 mL/min (70-130); Calcium 9.3 mg/dL (7.8-10.44); Carbon Dioxide 26 mmol/L (22-29); Chloride 103 mmol/L (98-107); Estimated GFR-MDRD Greater than 90; Glucose 82 mg/dL (70-105); Sodium 138 mmol/L (136-145)
[2019-05-13] MEDS: MEROPENEM 1 GM/50 ML 1 GM in Premix Bag 1 BAG IVPB SCH ×3 (05:36→21:46)
[2019-05-13] MEDS ORDERED: Non-Formulary Item 1 EACH (Umeclidinium Bromide [Incruse Ellipta] 1 PUFF) IH SCH (09:00)
[2019-05-13] MEDS ORDERED: FLU VACC QS2019-20(6MOS UP)/PF 60 MCG/0.5 ML SYRINGE IM ONE (09:00)
[2019-05-13] MEDS: DULoxetine 60 MG CAP PO SCH (09:52)
[2019-05-13] MEDS ORDERED: predniSONE 20 MG TAB PO SCH (10:30)
[2019-05-13] MEDS ORDERED: GoLYTELY 4,000 ml Bottle PO SCH (11:30)
[2019-05-13] MEDS ORDERED: busPIRone HCl 5 MG TAB PO SCH (12:00)
--- NOTE | 2019-05-13 15:36 | CON ---
DATE OF CONSULTATION: 05/13/2019 REQUESTING PHYSICIAN: Dr. Clarke. REASON FOR CONSULTATION: Weight loss and choledocholithiasis. HISTORY OF PRESENT ILLNESS: Joan Villalpando is a 58-year-old woman with a history of severe COPD, on home oxygen. She has no significant prior gastrointestinal history. A brother had colon polyps, but there is no family history of GI malignancy. The patient recently saw my partner, Dr. Fraser in the outpatient setting in consultation for weight loss. She has lost 10 pounds over the past few months. She reports chronically she has no issues with melena or hematochezia. She does deal with some chronically poor appetite. She will have occasional twinges of pain in the right upper quadrant. However, yesterday morning around 2:00 a.m., she had a fairly acute onset of severe epigastric pain associated with nausea and vomiting. This was quite severe for several hours and prompted her presentation. At this point, she has some residual soreness in the right upper quadrant, but no further vomiting today. She was evaluated by the surgical service of Dr. Clarke, who plans on no acute surgical intervention. She had ultrasound imaging and CT imaging demonstrating cholelithiasis with some gallbladder wall thickening and also dilation of the common bile duct to [address] demonstrating calcifications within the common bile duct consistent with choledocholithiasis. Notably, she has only mild LFT elevation and a normal lipase. We are consulted for consideration of upper and lower endoscopy as well as ERCP. REVIEW OF SYSTEMS: Full review of systems including constitutional, head, eyes, ears, nose, throat, GI, , cardiovascular, respiratory, musculoskeletal, and neurologic systems is negative except as noted in the HPI. PAST MEDICAL HISTORY: COPD, on home oxygen, anxiety, depression, , ovarian cyst removal. FAMILY HISTORY: A brother had colon polyps. Otherwise, no family history of GI malignancy. SOCIAL HISTORY: She drinks socially every one or two weeks. She smokes about a half pack of cigarettes per day. No drug use. ALLERGIES: PENICILLIN, SOLU-MEDROL, ZOFRAN. HOME MEDICATIONS: 1. Acetaminophen/codeine every 6 hours as needed. 2. Ranitidine 150 mg twice daily. 3. Duloxetine. 4. Montelukast. 5. Albuterol. 6. Prednisone. 7. Buspirone. 8. Buprenorphine. 9. Breo Ellipta inhaler. 10. DuoNeb inhaler. INPATIENT MEDICATIONS: 1. Meropenem 1 g IV q.6 hours. 2. Cymbalta. 3. Prednisone 20 mg daily. PHYSICAL EXAMINATION: VITAL SIGNS: Temperature 98.3, pulse 99, blood pressure 160/95, and 93% oxygen saturation on 2 L nasal cannula. GENERAL: Thin 58-year-old woman sitting up in chair comfortably, in no distress. SKIN: No jaundice, no rashes were palpable. HEENT: Eyes, no scleral icterus. Extraocular movements intact. ENT, mucous membranes moist. No oral lesions. Nasal cannula in place. LYMPH: No submandibular or supraclavicular lymphadenopathy. HEART: Regular rate and rhythm. LUNGS: Increased expiratory phase. No wheezing. On oxygen. ABDOMEN: Flat. Bowel sounds are present. Soft, tender to palpation in the upper abdomen. No guarding, rebound tenderness. EXTREMITIES: No peripheral edema. VESSELS: Radial pulses 2+ bilaterally. NEUROLOGIC: Cranial nerves 2 through 12 intact bilaterally. No focal deficits. LABORATORY STUDIES: Sodium 138, potassium 4.0, BUN 8, creatinine 0.61, total bilirubin 0.3, alkaline phosphatase 78, AST 49, ALT 25, lipase 17. WBC 11.1, hemoglobin 15.0, platelets 461. IMAGING STUDIES: Abdominal ultrasound from yesterday demonstrated gallbladder distention and cholelithiasis. There is gallbladder thickening and a small amount of pericholecystic fluid. The common bile duct was enlarged measuring 10 mm with a positive sonographic Marie sign. CT of the abdomen and pelvis also yesterday showed diffuse biliary dilation with hyperdense material in the common bile duct which could represent stones or sludge. Gallbladder distended with surrounding fluid. ASSESSMENT AND PLAN: 1. Choledocholithiasis. This is based on imaging features of biliary dilation and cholelithiasis as well as the appearance of stones or sludge within the common bile duct on CT. Notably, LFTs are not that elevated, but her pain symptoms are characteristic. I do think the patient is going to need ERCP with biliary sphincterotomy and stone extraction. She would also benefit from cholecystectomy, but we will leave that to the discretion of the Surgical Service. 2. Weight loss. This could be multifactorial, primarily secondary to chronic obstructive pulmonary disease. I agree that upper and lower endoscopy is warranted, was already planned in the outpatient setting. We will go ahead and plan to accomplish upper and lower endoscopy with ERCP tomorrow. Thank you for the consultation. Please call with questions or concerns. Job ID: [id number]
--- NOTE | 2019-05-13 18:29 | PDOC.HOSPP ---
- Subjective Encounter Date: 05/13/19 Encounter Time: 09:20 Subjective: Pt seen for followup re: choledocholithiasis. Reports RUQ pain. No fevers. - Objective Vital Signs & Weight: Vital Signs (12 hours) Temp Pulse Resp BP Pulse Ox 05/13/19 15:06 99.4 F 111 H 14 115/68 93 L 05/13/19 11:40 98.4 F 113 H 18 156/108 H 94 L 05/13/19 08:00 93 L 05/13/19 07:27 98.3 F 99 14 160/95 H 90 L Weight Admit Weight 89 lb 15.178 oz Weight 89 lb 15.178 oz Result Diagrams: 05/13/19 03:45 05/13/19 03:45 Additional Labs: Labs and MARs reviewed by ar Hospitalist ROS - Review of Systems Constitutional: reports: other (weight loss) Gastrointestinal: reports: nausea, abdominal pain. denies: vomiting, diarrhea, constipation, melena, hematochezia Genitourinary: denies: dysuria, frequency, incontinence, hematuria, retention - Medication Medications: Active Medications Generic Name Dose Route Start Last Admin Trade Name Freq PRN Reason Stop Dose Admin Duloxetine HCl 60 mg 05/13/19 09:00 05/13/19 09:52 Cymbalta PO 60 mg DAILY ALESSANDRA Administration Meropenem 1 gm/ Device 50 mls @ 100 mls/hr 05/12/19 22:00 05/13/19 14:38 IVPB 50 mls Q8HR ALESSANDRA Administration Polyethylene Glycol/Electrolytes 4,000 ml 05/13/19 11:30 05/13/19 17:31 Golytely PO 05/13/19 22:00 4,000 ml 1130 ALESSANDRA Administration Sodium Chloride 10 ml 05/12/19 21:00 05/13/19 09:53 Flush - Normal Saline IVF 10 ml Q12HR ALESSANDRA Administration Sodium Chloride 10 ml 05/12/19 09:22 05/13/19 14:39 Flush - Normal Saline IVF 10 ml PRN PRN Administration Saline Flush - Exam General - other findings: malnourished Eye: anicteric sclera ENT: no oropharyngeal lesions, moist mucosa Neck: supple Heart: RRR, no rubs Respiratory: CTAB, no rales Gastrointestinal: soft, normal bowel sounds, no guarding, no rigidity, tender to palpation Gastrointestinal - other findings: RUQ tenderness Neurological: no weakness Musculoskeletal: normal tone, normal strength Psychiatric: normal affect, normal behavior Hosp A/P (1) Choledocholithiasis Code(s): K80.50 - CALCULUS OF BILE DUCT W/O CHOLANGITIS OR CHOLECYST W/O OBST Status: Acute (2) Abnormal LFTs (liver function tests) Code(s): R94.5 - ABNORMAL RESULTS OF LIVER FUNCTION STUDIES Status: Acute (3) Weight loss Status: Chronic (4) Anxiety and depression Code(s): F41.9 - ANXIETY DISORDER, UNSPECIFIED; F32.9 - MAJOR DEPRESSIVE DISORDER, SINGLE EPISODE, UNSPECIFIED Status: Chronic (5) GERD (gastroesophageal reflux disease) Code(s): K21.9 - GASTRO-ESOPHAGEAL REFLUX DISEASE WITHOUT ESOPHAGITIS Status: Chronic Qualifiers: Esophagitis presence: without esophagitis Qualified Code(s): K21.9 - Gastro -esophageal reflux disease without esophagitis (6) Tobacco abuse Code(s): Z72.0 - TOBACCO USE Status: Chronic (7) Protein-calorie malnutrition, moderate Code(s): E44.0 - MODERATE PROTEIN-CALORIE MALNUTRITION Status: Chronic (8) COPD (chronic obstructive pulmonary disease) Status: Chronic - Plan plan discussed w/ family, continue antibiotics, out of bed/ambulate Plan for ERCP and endoscopy noted. Start nicotine patch. Continue oxygen, steroids and bronchodilators (pt uses nocturnal home oxygen). Anxiety and depression moderate, stable.
[2019-05-13] MEDS: Morphine 2 MG/ML SYRINGE SLOW IVP PRN (20:05)
[2019-05-13] MEDS: busPIRone HCl 5 MG TAB PO SCH (20:05)
[2019-05-13] MEDS: Mometasone/Formoterol 120 PUFF INHALER INH SCH (20:30)
--- NOTE | 2019-05-14 02:11 | PRG ---
DATE OF SERVICE: 05/13/2019 SUBJECTIVE: Ms. Villalpando is a 58-year-old woman whom I saw on 05/12/2019, in consultation for abdominal pain with cholecystitis and cholelithiasis. At the time of this visit, this patient reported no abdominal pain. OBJECTIVE: VITAL SIGNS: Had been stable including blood pressure 160/95, pulse 99, respiratory rate 14, temperature 98.3 degrees Fahrenheit, oxygen saturation 90% on 2 L by nasal cannula oxygen. HEART: Reveals irregular rate, irregular rhythm. LUNGS: Reveal bibasilar rhonchi. Breathing regular and nonlabored. ABDOMEN: Soft, nontender, nondistended. NEUROLOGIC: Reveals no focal deficits present. LABORATORY FINDINGS: Include a CBC with 11,100 white blood cells in contrast to 18,600 white blood cells yesterday. Hemoglobin and hematocrit have remained stable at 15.0 and 45.5 respectively. Platelet count 461,000. Metabolic profile; sodium 138, potassium 4.0, chloride is 103, bicarb 26, BUN 8, creatinine 0.61. IMPRESSIONS: 1. Acute cholecystitis with cholelithiasis. 2. Enlarged common bile duct, etiology unknown. 3. Severe home O2 dependent chronic obstructive pulmonary disease. 4. Profound weight loss, pending evaluation by Gastroenterology. PLAN: We will initiate clear liquid diet as the patient is currently asymptomatic. The patient has been seen by Gastroenterology who is considering upper and lower endoscopies to evaluate the patient's weight loss as well as the etiology of the common bile duct dilatation. If warranted, we will consider laparoscopic cholecystectomy under the same general anesthesia. Above findings and plan discussed with the patient and she indicates understanding of information given. I answered her questions. Job ID: [id number]
[2019-05-14] MEDS: MEROPENEM 1 GM/50 ML 1 GM in Premix Bag 1 BAG IVPB SCH ×3 (05:28→21:03)
[2019-05-14] MEDS: Morphine 2 MG/ML SYRINGE SLOW IVP PRN ×2 (06:36→20:28)
[2019-05-14] MEDS: Mometasone/Formoterol 120 PUFF INHALER INH SCH ×2 (07:23→19:17)
[2019-05-14] MEDS ORDERED: Iothalamate Meglumine 60% 50 ML VIAL FS ONE (07:44)
[2019-05-14] MEDS ORDERED: Indomethacin 50 MG SUPP ONE ×2 (07:54)
[2019-05-14] MEDS ORDERED: Albuterol Sulfate 1.25 MG/3 ML NEB ONE ×2 (08:47→11:24)
[2019-05-14] MEDS ORDERED: Midazolam HCl 2 mg/2 ml Vial ONE (08:51)
[2019-05-14 08:56] LABS: Anion Gap 13 mmol/L (10-20); BUN (Urea Nitrogen) 8 mg/dL (9.8-20.1); Calc. Creatinine Clearance 62 mL/min (70-130); Carbon Dioxide 25 mmol/L (22-29); Chloride 103 mmol/L (98-107); Estimated GFR-MDRD Greater than 90; Glucose 84 mg/dL (70-105); Magnesium 1.9 mg/dL (1.6-2.6); Phosphorus 3.5 mg/dL (2.3-4.7); Potassium 4.2 mmol/L (3.5-5.1); Sodium 137 mmol/L (136-145)
[2019-05-14] MEDS ORDERED: Fentanyl 100 MCG/2 ML VIAL ONE (09:01)
[2019-05-14] MEDS ORDERED: Rocuronium Bromide 10 MG/ML (10ML VIAL) ONE (10:33)
[2019-05-14] MEDS ORDERED: PROPOFOL 200 MG/20 ML VIAL ONE (10:33)
[2019-05-14] MEDS ORDERED: Lidocaine 1% PF 5 ML VIAL ONE (10:33)
[2019-05-14] MEDS ORDERED: Glycopyrrolate 0.2 MG/ML 5 ML SYRINGE ONE (10:33)
[2019-05-14] MEDS ORDERED: Promethazine HCl 25 MG/ML VIAL IM PRN (10:51)
[2019-05-14] MEDS ORDERED: Promethazine HCl 25 MG/ML VIAL SLOW IVP PRN (10:51)
--- NOTE | 2019-05-14 11:15 | OP ---
DATE OF PROCEDURE: 05/14/2019 HOME MORTGAGE DISCLOSURE ACT SPECIALIST SURGEON: None. PROCEDURES PERFORMED: 1. Endoscopic retrograde cholangiopancreatography with biliary sphincterotomy and sludge extraction. 2. Colonoscopy with snare polypectomy. INDICATIONS: 1. Choledocholithiasis, based on CT imaging demonstrating dilated common bile duct as well as calcific densities within the common bile duct. 2. Unintentional weight loss. MEDICATIONS: 1. See Anesthesia record. 2. Indomethacin 100 mg per rectum. FINDINGS: After discussion of the risks, benefits, and alternatives of the procedure, informed consent was obtained and witnessed. Pre-endoscopic cardiopulmonary examination was satisfactory. Time-out was performed before sedation was achieved. Sedation was achieved with Anesthesia assistance in the endoscopy unit. The patient was placed in a semiprone position on the fluoroscopy table, endotracheally intubated under general anesthesia. A survey upper endoscopy was performed using a Pentax adult forward viewing endoscope. The esophageal mucosa was normal. The gastric mucosa was normal. The duodenal mucosa was also normal. The upper endoscope was completely withdrawn. We then used a Pentax side-viewing duodenoscope and advanced it beyond the esophagus and stomach and into the second portion of the duodenum. The ampulla was brought into view with the endoscope in the short position. The ampulla was quite small, but otherwise normal-appearing. Using a triple lumen dome-tipped sphincterotome and a 0.035 guidewire, we selectively cannulated the common bile duct. The guidewire was passed up into the left intrahepatic system. Biliary cholangiogram was then performed. This showed only mild dilation of the common bile duct. No evidence of any stricture. No apparent filling defects. The cystic duct filled and was noted to be tortuous. Contrast then filled the gallbladder lumen with no apparent abnormalities. It was decided to proceed with biliary sphincterotomy and sweep of the bile duct. A generous biliary sphincterotomy was performed without difficulty. The sphincterotome was exchanged for a 9 to 12 mm balloon. Multiple sweeps were made of the common bile duct with the balloon fully inflated. In this fashion, we did extract a small amount of biliary sludge. At this point, the working apparatus was completely withdrawn. The duodenoscope was completely withdrawn suctioning out excess air and fluid. The patient was then repositioned for colonoscopy. Digital rectal exam was performed, which was unremarkable. A Pentax adult colonoscope was inserted into the anus and passed forward to the cecum in the usual fashion. The cecal base was identified by the appendiceal orifice as well as the ileocecal valve. The terminal ileum was intubated, and the ileal mucosa appeared normal. The colonoscope was then slowly withdrawn in a gradual and circumferential manner with careful examination of the entire colonic mucosa. The quality of the prep was good. In the cecum and appendiceal orifice, there was a small sessile polyp measuring about 2 mm in diameter. This was completely removed with cold snare and retrieved for pathology. In the descending colon, there were a couple of small polyps measuring 2 to 3 mm in diameter. These were completely removed with cold snare and retrieved for pathology. In the rectosigmoid colon, there was a larger polyp measuring about 1.3 cm. This was bilobed on a very short stalk. It was completely removed with hot snare and retrieved for pathology. Retroflexion in the rectum was otherwise unremarkable. The colonoscope was completely withdrawn and the patient allowed to recover. The patient tolerated the procedure well. There were no immediate postprocedure complications. IMPRESSION: 1. Normal survey esophagogastroduodenoscopy. 2. Mild common bile duct dilation with no stricture or apparent filling defects, with good filling of the cystic duct and gallbladder lumen on cholangiogram. 3. Successful biliary sphincterotomy and balloon extraction of a small amount of common bile duct sludge. 4. Tiny cecal polyp, completely removed with cold snare and retrieved for pathology. 5. Two small descending colon polyps, completely removed with cold snare and retrieved for pathology. 6. Single 1.3 cm bilobed semipedunculated rectosigmoid polyp, completely removed with hot snare and retrieved for pathology. RECOMMENDATIONS: 1. Advance diet as tolerated. 2. Monitor for potential post ERCP complications including pancreatitis. 3. Follow up pathology on the colon polyps. Findings were discussed with Dr. Clarke. Job ID: [id number]
--- NOTE | 2019-05-14 12:09 | RAD ---
ERCP: HISTORY: Bile duct stones. COMPARISON: CT abdomen from 05/12/2019. FINDINGS/IMPRESSION: A single intraoperative fluoroscopic image of the right abdomen is submitted for interpretation. An e ndoscope is noted in place, and a guidewire is seen within the common duct with opacification of the common duct and intrahepatic bile ducts. There is suggestion of a meniscus within the distal aspect o f the common duct without evidence of free spill of contrast into the duodenum, and this likely corre sponds to the patient's known calculus within the common duct. An additional very tiny filling defect is seen within the proximal common duct, near the level of the takeoff of the cystic duct, which may represent a tiny gas bubble or debris or less likely a very tiny calculus. There is a small amount o f contrast extending into the gallbladder via the cystic duct. The common duct is mildly dilated with minimal dilatation of the proximal intrahepatic bile ducts, especially on the left. Correlation with intraoperative findings is recommended. POS: OFF
[2019-05-14] MEDS: busPIRone HCl 5 MG TAB PO SCH ×2 (13:12→20:23)
[2019-05-14] MEDS: Nicotine 21 MG PATCH TD SCH ×2 (13:12→13:15)
[2019-05-14] MEDS: predniSONE 20 MG TAB PO SCH (13:13)
[2019-05-14] MEDS: Saccharomyces boulardii 250 MG CAP PO SCH (13:13)
[2019-05-14] MEDS: DULoxetine 60 MG CAP PO SCH (13:13)
--- NOTE | 2019-05-14 16:55 | PRG ---
DATE OF SERVICE: 05/14/2019 SUBJECTIVE: Joan Villalpando denies shortness of breath. She has minimal abdominal discomfort. She is on the schedule today for an ERCP with possible stone extraction. She denies shortness of breath overnight. OBJECTIVE: LUNGS: Clear. LABORATORY DATA: Sodium 137, potassium 4.2, chloride 103, bicarb 25, BUN 8, and creatinine 0.64. IMPRESSION: Choledocholithiasis tentatively for ERCP today and upper endoscopy. I would guess at some point she will need a cholecystectomy as well. The COPD is not a clinical issue at this point, appears to be stable. Job ID: [id number]
--- NOTE | 2019-05-14 17:05 | PDOC.HOSPP ---
- Subjective Encounter Date: 05/14/19 Encounter Time: 16:00 Subjective: Pt seen for followup re: choledocholithiasis. s/p ERCP and bidirectional scopes , feels better. - Objective Vital Signs & Weight: Vital Signs (12 hours) Temp Pulse Resp BP Pulse Ox 05/14/19 07:23 98.4 F 84 14 133/70 95 Weight Admit Weight 89 lb 15.178 oz Weight 89 lb 15.178 oz I&O: 05/13/19 05/14/19 05/15/19 06:59 06:59 06:59 Intake Total 2100 Balance 2100 Result Diagrams: 05/13/19 03:45 05/14/19 08:04 Additional Labs: Labs and MARs reviewed by ca Hospitalist ROS - Review of Systems Cardiovascular: denies: chest pain, palpitations, orthopnea, paroxysmal noc. dyspnea, edema, light headedness Gastrointestinal: denies: nausea, vomiting, abdominal pain, diarrhea, constipation, melena, hematochezia - Medication Medications: Active Medications Generic Name Dose Route Start Last Admin Trade Name Freq PRN Reason Stop Dose Admin Acetaminophen 650 mg 05/12/19 09:38 05/13/19 20:05 Tylenol PO 650 mg Q4H PRN Administration Headache/Fever/Mild Pain (1-3) Buspirone HCl 7.5 mg 05/13/19 21:00 05/14/19 13:12 Buspar PO 7.5 mg BID ALESSANDRA Administration Duloxetine HCl 60 mg 05/13/19 09:00 05/14/19 13:13 Cymbalta PO 60 mg DAILY ALESSANDRA Administration Meropenem 1 gm/ Device 50 mls @ 100 mls/hr 05/12/19 22:00 05/14/19 13:11 IVPB 50 mls Q8HR ALESSANDRA Administration Mometasone Furoate/Formoterol Fumar 2 puff 05/13/19 18:30 05/14/19 07:23 Dulera 200 Mcg/5 Mcg Inhaler INH Not Given BID-RT ALESSANDRA Morphine Sulfate 2 mg 05/13/19 19:56 05/14/19 06:36 Morphine SLOW IVP 2 mg Q4H PRN Administration Moderate to Severe Pain (6-10) Nicotine 21 mg 05/14/19 09:00 05/14/19 13:15 Nicoderm Patch TD Not Given DAILY ALESSANDRA Prednisone 20 mg 05/14/19 08:00 05/14/19 13:13 Prednisone PO 20 mg QAM- ALESSANDRA Administration Saccharomyces Boulardii 250 mg 05/14/19 09:00 05/14/19 13:13 Florastor PO 250 mg DAILY ALESSANDRA Administration Sodium Chloride 10 ml 05/12/19 21:00 05/14/19 13:13 Flush - Normal Saline IVF 10 ml Q12HR ALESSANDRA Administration Sodium Chloride 10 ml 05/12/19 09:22 05/13/19 14:39 Flush - Normal Saline IVF 10 ml PRN PRN Administration Saline Flush - Exam General - other findings: Malnourished Eye: anicteric sclera ENT: moist mucosa Neck: supple Heart: RRR, no rubs Respiratory: CTAB Gastrointestinal: soft, non-tender, normal bowel sounds Psychiatric: normal affect, normal behavior Hosp A/P (1) Choledocholithiasis Code(s): K80.50 - CALCULUS OF BILE DUCT W/O CHOLANGITIS OR CHOLECYST W/O OBST Status: Acute (2) Abnormal LFTs (liver function tests) Code(s): R94.5 - ABNORMAL RESULTS OF LIVER FUNCTION STUDIES Status: Acute (3) Weight loss Status: Chronic (4) Anxiety and depression Code(s): F41.9 - ANXIETY DISORDER, UNSPECIFIED; F32.9 - MAJOR DEPRESSIVE DISORDER, SINGLE EPISODE, UNSPECIFIED Status: Chronic (5) GERD (gastroesophageal reflux disease) Code(s): K21.9 - GASTRO-ESOPHAGEAL REFLUX DISEASE WITHOUT ESOPHAGITIS Status: Chronic Qualifiers: Esophagitis presence: without esophagitis Qualified Code(s): K21.9 - Gastro -esophageal reflux disease without esophagitis (6) Tobacco abuse Code(s): Z72.0 - TOBACCO USE Status: Chronic (7) Protein-calorie malnutrition, moderate Code(s): E44.0 - MODERATE PROTEIN-CALORIE MALNUTRITION Status: Chronic (8) COPD (chronic obstructive pulmonary disease) Status: Chronic - Plan s/p ERCP and bidirectional scopes. Watch for post-ERCP pancreatitis. Clinically, abdomen is benigh. Continue nicotine patch. Continue oxygen, steroids and bronchodilators. Anxiety and depression moderate, stable.
--- NOTE | 2019-05-14 17:43 | PRG ---
DATE OF SERVICE: 05/14/2019 SUBJECTIVE: Ms. Villalpando is a 58-year-old woman with history of severe COPD, whom I was seen in consultation for acute cholecystitis and cholelithiasis. The patient underwent upper and lower endoscopies today. ERCP revealed no common bile duct or cystic ductal obstructions. At the time of my evaluation, the patient is awake and alert, reports no abdominal pain. She has remained with no abdominal pain since yesterday. OBJECTIVE: VITAL SIGNS: Today include blood pressure 133/70, pulse 84, respiratory rate is 14, temperature 98.4 degrees Fahrenheit, oxygen saturation 95% on 4L via nasal cannula oxygen. HEART: Regular rate and rhythm. LUNGS: Bibasilar rhonchi. Breathing regular and nonlabored. ABDOMEN: Soft, nontender, and nondistended. NEUROLOGIC: No focal deficits present. LABORATORY FINDINGS: Today includes metabolic profile; sodium 137, potassium 4.2, chloride is 103, bicarb is 25, BUN 8, creatinine 0.64, and glucose 84. Magnesium 1.9. Phosphorus 3.5. IMPRESSIONS: 1. Resolving acute cholecystitis. 2. Status post upper and lower endoscopies with no evidence of cystic or common bile ductal obstructions. RECOMMENDATIONS: Initiate clear liquid diet and advance as tolerated. There is no acute surgical indication for this patient at this time. If she tolerates diet, she may be discharged at the discretion of primary service. Job ID: [id number]
[2019-05-14] MEDS ORDERED: Montelukast Sodium 10 mg Tablet PO SCH (21:00)
[2019-05-15] MEDS: Morphine 2 MG/ML SYRINGE SLOW IVP PRN (02:35)
[2019-05-15] MEDS: MEROPENEM 1 GM/50 ML 1 GM in Premix Bag 1 BAG IVPB SCH (05:16)
[2019-05-15] MEDS: Mometasone/Formoterol 120 PUFF INHALER INH SCH (06:56)
[2019-05-15] MEDS: DULoxetine 60 MG CAP PO SCH (08:44)
[2019-05-15] MEDS: Saccharomyces boulardii 250 MG CAP PO SCH (08:44)
[2019-05-15] MEDS: predniSONE 20 MG TAB PO SCH (08:44)
[2019-05-15] MEDS: Nicotine 21 MG PATCH TD SCH (08:45)
[2019-05-15] MEDS: busPIRone HCl 5 MG TAB PO SCH (08:49)
[2019-05-15] MEDS ORDERED: Famotidine 20 MG TAB PO SCH (09:00)
[2019-05-15] MEDS ORDERED: PROVENTIL INHALER 6.7 G (200 INHALATIONS) INH SCH (09:00)
[2019-05-15] MEDS ORDERED: Non-Formulary Item 1 EACH (Ranitidine Hcl [Ranitidine Hcl] 150 MG) PO SCH (09:00)
[2019-05-15 11:03] VITALS: BP 149/79; TEMP 98.6
[2019-05-15] MEDS ORDERED: Ciprofloxacin 500 MG TAB PO SCH (20:00)
--- NOTE | 2019-05-16 00:54 | DIS ---
DATE OF ADMISSION: 05/12/2019 DATE OF DISCHARGE: 05/15/2019 PRIMARY CARE PROVIDERS: GARRY Hinton DISCHARGE DIAGNOSES: 1. Choledocholithiasis. 2. Acute cholecystitis. 3. Chronic obstructive pulmonary disease. 4. Moderate protein-calorie malnutrition. 5. Tobacco abuse. 6. Anxiety and depression. CONDITION OF PATIENT ON THE DAY OF DISCHARGE: Stable. I assessed Ms. Villalpando on the day of discharge. She denies any chest pain or shortness of breath. Vital signs are stable. S1 and S2 are heard, regular. Lungs are clear to auscultation bilaterally. DISCHARGE MEDICATIONS: She received a prescription for ciprofloxacin 500 mg 2 times a day, six doses from [facility]. No change was made to her pre-admission home medications as dictated by Mr. Fry in his history and physical note dated May 12, 2019. CONSULTATIONS DURING THIS HOSPITALIZATION: 1. General Surgery, Dr. Clarke. 2. Gastroenterology, Dr. Casas. 3. Pulmonology, Dr. Giron. HOSPITAL COURSE: Ms. Villalpando is a pleasant 58-year-old lady, who was admitted to [facility] for choledocholithiasis and acute cholecystitis on May 12, 2019. She was seen by [facility]astro[facility]ology [facility]. She also had complaint of weight loss. On May 14, she underwent ERCP with biliary sphincterotomy and sludge extraction as well as colonoscopy with snare polypectomy. She improved clinically. There was no evidence of post ERCP complications such as pancreatitis. She has been discharged home by [facility] with prescription for ciprofloxacin. Many thanks for allowing me to participate in your patient's care. Please feel free to contact me with any questions or concerns. Post discharge followup: With Dr. Casas, with Dr. Clarke, with Dr. Giron, and with primary care provider. DISCHARGE DESTINATION: Home. TIME SPENT: Total amount of time spent coordinating this discharge: 32 minutes. Job ID: [id number]
== END 2019-05-15 12:00 | disposition home or self-care (01) | DRG 445 ==
LOC: ERS 04:05 → SJJU 07:30
PROVIDERS: ADMIT Hospitalist; ATTEND Hospitalist
PROC: 0F798ZZ Dilation of Common Bile Duct, Via Natural or Artificial Opening Endoscopic (ICD-10-PCS; principal; 2019-05-14)
PROC: 0FC98ZZ Extirpation of Matter from Common Bile Duct, Via Natural or Artificial Opening Endoscopic (ICD-10-PCS; 2019-05-14)
PROC: 0DBM8ZZ Excision of Descending Colon, Via Natural or Artificial Opening Endoscopic (ICD-10-PCS; 2019-05-14)
PROC: 0DBP8ZZ Excision of Rectum, Via Natural or Artificial Opening Endoscopic (ICD-10-PCS; 2019-05-14)
PROC: 0DBN8ZZ Excision of Sigmoid Colon, Via Natural or Artificial Opening Endoscopic (ICD-10-PCS; 2019-05-14)
DX: K80.62 Calculus of gallbladder and bile duct with acute cholecystitis without obstruction (principal); Z68.1 Body mass index [BMI] 19.9 or less, adult; E44.0 Moderate protein-calorie malnutrition; K63.5 Polyp of colon; J44.9 Chronic obstructive pulmonary disease, unspecified; F41.9 Anxiety disorder, unspecified; F32.9 Major depressive disorder, single episode, unspecified; F17.210 Nicotine dependence, cigarettes, uncomplicated; K21.9 Gastro-esophageal reflux disease without esophagitis; Z88.0 Allergy status to penicillin; Z99.81 Dependence on supplemental oxygen; Z88.8 Allergy status to other drugs, medicaments and biological substances; Z79.899 Other long term (current) drug therapy; Z79.51 Long term (current) use of inhaled steroids; Z79.52 Long term (current) use of systemic steroids
CPT/HCPCS: 36415; 36416; 74177; 74330; 76705; 80048; 80053; 83690; 83735; 84100; 85025; 87324; 87449; 88305; 94760; 96361; 96365; 96375; J0131; J1610; J2001; J2185; J2250; J2270; J2550; J2704; J3010; J7512; J7620; Q9966

== ENCOUNTER 2019-08-10 12:11 | Outpatient (CLI) | payer MEDICARE ==
--- NOTE | 2019-08-10 12:33 | RAD ---
EXAM: Chest Two Views 08/10/2019 12:29 PM HISTORY: Cough COMPARISON: Prior exam dated March 17, 2019 FINDINGS: Heart: Normal in size and contour. Pulmonary vessels: Normal. Costophrenic angles: There are patchy interstitial and airspace opacities within the lateral costophr enic angles bilaterally. Lungs: COPD change is largely stable. Pneumothorax: None. Osseous structures:Intact. Additional findings: None. IMPRESSION: Patchy interstitial and airspace opacity seen within the periphery of both lower lobes may reflect pn eumonia. Radiographic follow-up is recommended. Stable COPD change.
== END 2019-08-10 12:12 | disposition home or self-care (01) ==
LOC: BICRAD 12:11
PROVIDERS: ATTEND Internal Medicine
DX: R05 Cough (principal); R91.8 Other nonspecific abnormal finding of lung field
CPT/HCPCS: 36415; 71046; 80053; 81001; 82977; 83690; 85025; 87086

== ENCOUNTER 2019-10-02 11:39 | Outpatient (CLI) | payer MEDICARE ==
--- NOTE | 2019-10-02 12:16 | RAD ---
PA AND LATERAL CHEST: HISTORY: Cough for about a week. COMPARISON: A 08/10/2019 exam. FINDINGS: Heart size is within normal limits. Chronic-appearing lung changes are seen. I do not see a definit e acute process. IMPRESSION: Chronic-appearing lung change. POS: TPC
== END 2019-10-02 11:40 | disposition home or self-care (01) ==
LOC: BICRAD 11:39
PROVIDERS: ATTEND Internal Medicine
DX: R05 Cough (principal)
CPT/HCPCS: 71046

== ENCOUNTER 2019-12-22 09:17 | Outpatient (CLI) | payer MEDICARE, OTHER ==
--- NOTE | 2019-12-22 12:56 | RAD ---
CERVICAL SPINE 3 VIEWS: HISTORY: Cervical radiculopathy. FINDINGS: Moderate degenerative changes of the mid cervical spine. Loss of disk space with hypertrophic spurri ng and posterior spondylosis noted at the C4-5 and C5-6 levels. The other disk spaces are preserved. There is slight anterior wedging with spurring involving the C4, C5, and C6 vertebrae. Posterior s pondylosis is prominent at the C3-4 and C4-5 levels which appear to encroach into the spinal canal. Mild facet hypertrophy. IMPRESSION: Moderate degenerative changes of the mid cervical spine most prominent at C4-5 and C5-6 levels as rafael cribed. POS: AGW
--- NOTE | 2019-12-22 14:22 | MRI ---
MRI CERVICAL SPINE WITHOUT CONTAST: 12/22/19 INDICATION: Cervical radiculopathy. No comparison. FINDINGS: Cervical vertebrae maintain height. There are degenerative changes with loss of disc space and hypert rophy spurring, most prominent at the C4-5, C5-6 and C6-7 levels. There is abnormal vertebral body ed maría at C4, C5, C6, and C7. Edema extends into the pedicles on the left at C4 and C6. No significant disc bulge or spondylosis seen at C2-3 or C3-4. Foramina are patent at these levels. At C4-5, posterior disc bulge and spondylosis abut the anterior cord. This mildly flattens the anteri or cord. Mild bilateral foraminal stenosis secondary to facet and uncinate hypertrophy. C5-6: Disc bulge and spondylosis abuts and mildly flatten the anterior cord. Bilateral foraminal sten osis. C6-7: Disc bulge and spondylosis flatten the thecal sac and mild efface the anterior subarachnoid spa ce. No cord impingement. Mild foraminal narrowing. Cord signal appears normally preserved. IMPRESSION: 1. Abnormal edema is seen at C4, C5, C6 and C7 vertebrae. This is felt to most likely be on a de generative bases and represent severe Modic type I degenerative change. Consecutive vertebral body i nvolvement would argue against pathologic process such as metastatic disease. This would also be unus ual for trauma to effect consecutive vertebrae. However, if there is a history of recent trauma in th is patient, consider short term follow-up to assess for vertebral body height loss. 2. The spondylolytic changes at C4-5 and C5-6 mildly compress the cord and produce foraminal dennis nosis as described above. POS: EDWARD
== END 2019-12-22 09:18 | disposition home or self-care (01) ==
LOC: TBSIIMAG 09:17
PROVIDERS: ATTEND Internal Medicine
DX: M47.22 Other spondylosis with radiculopathy, cervical region (principal); M43.02 Spondylolysis, cervical region; M48.02 Spinal stenosis, cervical region; R60.0 Localized edema
CPT/HCPCS: 72040; 72141

== ENCOUNTER 2020-05-01 15:03 | Outpatient (CLI) | payer MEDICARE ==
--- NOTE | 2020-05-01 15:39 | SJPRAD ---
EXAM: Chest 2 views: HISTORY: Decreased oxygen saturation and COPD COMPARISON: 11/16/2019 FINDINGS: There is a normal-sized cardiomediastinal silhouette. Hyperexpansion of the lungs is consistent with COPD. Increased interstitial markings are present. Biapical pleural thickening is stable. Multiple skin folds project over the left chest without obvious pneumothorax. There is no evidence of consoli dation, mass, or pleural effusion. No acute osseous abnormality. IMPRESSION: Stable exam
== END 2020-05-01 15:04 | disposition home or self-care (01) ==
LOC: SCSRAD 15:03
PROVIDERS: ATTEND Physician Assistant
DX: R05 Cough (principal)
CPT/HCPCS: 87635; U0003

== ENCOUNTER 2021-08-29 08:41 | Outpatient (CLI) | payer MEDICARE | END 2021-08-29 08:42 | disposition home or self-care (01) | LOC: BICULT 08:41 | PROVIDERS: ATTEND Internal Medicine | DX: R10.11 Right upper quadrant pain (principal); K80.20 Calculus of gallbladder without cholecystitis without obstruction | CPT/HCPCS: 76705 ==

== ENCOUNTER 2022-11-09 14:38 | Outpatient (CLI) | payer MEDICARE | END 2022-11-09 14:39 | disposition home or self-care (01) | LOC: BICULT 14:38 | PROVIDERS: ATTEND Internal Medicine | DX: E04.1 Nontoxic single thyroid nodule (principal) | CPT/HCPCS: 76536 ==